=== PATIENT | female | born 1945 | race Caucasian/White ===

== ENCOUNTER 2023-08-05 08:43 | Outpatient (OUT) | payer MEDICARE, BC, SELFPAY ==
--- NOTE | 2023-08-05 | VEIN_ITS ---
Patient: BROWN LAI Exam Date: 08/05/2023 : 1945 Gender:F Ordering : DR JORGE L SANCHES M.D. Admission #: [id number] Family : Order #: [id number] CLICK HERE TO VIEW EXAM RADIOLOGY REPORT PROCEDURE: VC EXT VENOUS REFLUX TARIK LMTD COMPARISON: None. INDICATIONS: Pain due to varicose veins of bilateral legs I83.813 TECHNIQUE: Duplex imaging of the lower extremity to assess the deep and superficial venous system for the presence of deep or superficial venous incompetence and to document the location and severity of disease. The study includes evaluation of the great saphenous vein (GSV), anterior accessory saphenous vein (AASV) and small saphenous vein (SSV). Patient scanned in reverse Trendelenburg and standing. FINDINGS: RIGHT LOWER EXTREMITY: Saphenofemoral Junction Reflux: Yes 9.0mm 0.7 sec GSV: Diam (mm) Reflux/ Time (sec) Proximal Thigh 8.3 Yes 0.5 Mid Thigh 4.5 Yes 1.4 Distal Thigh 2.8 No Prox Calf 3.6 Yes 0.4 Mid Calf 2.5 Yes 0.4 Saphenopopliteal Junction Reflux: 4.1mm Yes 3.0 SSV: Proximal Calf 3.1 Yes 2.1 Mid Calf 3.3 Yes 2.1 AASV: Proximal Thigh 3.3 Yes 0.6 Mid Thigh 2.4 No Distal Thigh Thrombi: No acute or chronic thrombus. Compressibility: Normal. Flow: Minimal deep venous reflux. Preforator: Prox medial lower leg 3.4 mm with 2.3s reflux. Tech Note: Marked arterial plaque distal WEIGHT LOSS PHYSICIAN. Incompetent varicose vein proximal medial lower leg measures 2.0 mm with 0.4s reflux. Lateral knee varicosity measures 2.3 mm with 0.8s reflux. LEFT LOWER EXTREMITY: Saphenofemoral Junction Reflux: Yes 9.0 mm 0.8 sec GSV: Diam (mm) Reflux/Time (sec) Proximal Thigh 7.9 Yes 0.8 Mid Thigh 4.5 Yes 2.0 Distal Thigh 3.7 Yes 2.2 Prox Calf 2.6 Yes 0.6 Mid Calf 2.1 Yes 0.5 Saphenopopliteal Junction Relux: 2.1 mm Yes 0.3 SSV: Proximal Calf 2.4 Yes 1.8 Mid Calf 3.0 Yes 0.2 AASV: Proximal Thigh 3.7 No Mid Thigh 2.5 Yes 2.0 Distal Thigh Thrombi: No acute or chronic thrombus. Compressibility: Normal. Flow: Mild deep venous reflux. Netting Weaver: Prox posterior calf off gastroc 4.7 mm with 1.4s reflux. Tech Note: Marked arterial plaque distal WEIGHT LOSS PHYSICIAN. Incompetent varicose vein proximal posterior calf off cone former measures 4.6 mm with 2.5s reflux. CONCLUSION: 1. Mild right and moderate left great saphenous vein venous insufficiency with dilatation and saphenofemoral junction reflux 2. Mild to moderate bilateral small saphenous vein venous insufficiency with saphenous popliteal junction reflux on the right but no dilatation 3. Moderate venous insufficiency left anterior accessory saphenous vein with no dilatation 4. Bilateral incompetent perforating veins 5. Left leg incompetent varicose veins Dictated by: Jorge L Sanches MD on 08/05/2023 at 10:11 Approved by: Jorge L Sanches MD on 08/05/2023 at 10:13
--- NOTE | 2023-08-05 | VEIN_ITS ---
Patient: BROWN LAI Exam Date: 08/05/2023 : 1945 Gender:F Ordering : DR JORGE L SANCHES M.D. Admission #: [id number] Family : Order #: [id number] CLICK HERE TO VIEW EXAM RADIOLOGY REPORT PROCEDURE: FACILITY [facility] - OFFICE VISIT INITIAL COMPARISON: None. PROGRESS NOTES: 78-year-old female who presents with a 20 year history of lower extremity pain, swelling and varicose veins . The patient rates pain as a 9 on a scale of 1-10. The patient describes the pain as aching burning occasionally dull. The patient's symptoms are significantly exacerbated by prolonged sitting and standing and affect her activities of daily living including her dancing which she likes to do several times per week. The patient does exercise by walking multiple days per week in addition to her dancing. The patient's symptoms are marginally improved by rest, leg elevation, exercise, support stockings which she has worn for approximately 20 years and over the counter ibuprofen and Tylenol. The patient worked in [employer] on her feet for over 40 years. The patient denies any signs and symptoms to suggest arterial ischemia. The patient describes a family history significant for cancer in her mother, aneurysm in her father. Congestive heart failure in a sister. . The patient has never smoked. The patient does not use alcohol, or illicit drugs. No history of deep venous thrombus or pulmonary embolus. See separate history and physical for medication list. No prior treatment for varicose or spider veins. Long-term use of compression stockings. Nursing notes were reviewed. After history and physical exam I discussed at length the pathophysiology of venous hypertension and possible treatments, therapies and strategies available. We discussed at length the importance of elevating the lower extremities above the level of the heart, increased physical activity and compression stocking use. We discussed surgical alternatives including ligation and stripping and phlebectomy. We discussed conservative treatment with compression stockings. We discussed intravenous laser ablation, micro foam chemical ablation and injection sclerotherapy. Risks benefits and alternatives were discussed with the patient and questions were answered Ultrasound venous reflux study performed the same day was discussed at length with the patient. The report demonstrates mild right and moderate left great saphenous vein venous insufficiency with saphenofemoral junction reflux. Mild right moderate bilateral small saphenous vein venous insufficiency without dilatation. Moderate left anterior accessory saphenous vein venous insufficiency without dilatation. Bilateral incompetent perforating veins the left leg incompetent varicose veins. PHYSICAL EXAM: The right leg demonstrates mild scattered varicose and reticular veins. No active ulceration. Mild subcutaneous edema of the ankle. No active ulceration. No hemosiderin staining. The left leg demonstrates mild scattered varicose and reticular veins. No active ulceration. Mild subcutaneous edema of the ankle. No active ulceration. No hemosiderin staining. Both thighs, legs and feet were symmetrically warm to the touch. Good posterior tibial and dorsalis pedis pulses were present bilaterally. VEIN/[facility] IMPRESSION: 1. Bilateral great saphenous vein venous insufficiency with dilatation, left greater than right. Bilateral small saphenous vein and left anterior accessory saphenous vein venous insufficiency without dilatation 2. Moderate left lower extremity varicose veins 3. Mild bilateral lower extremity subcutaneous edema 4. Mild flow significant arterial disease 5. CEAP: C3, Ep, As, Pr PLAN: 1. Endovenous laser ablation left great saphenous vein 2. Micro foam chemical ablation left leg incompetent varicose veins 3. Bilateral injection sclerotherapy for reticular and spider veins 4. Long-term use bilateral 20-30 mm compression stockings 5. Elevated legs and continued increased physical activity for symptomatic relief Nurse notes, history and physical were reviewed and confirmed, see attached forms. The nurse was present throughout the physical exam and consultation Dictated by: Jorge L Sanches MD on 08/05/2023 at 12:08 Approved by: Jorge L Sanches MD on 08/05/2023 at 12:13
== END 2023-08-05 08:44 | disposition home or self-care (01) ==
LOC: VC 08:44
PROVIDERS: PCP Radiology Diagnostic Radiology; Visit Provider Radiology Diagnostic Radiology
DX: I83.813 Varicose veins of bilateral lower extremities with pain (principal)
CPT/HCPCS: 93970; G0463

== ENCOUNTER 2023-09-04 09:51 | Outpatient (OUT) | payer MEDICARE, BC, SELFPAY ==
--- NOTE | 2023-09-04 09:53 | VEIN_ITS ---
The [address] [address] Patient Name: BROWN LAI MRN: [id number] date: 1945 Sex: F Assigned Patient Location: Current Patient Location: Accession/Order Number: [id number] Exam Date: 09/04/2023 10:25 Report Date: 09/04/2023 11:19 At the request of: FIDELIA ALAN Procedure: VC Endovenous Ablation 1VeinLT EXAMINATION: VC Endovenous Ablation 1VeinLT HISTORY: I83.813 Painful varicose veins of bilat lower extremities The risks and benefits of the procedure had been previously discussed, and were rediscussed at length. Informed written consent was obtained. Flavia Em RN and Ute Hughes RDMS, RVT assisted. Time out procedure was performed. The left lower extremity was prepared and draped in the usual sterile fashion to allow knee flexion in the sterile field. Duplex ultrasound probe was draped in a sterile cover, sterile transmission gel was used. Venous mapping was performed with the areas of dilation and large tributaries marked. The total length was 32 cm from the entry proximal calf to 3 cm below the Saphenofemoral junction. The diameter of the left great saphenous vein ranged from 7.9 mm. A 30 gauge needle and 1% buffered lidocaine was used to anesthetize the entry site. A 4 mm incision was made with a scalpel and the saphenous vein was entered percutaneously under direct ultrasound guidance with a micropuncture set, a single stick was successful in gaining access. A micro-guide wire was inserted and the needle removed. A micro-set including a dilator was inserted over the microwire and the needle and dilator were removed. A guide wire was inserted through the micro-set and guided through the saphenous vein to the saphenofemoral junction. The dilator was removed and an introducer sheath was inserted over the wire until the end of the sheath entered the saphenofemoral junction. The dilator and wire were removed and the 600 micron fiber was introduced and placed and positioned so that it extended beyond the sheath and was 3 cm distal to the saphenofemoral or saphenopopliteal junction. Final position of the fiber was determined by ultrasound guidance and duplex imaging. Tumescent anesthetic was delivered by ultrasound guidance. 250 cc of fluid was delivered along the entire course of the saphenous vein. The solution consisted of 1000 cc of normal saline with 40 mL of 1% lidocaine and 20 mL of sodium bicarbonate. A final positioning check was made. The energy source was turned on by means of the foot pedal and the fiber and sheath were withdrawn. The total number of Joules delivered was 1528. The laser was active for 191 seconds under continuous pulse, average laser use of 8 J. Laser start time 10:40 AM, 09/04/2023. Laser stop time 10:45 AM, 09/04/2023. A duplex ultrasound revealed compressibility and flow at the saphenofemoral junction immediately after the procedure. Hemostasis at the access site was achieved. The skin incision of the saphenous vein was closed with a 4 x 4. A compression stocking was applied. Postop instructions were given. A follow up appointment was recommended and scheduled. The patient tolerated the procedure well. Electronically authenticated by: ROBIN CHARLES Date: 09/04/2023 11:19
[2023-09-04] MEDS: LIDOCAINE HCL 1% 100 MG/10 ML MDV INJ (10:23)
[2023-09-04] MEDS: 0.9 % SODIUM CHLORIDE 500 ML, LIDOCAINE HCL 20 ML, SODIUM BICARBONATE 10 MEQ INJ (10:24)
== END 2023-09-04 09:52 | disposition home or self-care (01) ==
PROVIDERS: PCP Radiology Diagnostic Radiology; Visit Provider Radiology Diagnostic Radiology
DX: I83.813 Varicose veins of bilateral lower extremities with pain (principal)
CPT/HCPCS: 36478

== ENCOUNTER 2023-09-11 09:16 | Outpatient (OUT) | payer MEDICARE, BC, SELFPAY ==
--- NOTE | 2023-09-11 | VEIN_ITS ---
Patient: BROWN LAI Exam Date: 09/11/2023 : 1945 Gender:F Ordering : DR JORGE L SANCHES M.D. Admission #: [id number] Family : Order #: [id number] CLICK HERE TO VIEW EXAM RADIOLOGY REPORT PROCEDURE: [facility] LMTD VEIN C[facility] - OFFICE VISIT FOLLOW UP COMPARISON: None. PROGRESS NOTES: The patient reports no significant problems following intravenous laser ablation left great saphenous vein. The patient did not require oral analgesics. The patient has worn her compression stocking. The patient has tried exercise to the best of her ability. Physical exam demonstrates no areas of bruising. No erythema or warmth to suggest cellulitis with oral by this. No ulceration Review of the ultrasound performed the same day demonstrates occlusive thrombus extending throughout the treated left great saphenous vein with heat induced thrombus 1.6 cm from the saphenofemoral junction. No deep vein thrombus.. The patient expressed a desire to proceed with treatment of incompetent left leg varicose veins with micro foam chemical ablation. VEIN/[facility] Facility EST LMTD IMPRESSION: 1. Successful ablation of the left great saphenous vein. 2. Persistent incompetent left leg varicose veins. PLAN: Micro foam chemical ablation left leg incompetent varicose veins Nurse notes, history and physical were reviewed and confirmed, see attached forms. The nurse was present throughout the physical exam and consultation Dictated by: Jorge L Sanches MD on 09/11/2023 at 11:26 Approved by: Jorge L Sanches MD on 09/11/2023 at 13:15
--- NOTE | 2023-09-11 | VEIN_ITS ---
Patient: BROWN LAI Exam Date: 09/11/2023 : 1945 Gender:F Ordering : DR JORGE L SANCHES M.D. Admission #: [id number] Family : Order #: [id number] CLICK HERE TO VIEW EXAM RADIOLOGY REPORT PROCEDURE: VC EXT VENOUS LT LIMITED COMPARISON: None. INDICATIONS: Phlebitis of superficial veins of rt lower extremity I80.01 TECHNIQUE: Lower extremity king scale and Duplex Doppler evaluation of the deep venous system from the inguinal ligament through the calf veins. FINDINGS: REGION: Left lower extremity. THROMBI: Negative for DVT. Echogenic thrombus visualized 1.6 cm from the saphenofemoral junction and extends throughout the great saphenous vein to proximal medial lower leg at point of catheter insertion. COMPRESSIBILITY: Non-compressible segments corresponding to thrombus FLOW: Areas of no flow corresponding to thrombus CONCLUSION: Post ablation occlusion of left great saphenous vein with heat induced thrombus 1.6 cm from the saphenofemoral junction. Dictated by: Jorge L Sanches MD on 09/11/2023 at 09:57 Approved by: Jorge L Sanches MD on 09/11/2023 at 10:05
== END 2023-09-11 09:17 | disposition home or self-care (01) ==
PROVIDERS: PCP Radiology Diagnostic Radiology; Visit Provider Radiology Diagnostic Radiology
DX: I80.02 Phlebitis and thrombophlebitis of superficial vessels of left lower extremity (principal)
CPT/HCPCS: 93971; G0463

== ENCOUNTER 2023-09-25 09:02 | Outpatient (OUT) | payer MEDICARE, BC, SELFPAY ==
--- NOTE | 2023-09-25 09:05 | VEIN_ITS ---
The [address] [address] Patient Name: BROWN LAI MRN: [id number] date: 1945 Sex: F Assigned Patient Location: Current Patient Location: Accession/Order Number: [id number] Exam Date: 09/25/2023 09:05 Report Date: 09/25/2023 12:34 At the request of: FIDELIA ALAN Procedure: VC INJ Foam Sclerosant WUS FORM TAMPER OPERATOR PROCEDURE: VC INJ Foam Sclerosant WUS FORM TAMPER OPERATOR COMPARISON: None. HISTORY: I83.813 Painful varicose veins of bilateral lower extremitie Pre-operative Diagnosis: CEAP class C3 venous insufficiency with pain, tenderness, edema and incompetent left saphenous and varicose vein(s), chronic venous insufficiency left leg secondary to venous incompetence Post-operative Diagnosis: CEAP class C3 venous insufficiency with pain, tenderness, edema and incompetent left saphenous and varicose vein(s), chronic venous insufficiency left leg secondary to venous incompetence Procedure Performed: 1. Ultrasound-guided microfoam chemical ablation with Varithenaregistered 2. Intraoperative ultrasound guidance Anesthesia: None Indications for Procedure: 78-year-old female who presents with long history of lower extremity pain swelling and edema. The patient failed conservative medical therapy including medical compression stockings, exercise and analgesics. Prior procedures include intravenous laser ablation. Multiple incompetent varicosities of the left leg. Duplex scan showed reflux and enlarged diameters up to 3.5 mm. The patient underwent informed consent including management options where the complications of infection, bleeding, pain, and skin injury were discussed. Particular attention was spent discussing thrombus extension and deep vein thrombosis as well as the possibility of pulmonary embolus and treatment with oral or injectable blood thinners. Procedure: The patient walked to the procedure room. All applicable staff donned appropriate apparel. A procedure timeout was performed to confirm correct patient, correct extremity, correct procedure, and correct room set-up including presence of all applicable supplies, devices, and drugs. A duplex ultrasound, performed by myself confirmed the location and incompetence of branch saphenous varicosities and their course was marked on the skin together with the dilated tributaries. The extent of treatment of the vein and the associated varicosities was determined through ultrasound mapping. The skin was prepped and then punctured with a butterfly needle and advanced under ultrasound guidance. The Varithenaregistered canister was activated and the canister was primed and purged as required in the instructions for use. Varithenaregistered was drawn into a sterile syringe. The following injections were made: 7 cc injected into 3.5 mm day left distal posterior thigh 3 cc injected into a 3 mm vein left posterior popliteal fossa 3 cc injected into a 3 mm vein right popliteal fossa Varithenaregistered was slowly administered at 0.5-1.0 cc/second with close observation by ultrasound of its course in the vessels. Total volume utilized was: 13 cc. Following administration of Varithenaregistered the leg was elevated and the patient was asked to repeatedly dorsiflex the ankle to limit flow of Varithenaregistered into perforating veins. Once appropriate spasm had been confirmed in the treated veins, the vascular catheter was removed from the leg and light pressure was applied over the puncture site for hemostasis. The common femoral and deep superficial veins were then evaluated for flow and compressibility prior to dressing placement. The lower extremity was kept elevated at 45 degrees above the horizontal and cording material was applied over the saphenous segments and tributaries to allow for eccentric compression over the target vessels including the targeted saphenous vein(s). A multilayer dressing was applied consisting of foam pads, coban and thigh-high 20-30 mm Hg compression elastic support hose were placed on the patient. The leg was lowered only after compression had been applied and the patient was immediately ambulatory. The patient ambulated 10 minutes under supervision and was without apparent concerns at time of release. Post-care instructions include advising patient to keep post-treatment bandages in place and dry for 48 hours, avoid extended periods of inactivity, avoid heavy exercise for one week, wear compression stockings on the treated leg continuously for two weeks, to walk daily for 10 minutes over the next month. The patient was instructed to take an anti-inflammatory medicine as needed and to follow up for color duplex scan of the Saphenous veins, the treated branch saphenous varicosities, the adjacent deep veins, and additional treatment within 7 days. PERSONNEL: Kobe Donahue RN Electronically authenticated by: FIDELIA ALAN Date: 09/25/2023 12:34
--- OUTSIDE RECORDS SUMMARY | 2023-10-27 20:04 | XMS_ITS | CCD ---
Author Name Unknown Address [address] [facility] [address] [place] [address] Organization [facility] Care Team Providers Care Test Automation Architect Name Role Phone Unknown, Referring Provider Unavailable Unav ailable Homero Enrique Primary Care Provider [phone] Kaleigh Segovia CNP Unavailable [phone] MapKaleigh espitia Unavailable Heydi Ye Unavailable Unavailable Unavailable Homero Enrique Unavailable Sergei Murray Unavailable Garrick Schultz Unavailable Homero Enrique Unavailable DO Homero Enrique Primary Care Provider [phone] IRLANDA Segovia Attending Provider DO Ferny Porfirio Emergency Provider [facility] - General Unavailable Unavail able UNKNOWN, PCP Primary Care Unavailable Dr. Garrick Schultz Attending Unavailable Dr. Garrick Schultz Referring Unavailable Dr. Garrick Schultz Attending Unavailable Dr. Garrick Schultz Referring Unavailable Homero Enrique Primary Care Unavailabl Homero Cantrell Primary Care Unavailabl armaan MURRAY, Dr. SERGEI Matos Referring Unavailable Dr. SERGEI MURRAY Attending Unavailable Homero Enrique Referring Unavailasya MURRAY, Dr. SERGEI Matos Attending Unavailable Homero Enrique Primary Care Unavailabl e UNKNOWN, PCP Primary Care Unavailable Self, Referral Referring Unavailable Dr. SERGEI MURRAY Attending Unavailable Homero Enrique Primary Care Unavailabl e Maura, Dr. Quiñonez Admitting Unavailable Maura, Dr. Quiñonez Referring Unavailable TREVOR, Dr. SERGEI Matos Attending Unavailable Klaus, Homero Heard Primary Care Unavailabl e TREVOR, Dr. SERGEI Matos Referring Unavailable TREVOR, Dr. SERGEI Matos Admitting Unavailable TREVOR, Dr. SERGEI Matos Attending Unavailable Klaus, Homero Primary Care Provider [phone] Mapus, GAS DISPENSER Tona K Attending Provider [phone] Nathaly, DO Gagnon Attending Provider Klaus, DO Homero Primary Care Provider Mapus, GAS DISPENSER Tondra K Attending Provider [phone] Klaus, DO Homero Attending Provider Klaus, Homero Attending Unavailable Klaus, Homero Admitting Unavailable Klaus, Homero Primary Care Unavailable Klaus, Homero Primary Care Unavailable Nathaly, Kalin Admitting Unavailable Nathaly, Kalin Attending Unavailable Klaus, Hoemro Primary Care Unavailable Mapus, Tondra K Admitting Unavailable Mapus, Tondra K Attending Unavailable Klaus, Homero Primary Care Unavailable Mapus, Tondra K Admitting Unavailable Mapus, Tondra K Attending Unavailable Klaus, Homero Primary Care Unavailable Klaus, Homero Attending Unavailable Klaus, Homero Admitting Unavailable Klaus, Homero P Primary Care Unavailable Klaus, Homero P Attending Unavailable Klaus, Homero P Attending Unavailable Klaus, Homero P Primary Care Unavailable [place], Homero P Primary Care Unavailable [place], Homero P Attending Unavailable Klaus, Homero P Primary Care Unavailable [place], Homero P Attending Unavailable [place], Homero P Primary Care Unavailable [place], Homero P Attending Unavailable [place], Homero P Admitting Unavailable [place], Homero P Primary Care Unavailable [place], Homero P Attending Unavailable [place], Homero P Primary Care Unavailable [place], Homero P Attending Unavailable Allergies Allergy Classification Reported Allergen(s) Allergy Type Date of Onset Reaction(s) Facility (20 sources) ezetimibe; Translations: [Zetia] Drug Allergy 2 Unknown [facility] (20 sources) Simvastatin; Translations: [Zocor] Drug Allergy 2 Other: See Comments [facility] (7 sources) raNITIdine Drug Allergy 0 Other: See Comments [facility] (19 sources) metFORMIN Drug Allergy g/i side effects [employer] Other (2 sources) ezetimibe Drug Allergy Other [facility] Comment on above: muscle cramps (2 sources) Simvastatin Drug Allergy Other [facility] Comment on above: Muscle cramps (6 sources) Simvastatin; Translations: [simvastatin] Drug Allergy 07-19-2022 Cramping of the Muscles [facility] (1 source) raNITIdine Drug Allergy 07-19-2022 [facility] Repository Medications Current Medications Medication Drug Class(es) Dates Sig (Normalized) Sig (Original) acetaminophen 325 mg oral tablet (2 sources) take 2 tablets by mouth every four hours as needed acetaminophen 325 mg oral tablet ; 2 tab(s) orally every 4 hours, As Needed Quantity: 0 Refills: 0 Ordered: 27-Jun-2022 Gissell Araujo Status: Other Generic Substitution Allowed amLODIPine 5 mg oral tablet (20 sources) Dihydropyridine Calcium Channel Fransisca Start: 02-14-2016 take 5 mg by mouth once daily at bedtime Amlodipine Active 5 MG PO Daily at bedtime June 12, 2021 12:00am Comment on above: Take 5 mg by mouth o nce daily. ascorbic acid 250 mg oral tablet (20 sources) Vitamin C Start: 06-12-2021 take 1 tablet by mouth once daily at bedtime Ascorbic Acid (Vitamin C) (Vitamin C) 250 mg Tablet Active 250 MG PO Daily at bedtime June 12, 2021 12:00am take 1 tablet by mouth once nanda y Vitamin C 100 MG Oral Tablet Take 1 tablet daily Quantity: 0 Refills: 0 Ordered: 05-Aug-2022 DO Active aspirin 81 mg chewable tablet (8 sources) Platelet Aggregation Inhibitor, Nonsteroidal Anti-inflammatory Drug Start: 06-12-2021 take 81 mg by mouth once daily at bedtime Aspirin Active 81 MG PO Daily at bedtime June 12, 2021 12:00am take 1 tablet by mouth once nanda y Aspirin EC 81 MG Oral Tablet Delayed Release TAKE 1 TABLET DAILY. Quantity: 90 Refills: 3 Ordered: 05-Aug-2022 Garrick Schultz DO Active take 1 tablet by mouth once nanda y aspirin 81 mg oral tablet ; 1 tab(s) orally once a day Quantity: 0 Refills: 0 Ordered: 27-Jun-2022 Gissell Araujo Generic Substitution Allowed biotin 1 mg chewable tablet (20 sources) Start: 06-12-2021 take 3000 ug by mout h once daily at bedtime Biotin Active 3000 MCG PO Daily at bedtime June 12, 2021 12:00am take 1 tablet by stacey th every twenty-four hours Biotin 300 MCG 1 tablet Orally Once a day Active take 1 tablet by mouth once nanda y take 1 tablet by mouth once nanda y Biotin 300 MCG 1 tablet Orally Once a day Active cholecalciferol 0.025 mg oral tablet (11 sources) Vitamin D Start: 06-12-2021 take 1 tablet by mouth once daily at bedtime Cholecalciferol (Vitamin D3) (Vitamin D3) 25 mcg (1,000 unit) Tablet Active 25 MCG PO Daily at bedtime June 12, 2021 12:00am take 1 tablet by stacey th every twenty-four hours Vitamin D3 25 MCG (1000 UT) 1 tablet Orally Once a day Active Dexcom G7 Ec Teacher - (2 sources) Start: 07-28-2023 Dexcom G7 Ec Teacher - as directed n/a daily for 365 Jul, Active Dexcom G7 Sensor - (2 sources) Start: 07-28-2023 Dexcom G7 Sensor - as directed SQ change every 10 days for 90 days Jul, Active 0.5 ml dulaglutide 3 mg/ml auto-injector (20 sources) GLP-1 Receptor Agonist Start: 06-26-2022 inject 0.75 mg by subcutaneous injection every week Trulicity 1.5 MG/0.5ML as directed Subcutaneous once weekly for 84 days stop trulicity 0.75mg Jun, Active Start: 06-12-2021 Dulaglutide (T rulicity) 0.75 mg/0.5 mL pen injector Active 0.75 MG SUBCUT every week June 12, 2021 12:00am Start: 04-16-2020 Trulicity 0.75 MG/0.5ML Subcutaneous Solution Pen-injector USE DIRECTED Quantity: 0 Refills: 0 Ordered: 24-Mar-2022 Sergei Murray MD Start : 24-Mar-2022 Active inject 0.5 mL by sub cutaneous injection every week Trulicity 1.5 MG/0.5ML INJECT 0.5 ML (1.5 MG) SUBCUTANEOUSLY ONCE A WEEK DIRECTED for 84 Active inject 0.75 mg by crawford bcutaneous injection every week Trulicity (dulaglutide injection pen) 0.75 mg / 0.5m 0.75mg 0.75mg Dose SQ Once Weekly for 90 day(s) Active Comment on above: INJECT 0.75 mg once SUBCUTANEOUSLY once weekly empagliflozin 10 mg oral tablet (20 sources) Sodium-Glucose Cotransporter 2 Inhibitor Start: 03-01-2020 take 1 tablet by mouth once daily in the morning Empagliflozin (Jardiance) 10 mg tablet Active 10 MG PO Every morning June 12, 2021 12:00am Comment on above: Take 10 mg by mouth every morning. estrogens, conjugated (residential) 0.625 mg/ml vaginal cream (2 sources) Estrogen conjugated estro gens 0.625 mg/g vaginal cream with applicator ; 1 application vaginal 2 times a week, As Needed Quantity: 0 Refills: 0 Ordered: 27-Jun-2022 Gissell Araujo Status: Other Generic Substitution Allowed Front wheeled Walker (2 sources) Start: 06-30-2022 Front wheeled Walker ; 1 unit(s) once to use as needed for ambulatory assistance Quantity: 1 Refills: 0 Ordered: 30-Jun-2022 Alexandra Lafleur Start: 30-Jun-2022 Generic Substitution Allowed LEVEMIR FLEXTOUCH 100 UNIT/ ML (18 sources) LEVEMIR FLEXTOUC H 100 UNIT/ ML 30 UNITS Subcutaneous HS for 90 days (titrate up to max 40 units/day) Active LEVEMIR FLEXTOUC H 100 UNIT/ ML 28 UNITS Subcutaneous HS Active LEVEMIR FLEXTOUC H 100 UNIT/ ML Inject 30 units Subcutaneous Daily for 90 days Active LEVEMIR FLEXTOUC H 100 UNIT/ ML 30 UNITS Subcutaneous HS for 90 day(s) Active LEVEMIR FLEXTOUC H 100 UNIT/ ML 30 UNITS Subcutaneous HS Active LEVEMIR FLEXTOUCH 100 UNIT/ML (2 sources) LEVEMIR FLEXTOUC H 100 UNIT/ML 30 UNITS Subcutaneous HS for 30 day(s) Active naproxen sodium 220 mg oral tablet (1 source) Nonsteroidal Anti-inflammatory Drug take 1 tablet by mouth every twelve hours as needed naproxen sodium 220 mg oral tablet ; 1 tab(s) orally every 12 hours, As Needed for pain Quantity: 0 Refills: 0 Ordered: 22-Jul-2022 Guru Huang Generic Substitution Allowed omeprazole 20 mg delayed release oral tablet (20 sources) Proton Pump Inhibitor Start: 2 End: 2 take 1 tablet by mouth once daily omeprazole 20 mg oral delayed release tablet ; 1 tab(s) orally once a day Quantity: 21 Refills: 0 Ordered: 01-Jul-2022 Alexandra Lafleur Start: 01-Jul-2022 End: 21-Jul-2022 Generic Substitution Allowed Comments: Obtain medical advice before taking any non-prescription drugs as some may affect the action of this medication.Swallow whole. Do not crush. Start: 06-12-2021 take 40 mg by mouth once daily at bedtime Omeprazole Active 40 MG PO Daily at bedtime June 12, 2021 12:00am take 1 capsule by mo ut once daily PriLOSEC 20 MG 1 capsule 30 minutes before morning meal Orally Once a day Active take 1 capsule by mo uth once daily Omeprazole 40 MG Oral Capsule Delayed Release TAKE 1 CAPSULE Daily Quantity: 30 Refills: 0 Ordered: 05-Aug-2022 DO Active Comment on above: Obtain medical advic e before taking any non-prescription drugs as some may affect the action of this medication.Swallow whole. Do not crush. True Metrix Blood Glucose Te st 100 (19 sources) True Metrix Bloo d Glucose Test 100 use with True Metrix meter SQ tid for 90 days Dx: E11.39 Active True Metrix Bloo d Glucose Test 100 use with True Metrix meter SQ tid for 90 days Active True Metrix Meter w/Device (19 sources) True Metrix Mete r w/Device meter SQ qid for 365 days Active vitamin b12 1 mg oral tablet (20 sources) Vitamin B12 Start: 06-12-2021 take 1 tablet by mouth once daily at bedtime Cyanocobalamin (Vitamin B-12) (Vitamin B-12) 1,000 mcg Tablet Active 1000 MCG PO Daily at bedtime June 12, 2021 12:00am take 1 tablet by mouth once nanda y Vitamin B12 100 MCG Oral Tablet Take 1 tablet daily Quantity: 0 Refills: 0 Ordered: 05-Aug-2022 DO Active take 1 tablet by mouth once nanda y take 1 tablet by mouth once nanda y Cyanocobalamin 1000 MCG 1 tablet Orally Once a day Active Vitamin C 250 MG (4 sources) take 1 tablet by stacey th once daily Vitamin C 250 MG 1 tablet Orally Once a day Active Vitamin D3 25 MCG (1000 UT) (13 sources) take 1 tablet by stacey th once daily Vitamin D3 25 MCG (1000 UT) 1 tablet Orally Once a day Active Completed/Discontinued Medications Medication Drug Class(es) Dates Sig (Normalized) Sig (Original) amoxicillin 875 mg / clavulanate 125 mg oral tablet (5 sources) Penicillin-class Antibacterial Start: 10-09-2018 End: 06-12-2021 take 1 tablet by mouth twice daily Amoxicillin-Pot Clavulanate (Augmentin) 875-125 mg tablet Discontinued 1 TAB PO Twice daily 28 08October 09, 2018 1:00am June 12, 2021 8:00am atorvastatin 20 mg oral tablet (20 sources) HMG-CoA Reductase Inhibitor Start: 03-24-2022 Atorvastatin Calcium 20 MG Oral Tablet Quantity: 0 Refills: 0 Ordered: 24-Mar-2022 DO Start : 24-Mar-2022 Active Start: 10-12-2019 take 10 mg by mouth once daily at bedtime Atorvastatin Active 10 MG PO Daily at bedtime June 12, 2021 12:00am Start: 01-11-2018 take 1 tablet by stacey th every twenty-four hours Atorvastatin Calcium 20 MG 1 tablet Orally Once a day for 90 days Aug, Active Comment on above: Take 20 mg by mouth once daily. azelastine hydrochloride 0.137 mg/actuat metered dose nasal spray (8 sources) Histamine-1 Receptor Antagonist Start: 03-24-2022 Azelastine HCl - 0.1 % Nasal Solution INSTILL SQUIRT PRN Quantity: 0 Refills: 0 Ordered: 24-Mar-2022 DO Start : 24-Mar-2022 Active Start: 08-17-2014 take 1 spray(s) nasa l route twice daily azelastine (ASTELIN,ASTEPRO) 0.1% nasal spray Indications: Anemia , Fatigue , Need for prophylactic vaccination and inoculation against influenza Use 1 Hewitt in each nostril twice daily. 1 Bottle 3 08/17/2014 Active azelastine 137 m cg/inh (0.1%) nasal spray ; 1 spray(s) nasal 2 times a day Quantity: 0 Refills: 0 Ordered: 27-Jun-2022 Gissell Araujo Generic Substitution Allowed Comment on above: Use 1 Hewitt in each nostril twice daily. citalopram 20 mg oral tablet (20 sources) Serotonin Reuptake Inhibitor Start: 03-24-2022 Citalopram Hydrobrom martell 20 MG Oral Tablet Quantity: 0 Refills: 0 Ordered: 24-Mar-2022 DO Start : 24-Mar-2022 Active Start: 03-15-2018 End: 07-19-2022 take 20 mg by mouth once daily at bedtime Citalopram Discontinued 20 MG PO Daily at bedtime June 12, 2021 12:00am July 19, 2022 7:58pm Comment on above: Take 20 mg by mouth once daily. ergocalciferol 1.25 mg oral capsule (8 sources) Provitamin D2 Compound Start: 02-18-2018 take 1 capsule by mouth every week Ergocalciferol 1.25 MG (24784 UT) Oral Capsule TAKE 1 CAPSULE Weekly Quantity: 0 Refills: 0 Ordered: 24-Mar-2022 DO Start : 24-Mar-2022 Active take 1 tablet by mouth every k ergocalciferol 1.25 mg (50,000 intl units) oral tablet ; 1 tab(s) orally once a week (Thursday) Quantity: 0 Refills: 0 Ordered: 27-Jun-2022 Gissell Araujo Generic Substitution Allowed Comment on above: Take 50,000 Units by mouth once each week. escitalopram 10 mg oral tablet (7 sources) Serotonin Reuptake Inhibitor Start: 03-24-2022 Escitalopram Oxalate 10 MG Oral Tablet Quantity: 0 Refills: 0 Ordered: 24-Mar-2022 DO Start : 24-Mar-2022 Active Start: 01-30-2014 take 1 tablet by stacey th once daily escitalopram (LEXAPRO) 10 mg tablet Indications: Anemia , Iron deficiency anemia , Depression , Breast cancer screening Take 1 tablet by mouth once daily. 30 tablet 1 01/30/2014 Active Comment on above: Take 1 tablet by stacey th once daily. hydroCHLOROthiazide 25 mg / lisinopril 20 mg oral tablet (20 sources) Thiazide Diuretic, Angiotensin Converting Enzyme Inhibitor Start: 03-24-2022 Lisinopril-hydroCHLOROthiazi de 20-25 MG Oral Tablet Quantity: 0 Refills: 0 Ordered: 24-Mar-2022 DO Start : 24-Mar-2022 Active Start: 09-20-2012 take 1 tablet by stacey th once daily at bedtime Lisinopril-Hydrochlorothiazide Active 1 TAB PO Daily at bedtime June 12, 2021 12:00am Comment on above: Take 1 tablet by stacey th once daily. hydrOXYzine hydrochloride 25 mg oral tablet (7 sources) Antihistamine Start: 03-24-2022 hydrOXYzine HC l - 25 MG Oral Tablet Quantity: 0 Refills: 0 Ordered: 24-Mar-2022 DO Start : 24-Mar-2022 Active Start: 03-13-2016 take 1 tablet by stacey once daily at bedtime hydrOXYzine HCl (ATARAX) 25 mg tablet Take 1 tablet by mouth daily at bedtime. 120 tablet 2 03/13/2016 Active Comment on above: Take 1 tablet by stacey daily at bedtime. 3 ml insulin detemir 100 unt/ml pen injector (14 sources) Insulin Analog Start: 03-24-2022 Levemir 100 UN IT/ML Subcutaneous Solution Quantity: 0 Refills: 0 Ordered: 24-Mar-2022 DO Start : 24-Mar-2022 Active Start: 06-12-2021 Insulin Detemi r U-100 (Levemir Flextouch U100 Insulin) 100 unit/mL (3 mL) insulin pen Active 30 UNIT SUBCUT Daily at bedtime June 12, 2021 12:00am Start: 08-15-2015 LEVEMIR FLEXTO UCH 100 unit/mL (3 mL) inpn injection 3 ml insulin lispro 100 unt/ml pen injector (2 sources) Insulin Analog Start: 02-21-2017 HUMALOG KWIKPE N 100 unit/mL inpn meloxicam 7.5 mg oral tablet (20 sources) Nonsteroidal Anti-inflammatory Drug Start: 03-24-2022 Meloxicam 7.5 MG Oral Tablet Quantity: 0 Refills: 0 Ordered: 24-Mar-2022 DO Start : 24-Mar-2022 Active Start: 06-12-2021 take 15 mg by mouth once daily in the morning Meloxicam Active 15 MG PO Every morning June 12, 2021 12:00am Start: 09-20-2012 take 1 tablet by mouth once da roel Meloxicam 7.5 MG Oral Tablet Take 1 tablet daily Quantity: 30 Refills: 0 Ordered: 24-Mar-2022 DO Start : 24-Mar-2022 Active Comment on above: Take 1 tablet by stacey th once daily. metFORMIN hydrochloride 500 mg oral tablet (2 sources) Biguanide Start: 09-20-2012 take 2 tablets by mouth twice daily metFORMIN 500 mg tablet Take 1,000 mg by mouth twice daily. 0 09/20/2012 Active Comment on above: Take 1,000 mg by stacey th twice daily. metoprolol tartrate 25 mg oral tablet (20 sources) beta-Adrenergic Fransisca Start: 05-20-2022 take 0.5 tablet by mouth twice daily Metoprolol Tartrate 25 MG Oral Tablet TAKE 1/2 TABLET TWICE DAILY Quantity: 90 Refills: 3 Ordered: 20-May-2022 Garrick Schultz DO Start : 20-May-2022 Active Start: 06-12-2021 take 12.5 mg by mout h twice daily Metoprolol Tartrate Active 12.5 MG PO Twice daily June 12, 2021 12:00am take 1 tablet by stacey th every twelve hours Metoprolol Succi mare Active ondansetron 4 mg disintegrating oral tablet (6 sources) Serotonin-3 Receptor Antagonist Start: 07-25-2022 take 1 tablet by mouth three times daily as needed for nausea Ondansetron 4 MG Oral Tablet Disintegrating Take 1 tablet, 3 times daily as needed for nausea. Quantity: 15 Refills: 0 Ordered: 25-Jul-2022 Sergei Murray MD Start : 25-Jul-2022 Active Start: 07-19-2022 take 4 mg by mouth e very eight hours Ondansetron Active 4 MG PO Q8H July 19, 2022 12:00am 24 hr oxybutynin chloride 5 mg extended release oral tablet (20 sources) Cholinergic Muscarinic Antagonist Start: 03-24-2022 take 1 tablet by mouth every twenty-four hours Oxybutynin Chloride ER 5 MG Oral Tablet Extended Release 24 Hour Quantity: 0 Refills: 0 Ordered: 24-Mar-2022 DO Start : 24-Mar-2022 Active Start: 06-02-2013 take 5 mg by mouth o nce daily at bedtime Oxybutynin Chloride Active 5 MG PO Daily at bedtime June 12, 2021 12:00am Comment on above: Take 5 mg by mouth o nce daily. oxyCODONE hydrochloride 5 mg oral tablet (2 sources) Opioid Agonist Start: 07-01-2022 End: 07-03-2022 take 1 tablet by mouth every six hours as needed oxyCODONE 5 mg oral tablet ; 1 tab(s) orally every 6 hours, As Needed -Pain - Mod (4-6) Quantity: 12 Refills: 0 Ordered: 01-Jul-2022 Alexandra Lafleur Start: 01-Jul-2022 End: 03-Jul-2022 Generic Substitution Allowed raNITIdine 150 mg oral tablet (2 sources) Histamine-2 Receptor Antagonist take 1 capsule by mouth once daily Zantac 150 MG 1 capsule Orally Once a day Not-Taking 24 hr tolterodine tartrate 4 mg extended release oral capsule (7 sources) Cholinergic Muscarinic Antagonist Start: 03-24-2022 take 1 capsule by mouth every twenty-four hours Detrol LA 4 MG Oral Capsule Extended Release 24 Hour Quantity: 0 Refills: 0 Ordered: 24-Mar-2022 DO Start : 24-Mar-2022 Active take 1 capsule by mouth once tigre ly tolterodine 4 mg oral capsule, extended release ; 1 cap(s) orally once a day Quantity: 0 Refills: 0 Ordered: 27-Jun-2022 Gissell Araujo Status: Other Generic Substitution Allowed Comment on above: Take 4 mg by mouth o nce daily. Problems Active Problems Problem Classification Problem Date Documented Da te Episodic/Chronic Abdominal hernia (13 sources) Paraesophageal hernia; Translations: [Diaphragmatic hernia without mention of obstruction or gangrene] Onset: 09-16-2021 Resolved: 10-14-2021 Episodic Abdominal pain (6 sources) Abdominal pain; Translations: [Abdominal pain, unspecified site] Onset: 07-22-2022 07-22-2022 Episodic Acute and unspecified renal failure (1 source) Acute kidney failure, unspecified; Translations: [Acute kidney failure, unspecified] Onset: 07-24-2022 Episodic Administrative/social admission (20 sources) Life event finding; Translations: [Other stressful life events affecting family and household] Onset: 08-01-2021 Resolved: 06-26-2022 Episodic Allergic reactions (1 source) Allergy status to other drugs, medicaments and biological substances status; Translations: [Allergy status to other drug/meds/biol subst] Onset: 07-01-2022 Episodic Anxiety disorders (12 sources) Acute stress disorder; Translations: [Acute stress reaction] Onset: 07-01-2022 Chronic Asthma (11 sources) Reactive airway disease; Translations: [Mild persistent asthma, uncomplicated] Onset: 09-16-2021 Resolved: 09-16-2021 Chronic Cardiac dysrhythmias (3 sources) Palpitations; Translations: [Palpitations] Episodic Chronic kidney disease (5 sources) Chronic kidney disease; Translations: [Chronic kidney disease, unspecified] Chronic Complications of surgical procedures or medical care (1 source) Esophageal anastomotic leak; Translations: [Other digestive system complications] 07-22-2022 Episodic Contraceptive and procreative management (1 source) Tubal ligation status; Translations: [Tubal ligation status] Onset: 07-24-2022 Episodic Coronary atherosclerosis and other heart disease (6 sources) Angina pectoris; Translations: [Other and unspecified angina pectoris] Chronic Deficiency and other anemia (6 sources) Anemia; Translations: [Anemia, unspecified] Onset: 09-23-2012 Episodic Diabetes mellitus with complications (20 sources) 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; Translations: [Type 2 diabetes mellitus with other diabetic ophthalmic complication] Onset: 01-27-2022 Resolved: 01-27-2022 Chronic Diabetes mellitus without complication (20 sources) Type 2 diabetes mellitus; Translations: [Type 2 diabetes mellitus without complications] Onset: 08-01-2021 Resolved: 06-26-2022 Chronic Disorders of lipid metabolism (20 sources) Mixed hyperlipidemia; Translations: [Mixed hyperlipidemia] Onset: 08-01-2021 Resolved: 06-26-2022 Chronic Esophageal disorders (1 source) Gastro-esophageal reflux disease without esophagitis; Translations: [Gastro-esophageal reflux disease without esophagitis] Onset: 07-24-2022 Chronic Essential hypertension (20 sources) Benign essential hypertension; Translations: [Essential (primary) hypertension] Onset: 08-01-2021 Resolved: 06-26-2022 Chronic Fluid and electrolyte disorders (1 source) Dehydration; Translations: [Dehydration] Onset: 07-24-2022 Episodic Malaise and fatigue (3 sources) Fatigue; Translations: [Other malaise and fatigue] Episodic Nausea and vomiting (6 sources) Nausea; Translations: [Nausea] 07-19-2022 Episodic Nutritional deficiencies (11 sources) Vitamin D deficiency; Translations: [Vitamin D deficiency, unspecified] Chronic Osteoarthritis (11 sources) Osteoarthritis of right knee joint; Translations: [Unilateral primary osteoarthritis, right knee] Chronic Other aftercare (11 sources) Patient encounter status; Translations: [Aftercare following joint replacement surgery] Chronic Other aftercare (19 sources) Long-term current use of insulin; Translations: [termite control servicer (current) use of insulin] Episodic Other aftercare (8 sources) senior care (current) use of insulin; Translations: [senior care current use of insulin Z79.4] Onset: 08-01-2021 Resolved: 06-26-2022 Episodic Other aftercare (1 source) termite control servicer (current) use of oral hypoglycemic drugs; Translations: [termite control servicer (current) use of oral hypoglycemic drugs] Onset: 07-24-2022 Episodic Other aftercare (1 source) termite control servicer (current) use of aspirin; Translations: [termite control servicer (current) use of aspirin] Onset: 07-24-2022 Episodic Other aftercare (1 source) termite control servicer (current) use of non-steroidal anti-inflammatories (NSAID); Translations: [senior care (current) use of non-steroidal non-inflam (NSAID)] Onset: 07-24-2022 Episodic Other and ill-defined heart disease (1 source) Aneurysm of coronary vessels; 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 Other connective tissue disease (1 source) Presence of right artificial knee joint; Translations: [Presence of right artificial knee joint] Onset: 07-24-2022 Chronic Other diseases of kidney and ureters (1 source) Other specified disorders of kidney and ureter; Translations: [Other specified disorders of kidney and ureter] Onset: 05-25-2023 Episodic Other gastrointestinal disorders (5 sources) Diarrhea; Translations: [Diarrhea, unspecified] 07-19-2022 Episodic Other lower respiratory disease (3 sources) Dyspnea on exertion; Translations: [Other respiratory abnormalities] Episodic Other lower respiratory disease (3 sources) Dyspnea; Translations: [Shortness of breath] Episodic Other lower respiratory disease (2 sources) Cough 07-21-2022 Episodic Comment on above: COUGH Other nutritional; endocrine; and metabolic disorders (19 sources) Body mass index 30+ - obesity; Translations: [Body mass index (BMI) 30.0-30.9, adult] Chronic Other nutritional; endocrine; and metabolic disorders (11 sources) Obese class I; Translations: [Body mass index (BMI) 31.0-31.9, adult] Chronic Other nutritional; endocrine; and metabolic disorders (11 sources) Obesity; Translations: [Obesity, unspecified] Chronic Other nutritional; endocrine; and metabolic disorders (3 sources) Body mass index (BMI) 30.0-30.9, adult Onset: 11-20-2021 Resolved: 06-26-2022 Chronic Other nutritional; endocrine; and metabolic disorders (1 source) Obesity, unspecified; Translations: [Obesity, unspecified] Onset: 07-01-2022 Chronic Other nutritional; endocrine; and metabolic disorders (1 source) Body mass index (BMI) 35.0-35.9, adult; Translations: [Body mass index [BMI] 35.0-35.9, adult] Onset: 07-01-2022 Chronic Other nutritional; endocrine; and metabolic disorders (2 sources) Body mass index (BMI) 29.0-29.9, adult; Translations: [BMI 29.0-29.9,adult Z68.29] Onset: 08-01-2021 Resolved: 08-01-2021 Episodic Other nutritional; endocrine; and metabolic disorders (3 sources) Overweight in adulthood with body mass index of 25 or more but less than 30; Translations: [Body Mass Index 29.0-29.9, adult] Episodic Other nutritional; endocrine; and metabolic disorders (2 sources) Overweight; Translations: [Overweight] Episodic Other nutritional; endocrine; and metabolic disorders (1 source) Body mass index (BMI) 27.0-27.9, adult Episodic Other nutritional; endocrine; and metabolic disorders (1 source) Body mass index (BMI) 28.0-28.9, adult Episodic Other screening for suspected conditions (not mental disorders or infectious disease) (3 sources) Cardiovascular stress test abnormal; Translations: [Other nonspecific abnormal results of function study of cardiovascular system] Episodic Residual codes; unclassified (1 source) Acquired absence of both cervix and uterus; Translations: [Acquired absence of both cervix and uterus] Onset: 07-24-2022 Episodic Rheumatoid arthritis and related disease (1 source) Rheumatoid arthritis, unspecified; Translations: [Rheumatoid arthritis, unspecified] Onset: 07-24-2022 Chronic Skin and subcutaneous tissue infections (11 sources) Cellulitis of abdominal wall ; Translations: [Cellulitis of abdominal wall] Episodic Unclassified (2 sources) LAP PARAESOPHAGEAL HERNIA W/ JIGAR 06-12-2022 Comment on above: LAP PARAESOPHAGEAL H ERNIA W/ JIGAR Unclassified (2 sources) Body mass index [BMI] 36.0-36.9, adult 2 Unclassified (2 sources) Body mass index (BMI) of 35.0 to 35.9 in adult 0 06-29-2022 Unclassified (1 source) RESCHEDULED 06-09-2022 Comment on above: RESCHEDULED Unclassified (1 source) ONE MTH RTN PER MD 07-17-2022 Comment on above: ONE MTH RTN PER MD Unclassified (1 source) Esophageal anastomotic leak 07-22-2022 Past or Other Problems Problem Classification Problem Date Documented Da te Episodic/Chronic Deficiency and other anemia (2 sources) Iron deficiency anemia; Translations: [Iron deficiency anemia, unspecified] Onset: 10-31-2013 10-31-2013 Episodic Nutritional deficiencies (1 source) Deficiency of other specified B group vitamins; Translations: [Vitamin B 12 deficiency E53.8] Onset: 08-01-2021 Resolved: 08-01-2021 Episodic Other gastrointestinal disorders (1 source) Change in bowel habit; Translations: [Change in bowel habit] Onset: 02-05-2023 Episodic Other lower respiratory disease (2 sources) Dyspnea, unspecified Onset: 09-16-2021 Resolved: 10-14-2021 Episodic Other lower respiratory disease (1 source) Other abnormalities of breathing Onset: 10-14-2021 Resolved: 10-14-2021 Episodic Unclassified (1 source) Never smoked tobacco; Translations: [Never a smoker] Results Test Name Value Interpretation Reference Range Facil ity A1C HEMOGLOBINon 07-28-2023 HbA1c (Bld) [Mass fraction] 7.7 % [employer] Other Glucose - FINGER STICKon Glucose [Mass/Vol] 134 mg/dL [employer] Other HbA1c (Bld) [Mass fraction]o n 07-28-2023 A1C HEMOGLOBIN [facility] Other Outside Recordson 07-28-2023 Outside Records [id number] [facility] Rad - Other Radiology Report on 05-26-2023 Rad - Other Radiology Report [id number] [facility] US renal BIon 05-25-2023 US renal BI [facility] [place] [address] Ultrasound Report Signed Patient: Brown Hale MR#: [id number] 10 : 1945 Acct:[id number] Age/Sex: 77 / F ADM Date: 05/25/23 Loc: Room: Type: [facility] Attending Dr: Homero Enrique DO Ordering Provider: Homero Enrique DO Date of Service: 05/25/23 US/US renal BI: N28.89 Copies to: Homero Enrique DO BILATERAL RENAL AND BLADDER ULTRASOUND CLINICAL HISTORY: Follow-up right renal nodule COMPARISON: CT 05/14/2023 and 06/03/2013 Estimation of renal size is approximately 10.5 cm on the right and 10.4 cm on the left. No shadowing calculi are identified. There might be slight fullness of the collecting systems however this may relate to multiple parapelvic renal cyst seen on the comparison CT exams. A 17 mm partially exophytic cyst is seen at the mid to upper pole of the right kidney. There is no perinephric fluid. The urinary bladder is partially distended with a volume of 121 mL. No contour or intraluminal abnormalities are seen. Bilateral ureteral jets are visualized. US/US renal BI IMPRESSION: BILATERAL PARAPELVIC CYSTS AND QUESTION OF MINIMAL FULLNESS OF THE COLLECTING SYSTEMS. RIGHT CORTICAL CYST AT THE SITE OF CONCERN ON RECENT CT STUDY. IT MAY BE HEMORRHAGIC. Impression dictated by: Lynsey Matthew M.D.05/25/2023 12:13 PM Dictation Location: [place] [address] Tech: Dangsavannah Chingce Transcribed By: ASHANTI 05/25/23 1213 Dictated By: Lynsey Matthew MD 05/25/23 1207 Signed By: 05/25/[address] [facility] Rad - Other Radiology Report on 05-20-2023 Rad - Other Radiology Report [id number] Normal [facility] CT abdomen pelvis w evelyn CT abdomen pelvis w con [facility] [address] [place] [address] [place] [address] CT Scan Report Signed Patient: Brown Hale MR#: [id number] 10 : 1945 Acct:[id number] Age/Sex: 77 / F ADM Date: 05/14/23 Loc: CT Room: Type: [facility] CL Attending Dr: Homero Enrique DO Copies to: Homero Enrique DO Ordering Provider: Homero Enrique DO Date of Service: 05/14/23 CT/CT abdomen pelvis w con: R10.9 CT abdomen and pelvis with contrast COMPARISON: 07/19/2022 CLINICAL DATA: Intermittent black stools and lower abdominal pain. Spiral images were obtained through the abdomen and pelvis following oral and 90 mL of Isovue-300. This CT exam was performed using one or more following dose reduction techniques: Automated exposure control, adjustment of the mA and/or kV according to patient size, or use of iterative reconstruction technique. Limited cuts through the lung bases show minimal atelectasis or scarring in the left. No calcified gallstones are noted. There is a phrygian cap. Small hepatic hypodensities are again seen, possibly cysts. The, duct appears slightly prominent though there our no suspect common duct stones. The spleen, pancreas and adrenal glands show no acute findings. There are bilateral symmetric renal nephrograms, without hydronephrosis. There are multiple bilateral parapelvic renal cysts. There are small cortical cysts bilaterally. There is also a nodule at the posterior lateral right kidney measuring 2 cm in greatest dimension on the coronal reconstructions. This lesion remains hyperattenuating and not a simple cyst. It may be minimally larger. There is atherosclerotic plaque at the aorta and iliac arteries. There are no enlarged lymph nodes or ascites. Some of the contrast filled small bowel loops are borderline caliber. There is stool within the colon, greater on the right. There are left-sided colonic diverticula. There are degenerative changes at the spine, greatest at the lower facets. Images through the pelvis show normal caliber small bowel loops. There is no appendiceal inflammation. There is a small amount of distal colonic stool. There are additional descending and sigmoid diverticula. There is no definite associated active inflammation. The uterus is surgically absent. The urinary bladder shows no abnormalities for the degree of distention. There is no ascites. There is slight skin thickening and underlying subcutaneous stranding at the right lower quadrant anteriorly. This was also present on the prior. CT/CT abdomen pelvis w con IMPRESSION:: SMALL HEPATIC CYSTS. BILATERAL RENAL CYSTS AND HYPERATTENUATING RIGHT RENAL NODULE WHICH IS SLIGHTLY LARGER. ULTRASOUND CORRELATION COULD BE CONSIDERED TO DETERMINE IF THIS IS A HEMORRHAGIC CYST OR SOLID LESION. NO BOWEL OR URINARY TRACT OBSTRUCTION. DIVERTICULOSIS. Impression dictated by: Lynsey Matthew M.D.05/14/2023 3:57 PM Dictation Location: [place] [address] Transcribed By: [facility] 05/14/23 1557 Dictated By: Lynsey Matthew MD 05/14/23 1544 Signed By: 05/14/23 1557 [facility] Outside Recordson 04-22-2023 Outside Records [id number] [facility] Alanine aminotransferase [En zymatic activity/volume] in Serum or PlasmaOrdered By: Kaleigh Segovia on 04-09-2023 ALT [Catalytic activity/Vol] 13 U/L 7-52 [facility] Albumin [Mass/volume] in Ser um or Plasma by Bromocresol green (BCG) dye binding methoOrdered By: Kaleigh Segovia on 04-09-2023 Albumin BCG dye [Mass/Vol] 3.9 g/dL 3.5-5.7 [facility] Alkaline phosphatase [Enzyma tic activity/volume] in Serum or PlasmaOrdered By: Kaleigh Segovia on 04-09-2023 ALP [Catalytic activity/Vol] 86 U/L 34-104 [facility] Aspartate aminotransferase [ Enzymatic activity/volume] in Serum or PlasmaOrdered By: Kaleigh Segovia on 04-09-2023 AST [Catalytic activity/Vol] 15 U/L 13-39 [facility] Bilirubin.total [Mass/volume ] in Serum or PlasmaOrdered By: Kaleigh Segovia on 04-09-2023 Bilirubin [Mass/Vol] 0.5 mg/dL 0.3-1.[address] [facility] Calcium [Mass/volume] in Ser um or PlasmaOrdered By: Kaleigh Segovia on 04-09-2023 Calcium [Mass/Vol] 8.5 mg/dL 8.6-10.3 [facility] Carbon dioxide, total [Moles /volume] in Serum or PlasmaOrdered By: Kaleigh Segovia on 04-09-2023 CO2 [Moles/Vol] 25.1 mmol/L 21.0-31.0 [facility] Chloride [Moles/volume] in S georgette or PlasmaOrdered By: Kaleigh Segovia on 04-09-2023 Chloride [Moles/Vol] 108 mmol/L 98-[address] [facility] Cholesterol [Mass/volume] in Serum or PlasmaOrdered By: Kaleigh Segovia on 04-09-2023 Cholesterol [Mass/Vol] 168 mg/dL 140-200 [facility] Comment on above: Chol less than 200 m g/dl low riskChol 201-239 mg/dl borderline riskChol 240 mg/dl and greater high risk Cholesterol in LDL Calc [Mas s/Vol]Ordered By: Kaleigh Segovia on 04-09-2023 Cholesterol in LDL [Mass/Vol] 65 mg/dL 0-100 [facility] Comment on above: LDL ATP III CLASSIFI CATIONLDL less than 100 mg/dL OptimalLDL 100-129 mg/dL Near or above optimalLDL 130-159 mg/dL Borderline highLDL 160-189 mg/dL HighLDL greater than 189 mg/dL Very high Cholesterol in VLDL Calc [Ma ss/Vol]Ordered By: Kaleigh Segovia on 04-09-2023 Cholesterol in VLDL [Mass/Vol] 68 mg/dL [facility] Comprehensive Metabolic Pane mary 04-09-2023 Albumin [Mass/Vol] 3.9 g/dL Normal 3.5-5.7 [facility] Comment on above: Order Comment: Reaso n for Exam Type 2 diabetes mellitus Reason for Exam Type 2 diabetes mellitus;Hyperlipidemia Performed By: #### L IPID, CMP, URMACRERAT #### [facility] [address] [place] [address] [place] Albumin/Globulin [Mass ratio] 1.4 {ratio} Normal [facility] Comment on above: Order Comment: Reaso n for Exam Type 2 diabetes mellitus Reason for Exam Type 2 diabetes mellitus;Hyperlipidemia Performed By: #### L IPID, CMP, URMACRERAT #### [facility] [address] [place] [address] [place] ALP [Catalytic activity/Vol] 86 U/L Normal 34-104 [facility] Comment on above: Order Comment: Reaso n for Exam Type 2 diabetes mellitus Reason for Exam Type 2 diabetes mellitus;Hyperlipidemia Performed By: #### L IPID, CMP, URMACRERAT #### [facility] [address] ALT [Catalytic activity/Vol] 13 U/L Normal 7-52 [facility] Comment on above: Order Comment: Reaso n for Exam Type 2 diabetes mellitus Reason for Exam Type 2 diabetes mellitus;Hyperlipidemia Performed By: #### L IPID, CMP, URMACRERAT #### [facility] [address] [place] [address] [place] Anion gap [Moles/Vol] 13.9 mmol/L Normal 6.0-15.0 [facility] Comment on above: Order Comment: Reaso n for Exam Type 2 diabetes mellitus Reason for Exam Type 2 diabetes mellitus;Hyperlipidemia Performed By: #### L IPID, CMP, URMACRERAT #### [facility] [address] [place] [address] [place] AST [Catalytic activity/Vol] 15 U/L Normal 13-39 [facility] Comment on above: Order Comment: Reaso n for Exam Type 2 diabetes mellitus Reason for Exam Type 2 diabetes mellitus;Hyperlipidemia Performed By: #### L IPID, CMP, URMACRERAT #### [facility] [address] [place] [address] [place] Bilirubin [Mass/Vol] 0.5 mg/dL Normal 0.3-1.[address] [facility] Comment on above: Order Comment: Reaso n for Exam Type 2 diabetes mellitus Reason for Exam Type 2 diabetes mellitus;Hyperlipidemia Performed By: #### L IPID, CMP, URMACRERAT #### [facility] [address] [place] [address] [place] Calcium [Mass/Vol] 8.5 mg/dL Low 8.6-10.3 [facility] Comment on above: Order Comment: Reaso n for Exam Type 2 diabetes mellitus Reason for Exam Type 2 diabetes mellitus;Hyperlipidemia Performed By: #### L IPID, CMP, URMACRERAT #### [facility] [address] [place] [address] [place] Chloride [Moles/Vol] 108 mmol/L High 98-[address] [facility] Comment on above: Order Comment: Reaso n for Exam Type 2 diabetes mellitus Reason for Exam Type 2 diabetes mellitus;Hyperlipidemia Performed By: #### L IPID, CMP, URMACRERAT #### [facility] [address] CO2 [Moles/Vol] 25.1 mmol/L Normal 21.0-31.0 [facility] Comment on above: Order Comment: Reaso n for Exam Type 2 diabetes mellitus Reason for Exam Type 2 diabetes mellitus;Hyperlipidemia Performed By: #### L IPID, CMP, URMACRERAT #### [facility] [address] Creatinine [Mass/Vol] 0.96 mg/dL Normal 0.60-1.20 [facility] Comment on above: Order Comment: Reaso n for Exam Type 2 diabetes mellitus Reason for Exam Type 2 diabetes mellitus;Hyperlipidemia Performed By: #### L IPID, CMP, URMACRERAT #### [facility] [address] [place] [address] [place] GFR/1.73 sq M.predicted MDRD (S/P/Bld) [Vol rate/Area] mL/min/{1.73_m2} Normal [facility] Comment on above: Order Comment: Reaso n for Exam Type 2 diabetes mellitus Reason for Exam Type 2 diabetes mellitus;Hyperlipidemia Performed By: #### L IPID, CMP, URMACRERAT #### [facility] [address] Globulin (S) [Mass/Vol] 2.8 g/dL Normal [facility] Comment on above: Order Comment: Reaso n for Exam Type 2 diabetes mellitus Reason for Exam Type 2 diabetes mellitus;Hyperlipidemia Performed By: #### L IPID, CMP, URMACRERAT #### [facility] [address] Glucose [Mass/Vol] 223 mg/dL High 70-100 [facility] Comment on above: Order Comment: Reaso n for Exam Type 2 diabetes mellitus Reason for Exam Type 2 diabetes mellitus;Hyperlipidemia Result Comment: [facility] Glucose Reference Range is dependent on time and content of last meal. Glucose of more than 200 mg/dL in a nonstressed, ambulatory subject supports the diagnosis of Diabetes Mellitus. ADA recommended reference range Performed By: #### L IPID, CMP, URMACRERAT #### [address] Potassium [Moles/Vol] 5.0 mmol/L Normal 3.5-5.1 [facility] Comment on above: Order Comment: Reaso n for Exam Type 2 diabetes mellitus Reason for Exam Type 2 diabetes mellitus;Hyperlipidemia Performed By: #### L IPID, CMP, URMACRERAT #### [address] Protein [Mass/Vol] 6.7 g/dL Normal 6.4-8.9 [facility] Comment on above: Order Comment: Reaso n for Exam Type 2 diabetes mellitus Reason for Exam Type 2 diabetes mellitus;Hyperlipidemia Performed By: #### L IPID, CMP, URMACRERAT #### [place] [address] [place] Sodium [Moles/Vol] 142 mmol/L Normal 136-145 [facility] Comment on above: Order Comment: Reaso n for Exam Type 2 diabetes mellitus Reason for Exam Type 2 diabetes mellitus;Hyperlipidemia Performed By: #### L IPID, CMP, URMACRERAT #### [place] [address] [place] Urea nitrogen [Mass/Vol] 23 mg/dL Normal 7-25 [facility] Comment on above: Order Comment: Reaso n for Exam Type 2 diabetes mellitus Reason for Exam Type 2 diabetes mellitus;Hyperlipidemia Performed By: #### L PENNIE DIXON, URMACRET #### [facility] [address] [place] [id number] [place] Creatinine [Mass/volume] in Serum or PlasmaOrdered By: Kaleigh Segovia on 04-09-2023 Creatinine [Mass/Vol] 0.96 mg/dL 0.60-1.20 [facility] Creatinine [Mass/volume] in UrineOrdered By: Kaleigh Segovia on 04-09-2023 Creatinine (U) [Mass/Vol] 47.0 mg/dL 11.0-20.0 [facility] Globulin Calc (S) [Mass/Vol] Ordered By: Kaleigh Segovia on 04-09-2023 Globulin (S) [Mass/Vol] 2.8 g/dL [facility] Glucose [Mass/volume] in Ser um or PlasmaOrdered By: Kaleigh Segovia on 04-09-2023 Glucose [Mass/Vol] 223 mg/dL 70-100 [facility] Comment on above: ADA recommended refe rence rangeRandom Glucose Reference Range is dependent on time and content of last meal. Glucose of more than 200 mg/dL in a nonstressed, ambulatory subject supports the diagnosis of Diabetes Mellitus. Lipid Panelon 04-09-2023 Cholesterol [Mass/Vol] 168 mg/dL Normal 140-200 [facility] Comment on above: Order Comment: Reaso n for Exam Type 2 diabetes mellitus Reason for Exam Type 2 diabetes mellitus;Hyperlipidemia Result Comment: Chol less than 200 mg/dl low risk Chol 201-239 mg/dl borderline risk Chol 240 mg/dl and greater high risk Performed By: #### L PENNIE DIXON, URMACRERAT #### [facility] [address] [place] [address] [place] Cholesterol in HDL [Mass/Vol] 35 mg/dL Normal 35-85 [facility] Comment on above: Order Comment: Reaso n for Exam Type 2 diabetes mellitus Reason for Exam Type 2 diabetes mellitus;Hyperlipidemia Result Comment: HDL CHOL ATP-III CLASSIFICATION Cardiovascular Risk HDL > or equal to 60 mg/dL LOW HDL < 40 mg/dL HIGH Performed By: #### L PENNIE DIXON, URMACRERAT #### [facility] [address] Cholesterol.total/Cholestero l in HDL [Mass ratio] 4.8 {ratio} Normal <5.0 [facility] Comment on above: Order Comment: Reaso n for Exam Type 2 diabetes mellitus Reason for Exam Type 2 diabetes mellitus;Hyperlipidemia Result Comment: PERF ORMED BY: [facility] [address] [place] [address] PATHOLOGIST COLD TYPE ARTIST MANE HARRIS M.D. Performed By: #### L PENNIE DIXON, URMACRERAT #### [facility] [address] LDL Cholesterol,Calculated 65 mg/dL Normal 0-100 [facility] Comment on above: Order Comment: Reaso n for Exam Type 2 diabetes mellitus Reason for Exam Type 2 diabetes mellitus;Hyperlipidemia Result Comment: LDL ATP III CLASSIFICATION LDL less than 100 mg/dL Optimal LDL 100-129 mg/dL Near or above optimal LDL 130-159 mg/dL Borderline high LDL 160-189 mg/dL High LDL greater than 189 mg/dL Very high Performed By: #### L PENNIE DIXON, URMACRERAT #### [facility] [address] Triglyceride w/Reflex 342 mg/dL High 0-149 [facility] Comment on above: Order Comment: Reaso n for Exam Type 2 diabetes mellitus Reason for Exam Type 2 diabetes mellitus;Hyperlipidemia Result Comment: TRIG ATP III CLASSIFICATION TRIG less than 150 mg/dL Normal TRIG 150-199 mg/dL Borderline high TRIG 200-500 mg/dL High TRIG greater than 500 mg/dL Very high Standard traceable to the Center for Disease Conrtrol and Prevention (CDC) test method. Performed By: #### L IPIDPENNIE, URMACRERAT #### [facility] [address] VLDL CHOLESTEROL 68 mg/dL Normal [facility] Comment on above: Order Comment: Reaso n for Exam Type 2 diabetes mellitus Reason for Exam Type 2 diabetes mellitus;Hyperlipidemia Performed By: #### L IPID, CMP, URMACRERAT #### [facility] [address] [place] [id number] [place] MicroAlb Creat Ratio,Uon Albumin DL <= 20 mg/L (U) [Mass/Vol] 1.4 mg/dL Normal 0.0-1.8 [facility] Comment on above: Order Comment: Reaso n for Exam Type 2 diabetes mellitus Performed By: #### L IPID, CMP, URMACRERAT #### [facility] [address] [place] [address] [place] Creatinine, Urine (Random) 47.0 mg/dL High 11.0-20.0 [facility] Comment on above: Order Comment: Reaso n for Exam Type 2 diabetes mellitus Performed By: #### L IPID, CMP, URMACRERAT #### [facility] [address] [place] [address] [place] Microalbumin/Creatinine Ratio 29.0 mg/g Normal 0.0-30 .0 [facility] Comment on above: Order Comment: Reaso n for Exam Type 2 diabetes mellitus Result Comment: 30-3 00 mg/g indicates an increased risk for diabetic nephropathy. Greater than 300 mg/g is consistent with clinical nephropathy. (Am. J. Kidney Disease 1995, 25:107) PERFORMED BY: [place] [address] PATHOLOGIST COLD TYPE ARTIST MANE HARRIS M.D. Performed By: #### L IPID, CMP, URMACRERAT #### [facility] [address] [place] [id number] [place] Microalbumin [Mass/volume] i n UrineOrdered By: Kaleigh Segovia on 04-09-2023 Albumin DL <= 20 mg/L (U) [Mass/Vol] 1.4 mg/dL 0.0-1.8 [facility] No Panel InformationOrdered By: Kaleigh Segovia on 04-09-2023 Estimated GFR (CKD-EPI) > 60.0 mL/Min [facility] Creatinine Clearanc e (Chem N/A [facility] Potassium [Moles/volume] in Serum or PlasmaOrdered By: Kaleigh Segovia on 04-09-2023 Potassium [Moles/Vol] 5.0 mmol/L 3.5-5.1 [facility] Protein [Mass/volume] in Ser um or PlasmaOrdered By: Kaleigh Segovia on 04-09-2023 Protein [Mass/Vol] 6.7 g/dL 6.4-8.9 [facility] Serum or plasma albumin/glob ulin mass ratioOrdered By: Kaleigh Segovia on 04-09-2023 Albumin/Globulin [Mass ratio] 1.4 {ratio} [facility] Serum or plasma anion gap de terminationOrdered By: Kaleigh Segovia on 04-09-2023 Anion gap [Moles/Vol] 13.9 mmol/L 6.0-15.0 [facility] Serum or plasma high density lipoprotein (HDL) cholesterol measurementOrdered By: Kaleigh Segovia on 04-09-2023 Cholesterol in HDL [Mass/Vol] 35 mg/dL 35-85 [facility] Comment on above: HDL CHOL ATP-III CLA SSIFICATION Cardiovascular RiskHDL > or equal to 60 mg/dL LOWHDL < 40 mg/dL HIGH Serum or plasma total choles terol/high density lipoprotein (HDL) cholesterol mass ratOrdered By: Kaleigh Segovia on 04-09-2023 Cholesterol.total/Cholestero l in HDL [Mass ratio] 4.8 {ratio} <5.0 [facility] Sodium [Moles/volume] in Ser um or PlasmaOrdered By: Kaleigh Segovia on 04-09-2023 Sodium [Moles/Vol] 142 mmol/L 136-145 [facility] Triglyceride [Mass/volume] i n Serum or PlasmaOrdered By: Kaleigh Segovia on 04-09-2023 Triglyceride [Mass/Vol] 342 mg/dL 0-149 [facility] Comment on above: TRIG ATP III CLASSIF ICATIONTRIG less than 150 mg/dL NormalTRIG 150-199 mg/dL Borderline highTRIG 200-500 mg/dL High TRIG greater than 500 mg/dL Very highStandard traceable to the Center for Disease Conrtrol and Prevention (CDC) test method. Urea nitrogen [Mass/volume] in Serum or PlasmaOrdered By: Kaleigh Segovia on 04-09-2023 Urea nitrogen [Mass/Vol] 23 mg/dL 06-02 [facility] Urine microalbumin/creatinin e mass ratioOrdered By: Kaleigh Segovia on 04-09-2023 Albumin/Creatinine DL <= 20 mg/L (U) [Mass ratio] 29.0 mg/g 0.0-30.0 [facility] Comment on above: 30-300 mg/g indicate s an increased risk for diabetic nephropathy. Greater than 300 mg/g is consistent with clinical nephropathy. (Am. J. Kidney Disease 1995, 25:107) Outside Recordson 02-13-2023 Outside Records [id number]#1.00OTGTIFF [facility] [place] barium enema w air contra ston 02-05-2023 FL barium enema w air contrast [facility] [place] [address] Fluoroscopy Report Signed Patient: Brown Hale MR#: [id number] 10 : 1945 Acct:[id number] Age/Sex: 77 / F ADM Date: 02/05/23 Loc: XD Room: Type: [facility] Attending Dr: Kalin Andersen DO Copies to: Kalin Andersen DO Ordering Provider: Kalin Andersen DO Date of Service: 02/05/23 FL/FL barium enema w air contrast: CHANGE IN BOWEL HAPBITS, INCOMPLETE COLOSCOPE FL barium enema w air contrast 02/05/2023 10:46 AM SIGNS AND SYMPTOMS: CHANGE IN BOWEL HAPBITS, INCOMPLETE COLOSCOPE PROTOCOL: Paradi Operator radiograph of the abdomen and pelvis with fluoroscopic and radiographic images of the abdomen and pelvis after transrectal barium paste contrast administration and air insufflation. COMPARISON: CT of the abdomen and pelvis dated 07/19/2022 FINDINGS: There is extensive colonic diverticulosis predominantly along the sigmoid and descending colon. There are normal haustral markings throughout. There is no evidence of mass, polyp, or significant luminal narrowing. Contrast reflux into a normal appendix. Cumulative Air Kerma in mGy: 157.696 mGy FL/FL barium enema w air contrast IMPRESSION: There is no evidence of mass, polyp, or significant luminal narrowing. There are several colonic diverticula most concentrated along the sigmoid and descending colon. Impression dictated by: Darian Parekh M.D.02/05/2023 2:27 PM Dictation Location: [place] [address] Transcribed By: ASHANTI 02/05/23 1427 Dictated By: Darian Parekh II, MD 02/05/23 1417 Signed By: 02/05/23 1427 [facility] Outside Recordson 01-19-2023 Outside Records [id number][facility] 01-16-2023 Outside Records [id number]#[facility] A1C HEMOGLOBINon 01-13-2023 HbA1c (Bld) [Mass fraction] 6.8 % [employer] Other Glucose - FINGER STICKon Glucose [Mass/Vol] 92 mg/dL [employer] Other HbA1c (Bld) [Mass fraction]o n 01-13-2023 A1C HEMOGLOBIN [employer] Other A1C HEMOGLOBINon 10-07-2022 HbA1c (Bld) [Mass fraction] 6.1 % [employer] Other Glucose - FINGER STICKon Glucose [Mass/Vol] 109 mg/dL [employer] Other HbA1c (Bld) [Mass fraction]o n 10-07-2022 A1C HEMOGLOBIN [employer] Other Outside Recordson 10-07-2022 Outside Records [id number]#1.[facility] ([facility])on 09-15-2022 Post Op (General Surgery) Diagnoses/Problems Paraesophageal hernia (553.3) (K44.9) Orders Paraesophageal hernia Follow-up PRN Outpatient Follow-up Status: Active Requested for: 15Sep2022 Ordered Stat;For: Paraesophageal hernia; Ordered By: Sergei Murray Performed: Due: [id number] Patient Discussion/Summary This is a 77-year-old woman with history of paraesophageal hernia repair in June who represented with concern for fluid collection around the esophagus measuring 5 cm in greatest diameter by 4 x 4 cm, with an esophagram demonstrating no leak. She is doing well, tolerating full diet, not having dyspnea or chest or abdominal discomfort. Recommendations: No acute intervention or imaging required, follow-up as needed Continue general diet Continue monitor for symptoms Follow-up with gastroenterology given recent occasional black stools If her industrial engineer would like to do a colonoscopy given these findings, we recommend a upper endoscopy at the same time, however at present moment she does not have an indication for upper endoscopy in isolation Patient seen and discussed with Dr. Trevor Chandler M.D. Department of Surgery COVID-19 Risk Consent for: Provider has reviewed the risk of christelle COVID-19 and the impact during the post-operative or post-procedure recovery process. Provider Impressions This is a 77-year-old woman with history of paraesophageal hernia repair in June who represented with concern for fluid collection around the esophagus measuring 5 cm in greatest diameter by 4 x 4 cm, with an esophagram demonstrating no leak. She is doing well, tolerating full diet, not having dyspnea or chest or abdominal discomfort. Recommendations: No acute intervention or imaging required, follow-up as needed Continue general diet Continue monitor for symptoms Follow-up with gastroenterology given recent occasional black stools If her industrial engineer would like to do a colonoscopy given these findings, we recommend a upper endoscopy at the same time, however at present moment she does not have an indication for upper endoscopy in isolation Patient seen and discussed with Dr. Trevor Chandler M.D. Department of Surgery History of Present Illness This is a 77-year-old woman with history of paraesophageal hernia repair in June who represented with concern for fluid collection around the esophagus measuring 5 cm in greatest diameter by 4 x 4 cm. She had an esophagram done at this time which demonstrated no leak. She was tolerating a full liquid diet and then has slowly been advancing her diet which she has done successfully and is doing well now tolerating full diet. She will occasionally have some general abdominal discomfort and fluctuating bowel habits. She will sometimes be constipated, and then sometimes have some black diarrhea. She does not recall her last colonoscopy, but she will follow-up with her industrial engineer. Active Problems Abnormal stress test (794.39) (R94.39) Anemia (285.9) (D64.9) Angina pectoris (413.9) (I20.9) Coronary artery aneurysm (414.11) (I25.41) Coronary vasospasm (413.1) (I20.1) Diabetes mellitus (250.00) (E11.9) Dyspnea on exertion (786.09) (R06.09) Fatigue (780.79) (R53.83) Hernia, hiatal (553.3) (K44.9) Hyperlipidemia (272.4) (E78.5) Hypertension (401.9) (I10) Nausea in adult (787.02) (R11.0) Never a smoker Overweight with body mass index (BMI) of 29 to 29.9 in adult (278.02,V85.25) (E66.3,Z68.29) Palpitations (785.1) (R00.2) Paraesophageal hernia (553.3) (K44.9) SOB (shortness of breath) (786.05) (R06.02) Surgical History History of Complete colonoscopy History of Hernia repair History of Hysterectomy History of Knee replacement History of Tonsillectomy History of Tubal ligation Family History Family history of malignant neoplasm of breast (V16.3) (Z80.3) Family history of aortic aneurysm (V17.49) (Z82.49) Family history of Heart problem Family history of Heart problem Social History Caffeine use (V49.89) (Z78.9) 1 Coke 1 bottle of tea daily Never a smoker No alcohol use No illicit drug use Allergies Zetia Updated By: Estrella Martínez; 09/15/2022 11:50:53 AM Zocor Updated By: Estrella Martínez; 09/15/2022 11:50:26 AM Current Meds Medication NameInstruction amLODIPine Besylate 5 MG Oral TabletTake 1 tablet daily Aspirin EC 81 MG Oral Tablet Delayed ReleaseTAKE 1 TABLET DAILY. Atorvastatin Calcium 20 MG Oral TabletTAKE 1 TABLET Bedtime Azelastine HCl - 0.1 % Nasal SolutionINSTILL SQUIRT PRN Citalopram Hydrobromide 20 MG Oral TabletTAKE 1 TABLET DAILY. Ergocalciferol 1.25 MG (20534 UT) Oral CapsuleTAKE 1 CAPSULE Weekly Jardiance 10 MG Oral TabletTake 1 tablet daily Levemir 100 UNIT/ML Subcutaneous Solution Levemir FlexTouch 100 UNIT/ML Subcutaneous Solution Pen-injector Lisinopril-hydroCHLOROthiazide 20-25 MG Oral TabletTAKE 1 TABLET DAILY. Meloxicam 7.5 MG Oral TabletTake 1 tablet daily Metoprolol Tartrate 25 MG (more content not included)... Normal [employer] Tobacco Screening.on Fall risk assessment b) One or more fall s in the last year [employer] Work Phone: Tobacco use status [facility] b) No M [employer] Work Phone: Office Visit (Cardiology)on 08-06-2022 Follow-up visit Diagnoses/Problems Assessed Hernia, hiatal (553.3) (K44.9) Coronary vasospasm (413.1) (I20.1) Coronary artery aneurysm (414.11) (I25.41) Hyperlipidemia (272.4) (E78.5) Hypertension (401.9) (I10) Overweight with body mass index (BMI) of 29 to 29.9 in adult (278.02,V85.25) (E66.3,Z68.29) Never a smoker Angina pectoris (413.9) (I20.9) Orders Overweight with body mass index (BMI) of 29 to 29.9 in adult Healthy Weight Tips; Status:Complete - Retrospective Authorization; Done: 06Aug2022 Some eating tips that can help you lose weight.; Status:Complete - Retrospective Authorization; Done: 06Aug2022 SocHx: Never a smoker Tobacco Use Screening; Status:Complete; Done: 06Aug2022 Tobacco Use Screening; Status:Complete; Done: 06Aug2022 Patient Instructions Please bring all medicines, vitamins, and herbal supplements with you when you come to the office. Prescriptions will not be filled unless you are compliant with your follow up appointments or have a follow up appointment scheduled as per instruction of your physician. Refills should be requested at the time of your visit. Fall Prevention Education Given Follow up as needed only Chief Complaint 77-year-old female who returns for annual visit she is doing well. She has no history of coronary disease with diagnostic catheterization performed by myself in June of last year documenting normal coronaries. She does have hiatal hernia with recent hiatal hernia repair details of which are reviewed Recommendations she can follow-up as needed with cardiology and continue routine primary care management Surgical History Problems History of Complete colonoscopy History of Hernia repair History of Hysterectomy History of Knee replacement History of Tonsillectomy History of Tubal ligation Current Meds Medication NameInstruction amLODIPine Besylate 5 MG Oral TabletTake 1 tablet daily Aspirin EC 81 MG Oral Tablet Delayed ReleaseTAKE 1 TABLET DAILY. Atorvastatin Calcium 20 MG Oral TabletTAKE 1 TABLET Bedtime Azelastine HCl - 0.1 % Nasal SolutionINSTILL SQUIRT PRN Citalopram Hydrobromide 20 MG Oral TabletTAKE 1 TABLET DAILY. Ergocalciferol 1.25 MG (12773 UT) Oral CapsuleTAKE 1 CAPSULE Weekly Jardiance 10 MG Oral TabletTake 1 tablet daily Levemir 100 UNIT/ML Subcutaneous Solution Lisinopril-hydroCHLOROthiazide 20-25 MG Oral TabletTAKE 1 TABLET DAILY. Meloxicam 7.5 MG Oral TabletTake 1 tablet daily Metoprolol Tartrate 25 MG Oral TabletTAKE 1/2 TABLET TWICE DAILY Omeprazole 40 MG Oral Capsule Delayed ReleaseTAKE 1 CAPSULE Daily Ondansetron 4 MG Oral Tablet DisintegratingTake 1 tablet, 3 times daily as needed for nausea. Oxybutynin Chloride ER 5 MG Oral Tablet Extended Release 24 HourTake 1 tablet daily Trulicity 0.75 MG/0.5ML Subcutaneous Solution Pen-injectorUSE DIRECTED Vitamin B12 100 MCG Oral TabletTake 1 tablet daily Vitamin C 100 MG Oral TabletTake 1 tablet daily Patient did not bring medication list or bottles. Updated verbally with patient Allergies Medication Zetia Recorded By: Estrella Martínez; 03/24/2022 12:30:39 PM Zocor Recorded By: Estrella Martínez; 03/24/2022 12:30:39 PM Social History Problems Caffeine use (V49.89) (Z78.9) 1 Coke 1 bottle of tea daily Never a smoker No alcohol use No illicit drug use Review of Systems Constitutional: not feeling tired. Cardiovascular: no intermittent leg claudication and as noted in HPI. Respiratory: no cough and no shortness of breath. Gastrointestinal: no change in bowel habits and no blood in stools. Integumentary: no skin rashes. Neurological: no seizures and no frequent falls. All other systems have been reviewed and are negative for complaint. Vitals Vital Signs Recorded: [id number] 08:51AM Heart Rate68, L Radial Mozdbxrk824, LUE, Sitting Doawuksib44, LUE, Sitting Height4 ft 10 in Wjcuzj480 lb BMI Ukrqvwnskr86.47 kg/m2 BSA Calculated1.57 Tobacco Useb) No PHQ-2 #1. Over the last 2 weeks have you felt down, depressed or hopeless? (If yes, answer PHQ-9 below)No PHQ-2 #2. Over the last 2 weeks have you felt little interest or pleasure in doing things? (If yes, answer PHQ-9 below)No Falls Screening (Age 18+)b) One or more falls in the last year Physical Exam Constitutional: alert and in no acute distress. Neck: neck is supple, symmetric, trachea midline, no masses and no thyromegaly . Pulmonary: no increased work of breathing or signs of respiratory distress and lungs clear to auscultation. Cardiovascular: carotid pulses 2+ bilaterally with no bruit , JVP was normal, no thrills , regular rhythm, normal S1 and S2, no murmurs , pedal pulses 2+ bilaterally and no edema . Abdomen: abdomen non-tender, no masses and no hepatomegaly . Skin: skin warm and dry, normal skin turgor . Psychiatric judgment and insight is normal and oriented to person, place and time . Signatures Electronically signed by : Garrick Schultz DO; Aug 06 2022 1:29PM EST (more content not included)... Normal Touchworks CBCon 07-24-2022 Erythrocyte distribution wid th (RBC) [Ratio] 12.4 % Normal 11.5 - 14.5 [facility] Comment on above: Performed By: #### L IPAS #### [facility] [address] [place] [address] Hematocrit (Bld) [Volume fraction] 42.7 % Normal 36.0 - 46.0 [facility] Comment on above: Performed By: #### L IPAS #### [facility] [address] [place] [address] Hemoglobin (Bld) [Mass/Vol] 14.5 g/dL Normal 12.0 - 1 6.0 [facility] Comment on above: Performed By: #### L IPAS #### [facility] [address] [place] [address] MCHC (RBC) [Mass/Vol] 34.0 g/dL Normal 32.0 - 36.0 [facility] Comment on above: Performed By: #### L IPAS #### [facility] [address] [place] [address] MCV (RBC) [Entitic vol] 91 fL Normal 80 - 100 [facility] Comment on above: Performed By: #### L IPAS #### [facility] [address] [place] [address] NUCLEATED RBC 0.0 /100 WBC Normal 0.0-0.0 [facility] Comment on above: Performed By: #### L IPAS #### [facility] [address] [place] [address] Platelets (Bld) [#/Vol] 148 10*3/uL Low 150 - 450 [facility] Comment on above: Performed By: #### L IPAS #### [facility] [address] [place] [address] RBC 4.68 x10E12/L Normal 4.00 - 5.20 [facility] Comment on above: Performed By: #### L IPAS #### [facility] [address] [place] [address] WBC (Bld) [#/Vol] 13.3 10*3/uL High 4.4 - 11.3 [facility] Comment on above: Performed By: #### L IPAS #### [facility] [address] [place] [address] COMPREHENSIVE PANELon 2021 Albumin [Mass/Vol] 3.9 g/dL Normal 3.4 - 5.0 [facility] Comment on above: Performed By: #### G SHAINA #### [facility] [address] [place] [address] ALP [Catalytic activity/Vol] 79 U/L Normal 33 - 13 6 [facility] Comment on above: Performed By: #### G SHAINA #### [facility] [address] [place] [address] ALT [Catalytic activity/Vol] 6 U/L Low 7 - 45 [facility] Comment on above: Result Comment: Toña ents treated with Sulfasalazine may generate falsely decreased results for ALT. Performed By: #### G SHAINA #### [facility] [address] [place] [address] Anion gap [Moles/Vol] 18 mmol/L Normal 10 - 20 [facility] Comment on above: Performed By: #### G SHAINA #### [facility] [address] [place] [address] AST [Catalytic activity/Vol] 16 U/L Normal 9 - 39 [facility] Comment on above: Performed By: #### G SHAINA #### [facility] [address] [place] [address] Bilirubin [Mass/Vol] 1.0 mg/dL Normal 0.0 - 1.2 [facility] Comment on above: Performed By: #### G SHAINA #### [facility] [address] [place] [address] Calcium [Mass/Vol] 9.5 mg/dL Normal 8.6 - 10.6 [facility] Comment on above: Performed By: #### G SHAINA #### [facility] [address] [place] [address] Chloride [Moles/Vol] 97 mmol/L Low 98 - 107 [facility] Comment on above: Performed By: #### G SHAINA #### [facility] [address] [place] [address] Creatinine [Mass/Vol] 0.90 mg/dL Normal 0.50 - 1.05 [facility] Comment on above: Performed By: #### G SHAINA #### [facility] [address] [place] [address] GFR/1.73 sq M.predicted among non-blacks MDRD (S/P/Bld) [Vol rate/Area] 65 mL/min/{1.73_m2} Normal >90 [facility] Comment on above: Result Comment: CALCULATIONS OF ESTIMATE D GFR ARE PERFORMED USING THE 2020 CKD-EPI STUDY REFIT EQUATION WITHOUT THE RACE VARIABLE FOR THE IDMS-TRACEABLE CREATININE METHODS. https://jasn.asnjournals.org/content/early//ASN.4451034952 Performed By: #### G SHAINA #### [facility] [address] [place] [address] Glucose [Mass/Vol] 144 mg/dL High 74 - 99 [facility] Comment on above: Performed By: #### G SHAINA #### [facility] [address] [place] [address] HCO3 (Bld) [Moles/Vol] 26 mmol/L Normal 21 - 32 [facility] Comment on above: Performed By: #### G SHAINA #### [facility] [address] [place] [address] Potassium [Moles/Vol] 3.0 mmol/L Low 3.5 - 5.3 [facility] Comment on above: Performed By: #### G SHAINA #### [place] [address] [place] [address] Protein [Mass/Vol] 7.1 g/dL Normal 6.4 - 8.2 [facility] Comment on above: Performed By: #### G SHAINA #### [facility] [address] [place] [address] Sodium [Moles/Vol] 138 mmol/L Normal 136 - 145 [facility] Comment on above: Performed By: #### G SHAINA #### [facility] [address] [place] [address] Urea nitrogen [Mass/Vol] 14 mg/dL Normal 6 - 23 [facility] Comment on above: Performed By: #### G SHAINA #### [facility] [address] [place] [address] GLUCOSE-POCTon 07-24-2022 Glucose [Mass/Vol] 116 mg/dL High 74 - 99 [facility] Comment on above: Performed By: #### G SHAINA #### [facility] [address] [place] [address] Glucose [Mass/Vol] 162 mg/dL High 74 - 99 [facility] Comment on above: Performed By: #### L IPAS #### [facility] [address] [place] [address] Daily Progress Note-Surgeryo n 07-23-2022 Daily Progress Note-Surgery Service: Surgery Subjective Data: BROWN HALE is a 76 year old Female who is Hospital Day # 3. NAEON. Esophagram negative for leak. Tolerating some liquids with decreased nausea. Denies any CP, SOB, dizziness, headaches, fevers, chills. Afebrile and hypertension improved. Objective Data: Objective Information: T PRBPMAPSpO2 [id number]/[id number]% Date/Time07/23 9: 9: 9: 9: 9: 9:21 Range(36.3C - 37C ) (66 - 103 ) (18 - 18 ) (140 - 197 )/ (71 - 100 ) (129 - 129 ) (91% - 94% ) Highest temp of 37 C was recorded at 07/22 8:41 Pain reported at 07/23 7:30: 0 = None Weights 07/22 9:18: Weight in kg (Weight (kg)) 65.3 07/22 9:18: Weight in lbs ((lbs)) 143.9 07/22:18: BMI (kg/m2) (BMI (kg/m2)) 29.099 ---- Intake and Output ----- Mn/Dy/Year TimeIntakeOutputNet Jul 23, 2022 6:00 am000 Jul 22, 2022 10:00 [id number] Jul 22, 2022 2:00 [id number] The Intake and Output Totals for the last 24 hours are: IntakeOutputNet [id number] Physical Exam by System: Constitutional: NAD, AAO, lying comfortably in bed Eyes: EOMI ENMT: MMM Head/Neck: NC/AT Respiratory/Thorax: No conversational dyspnea, on RA Cardiovascular: RRR Gastrointestinal: soft, nondistended, nontender, incisions c/d/i Genitourinary: voiding freely Musculoskeletal: MACIEL Extremities: warm and well perfused, no edema Psychological: Appropriate mood and behavior Skin: warm, no cyanosis or jaundice Medication: Medications: Continuous Medications 1. Lactated Ringers Infusion: 1000 mL IntraVenous Scheduled Medications 1. amLODIPine (NORVASC): 5 mg Oral Daily 2. Heparin SubCutaneous: 5000 unit(s) SubCutaneous Every 8 Hours 3. hydroCHLOROthiazide: 25 mg Oral Daily 4. Insulin Lispro Mild Corrective Scale: unit(s) SubCutaneous 3 Times a Day Before Meals 5. Lisinopril: 20 mg Oral Daily 6. Metoprolol Tartrate: 12.5 mg Oral 2 Times a Day 7. Pantoprazole Injectable: 40 mg IntraVenous Push Every 24 Hours 8. Pneumococcal 23-Valent (PNEUMOVAX) Vaccine: 0.5 mL IntraMuscular Once PRN Medications 1. Dextrose 50% in Water Injectable: 25 gram(s) IntraVenous Push Every 15 Minutes 2. Glucagon Injectable: 1 mg IntraMuscular Every 15 Minutes 3. Labetalol Injectable: 10 mg IntraVenous Push Every 6 Hours 4. Ondansetron Injectable: 4 mg IntraVenous Push Every 6 Hours 5. Promethazine IV Piggy Back: 25 mg IntraVenous Piggyback Every 6 Hours Assessment and Plan: Code Status: Code StatusFull Code Advance Care Planning: Advance Care Planning: I evaluated the patient and determined the patient's capacity to understand the risks, benefits and alternatives to treatment. I elicited the patient's goals for treatment and reviewed advance directives and medical orders for life sustaining treatment. The patient was given an opportunity to review a blank advance directive as appropriate. Assessment: BROWN HALE is a 76 year old Female w/ history of HTN, DM, HLD, RA, GERD and large PEH s/p laparoscopic repair 06/27. Esophagram yesterday without leak. Plan: Neuro - no pain meds needed at this time CV - cont home metop, JULIENNE/HCTZ, amlodipine Resp - IS 10x/hr and PRN FEN/GI - c/w LR 100cc/hr, replete lytes PRN, cont FLD for now, cont supplements, zofran and phenergan for nausea, cont PPI /Renal - voiding freely, strict I/Os Heme - no indication for transfusions ID - no indication for abx Endo - cont ISS, holding home DM meds Prophy - SCDs, Heparin, Incentive Spirometer Dispo - cont management on RNF today until taking adequate caloric requirements Discussed with attending, Dr. Maura Jones MD PGY5 [facility] [phone] Attestation: Note Completion: I am a: Resident/Fellow Attending AttestationI saw and evaluated the patient. I personally obtained the kirk and critical portions of the history and physical exam or was physically present for kirk and critical portions performed by the resident/fellow. I reviewed the resident/fellows documentation and discussed the patient with the resident/fellow. I agree with the resident/fellows medical decision making as documented in the note. I personally evaluated the patient [id number] Electronic Signatures: Olamide Lorenzo) (Signed 23-Jul-2022 20:21) Authored: Note Completion Co-Signer: Service, Subjective Data, Objective Data, Assessment and Plan, Note Completion Charan Jones (Resident)) (Signed 23-Jul-2022 10:55) Authored: Service, Subjective Data, Objective Data, Assessment and Plan, Note Completion Last Updated: 23-Jul-2022 20:21 by Olamide Lorenzo) [facility] Discharge Asinhmm0yr 022 Discharge Profile2 Discharge Orders: Anticipated Discharge Date: Anticipated Discharge [id number] DNAR: Code Status at Discharge: Full Code Activity: activity as tolerated. May shower. May return to school/work Instructions: May drive. if not taking narcotic pain medicine. Diet: DietFull liquid diet for now Call Provider If (Homegoing Patients): Breathing faster than normal. Breathing harder than normal or having retractions. Fever of 100.4 F (38 C) or higher. Chills. Drinking less than normal. Urinating less than normal, over 1 day. Acting very sleepy and difficult to awaken. Vomiting (throwing up) and not able to eat or drink for 12 hours. 3 or more loose, watery bowel movements in 24 hours (diarrhea). Any new concerning symptoms. Hospital Course (Home Care/Gold Form): Hospital Course: Hospital Course: include significant abnormal lab values Ms. Hale is a 76 year-old female with a history of a paraesophageal hernia repair who presented with abdominal pain and nausea after advancing her diet to a soft diet. CT imaging showed some fluid around her repair site; however, esophagram was negative for a leak. The patient was subsequently advanced slowly to a full liquid diet, nausea was controlled with around the clock zofran, and patient's symptoms improved. The patient ambulated without assistance, abdominal pain was controlled. Once the patient was tolerating her nutritional requirements she was discharged home with resumption of home care on a full liquid diet with instructions for follow-up in the outpatient surgery clinic. Home Care Orders: Face to Face Certification: Home Care Services Needed: yes Home Care Agency: Other (with phone number) Jose Alberto Krishnamurthy Provider to Follow After Discharge: Primary Surgeon Skilled Disciplines Ordered: PT, OT Face to Face Encounter Completed: yes Date of Encounter: 24-Jul-2022 Medical Necessity for Homecare (based on clinical findings): PT/OT is needed to further improve strength, endurance, and balance to increase safe mobility and independence. Homebound Status: homebound Homebound Due to:: Patient is temporarily homebound due to S/P paraesophageal hernia repair and is currently walker dependent with weakness during ambulation. Face to Face Completed and Home Care Orders Reviewed: I certify that this patient is under my care. I have reviewed the information included in the face to face and certify that the home care services ordered are medically necessary for this patient. Home Care Services: Home Care Skilled ServiceRehab (PT/OT/SP eval and treat) Rehab: [facility] Visitday after discharge Provider FINAL REVIEW of Orders: Final Review: Final Review of Medication Reconciliation and Orders Completedby PA Reviewing ProviderMILOTN Irving at 24-Jul-2022 15:21:24 Appointments: Follow-Up Appointment 01: Physician/Dept/ServiceDr. Murray / General Surgery Reason for ReferralFollow-up appointment post-discharge Call to Schedule in1 week [facility] 2100 CommentsPlease call to schedule a follow-up appointment to be seen in clinic in 1-2 weeks after discharge Electronic Signatures: Alexandra Lafleur ( (Resident)) (Signed 24-Jul-2022 15:17) Authored: Discharge Orders, Hospital Course (Home Care/Gold Form), Home Care Orders, Provider FINAL REVIEW of Orders Jennifer Sharpe (PAC) (Signed 24-Jul-2022 15:21) Authored: Discharge Orders, Home Care Orders, Provider FINAL REVIEW of Orders Charan Jones (Resident)) (Signed 23-Jul-2022 12:43) Authored: Discharge Orders, Hospital Course (Home Care/Gold Form), Provider FINAL REVIEW of Orders, Appointments, Gold Form - Court Attendant Summary Last Updated: 24-Jul-2022 15:21 by Jennifer Sharpe (PAC) [facility] GLUCOSE-POCTon 07-23-2022 Glucose [Mass/Vol] 141 mg/dL High 74 - 99 [facility] Comment on above: Performed By: #### G SHAINA #### [facility] [address] [place] [address] Glucose [Mass/Vol] 176 mg/dL High 74 - 99 [facility] Comment on above: Performed By: #### G SHAINA #### [facility] [address] [place] [address] Glucose [Mass/Vol] 119 mg/dL High 74 - 99 [facility] Comment on above: Performed By: #### G SHAINA #### [facility] [address] [place] [address] Glucose [Mass/Vol] 113 mg/dL High 74 - 99 [facility] Comment on above: Performed By: #### L IPAS #### [facility] [address] [place] [address] Order Reconciliationon 07-23 Order Reconciliation Page 1 Discharge Reconciliation Document Reconciliation Type: Discharge requested on behalf of Charan Jones (Resident) done by Charan Jones ( (Resident)) Discharge - Reconciliation: 23-Jul-2022 12:36 by: Charan Jones ( (Resident)) Home Medications EnteredHOME MEDICATIONS AT DISCHARGE DateReconciliation Comment/ Additional Information amLODIPine 5 mg oral tablet 1 tab(s) orally once a day 27-Jun-2022 10:50 amLODIPine 5 mg oral tablet 1 tab(s) orally once a day 27-Jun-2022 10:50 amLODIPine 5 mg oral tablet is continued as amLODIPine 5 mg oral tablet ascorbic acid 100 mg oral tablet 1 tab(s) orally once a day 27-Jun-2022 10:52 ascorbic acid 100 mg oral tablet 1 tab(s) orally once a day 27-Jun-2022 10:52 ascorbic acid 100 mg oral tablet is continued as ascorbic acid 100 mg oral tablet aspirin 81 mg oral tablet 1 tab(s) orally once a day 27-Jun-2022 10:54 aspirin 81 mg oral tablet 1 tab(s) orally once a day 27-Jun-2022 10:54 aspirin 81 mg oral tablet is continued as aspirin 81 mg oral tablet azelastine 137 mcg/inh (0.1%) nasal spray 1 spray(s) nasal 2 times a day 27-Jun-2022 10:35 azelastine 137 mcg/inh (0.1%) nasal spray 1 spray(s) nasal 2 times a day 27-Jun-2022 10:35 azelastine 137 mcg/inh (0.1%) nasal spray is continued as azelastine 137 mcg/inh (0.1%) nasal spray citalopram 20 mg oral tablet 1 tab(s) orally once a day 27-Jun-2022 10:36 citalopram 20 mg oral tablet 1 tab(s) orally once a day 27-Jun-2022 10:36 citalopram 20 mg oral tablet is continued as citalopram 20 mg oral tablet cyanocobalamin 100 mcg oral tablet 1 tab(s) orally once a day 27-Jun-2022 10:53 cyanocobalamin 100 mcg oral tablet 1 tab(s) orally once a day 27-Jun-2022 10:53 cyanocobalamin 100 mcg oral tablet is continued as cyanocobalamin 100 mcg oral tablet dulaglutide 0.75 mg/0.5 mL subcutaneous solution 0.75 milligram(s) subcutaneous once a day (at bedtime) (Thursday) 27-Jun-2022 10:48 dulaglutide 0.75 mg/0.5 mL subcutaneous solution 0.75 milligram(s) subcutaneous once a day (at bedtime) (Thursday) 27-Jun-2022 10:48 dulaglutide 0.75 mg/0.5 mL subcutaneous solution is continued as dulaglutide 0.75 mg/0.5 mL subcutaneous solution empagliflozin 10 mg oral tablet 1 tab(s) orally once a day (in the morning) 27-Jun-2022 10:44 empagliflozin 10 mg oral tablet 1 tab(s) orally once a day (in the morning) 27-Jun-2022 10:44 empagliflozin 10 mg oral tablet is continued as empagliflozin 10 mg oral tablet ergocalciferol 1.25 mg (50,000 intl units) oral tablet 1 tab(s) orally once a week (Thursday) 27-Jun-2022 10:39 ergocalciferol 1.25 mg (50,000 intl units) oral tablet 1 tab(s) orally once a week (Thursday) 27-Jun-2022 10:39 ergocalciferol 1.25 mg (50,000 intl units) oral tablet is continued as ergocalciferol 1.25 mg (50,000 intl units) oral tablet Front wheeled Walker 1 unit(s) once to use as needed for ambulatory assistance 30-Jun-2022 12:52 Front wheeled Walker 1 unit(s) once to use as needed for ambulatory assistance 30-Jun-2022 12:52 Front wheeled Walker is continued as Front wheeled Walker insulin detemir 100 units/mL subcutaneous solution 30 unit(s) subcutaneous once a day (at bedtime) 27-Jun-2022 10:46 insulin detemir 100 units/mL subcutaneous solution 30 unit(s) subcutaneous once a day (at bedtime) 27-Jun-2022 10:46 insulin detemir 100 units/mL subcutaneous solution is continued as insulin detemir 100 units/mL subcutaneous solution lisinopril-hydrochlorothiazide 20 mg-25 mg oral tablet 1 tab(s) orally once a day 27-Jun-2022 10:46 lisinopril-hydrochlorothiazide 20 mg-25 mg oral tablet 1 tab(s) orally once a day 27-Jun-2022 10:46 lisinopril-hydrochlorothiazide 20 mg-25 mg oral tablet is continued as lisinopril-hydrochlorothiazide 20 mg-25 mg oral tablet meloxicam 15 mg oral tablet 1 tab(s) orally once a day 27-Jun-2022 10:47 meloxicam 15 mg oral tablet 1 tab(s) orally once a day 27-Jun-2022 10:47 meloxicam 15 mg oral tablet is continued as meloxicam 15 mg oral tablet metoprolol tartrate 25 mg oral tablet 0.5 tab(s) orally 2 times a day 27-Jun-2022 10:49 metoprolol tartrate 25 mg oral tablet 0.5 tab(s) orally 2 times a day 27-Jun-2022 10:49 metoprolol tartrate 25 mg oral tablet is continued as metoprolol tartrate 25 mg oral tablet naproxen sodium 220 mg oral tablet 1 tab(s) orally every 12 hours, As Needed for pain 22-Jul-2022 13:44 naproxen sodium 220 mg oral tablet 1 tab(s) orally every 12 hours, As Needed for pain 22-Jul-2022 13:44 naproxen sodium 220 mg oral tablet is continued as naproxen sodium 220 mg oral tablet omeprazole 40 mg oral delayed release capsule 1 cap(s) orally once a day 22-Jul-2022 13:27 omeprazole 40 mg oral delayed release capsule 1 cap(s) orally once a day 22-Jul-2022 13:27 omeprazole 40 mg oral delayed release capsule is continued as omeprazole 40 mg oral delayed release capsule oxybutynin 5 mg/24 hours oral tablet, extended release 1 tab(s) orally once a day (more content not included)... [facility] UA MICROSCOPICon 07-23-2022 BACTERIA 1+ /HPF Abnormal [facility] Comment on above: Performed By: #### U AMIC #### [facility] [address] [place] [address] Mucus Ql (Urine sed) 1+ /LPF Normal [facility] Comment on above: Performed By: #### U AMIC #### [facility] [address] [place] [address] RBC 1 /HPF Normal 0-5 [facility] Comment on above: Performed By: #### U AMIC #### [facility] [address] [place] [address] SQUAMOUS EPITH. CELLS 6 /HPF Normal [facility] Comment on above: Performed By: #### U AMIC #### [facility] [address] [place] [address] WBC 2 /HPF Normal 0-5 [facility] Comment on above: Performed By: #### U AMIC #### [facility] [address] [place] [address] URINALYSISon 07-23-2022 Appearance (U) CLEAR Normal CLEAR [facility] Comment on above: Performed By: #### U A #### [facility] [address] [place] [address] Bilirubin Ql (U) Negative Normal NEGATIVE [facility] [place] Comment on above: Performed By: #### U A #### [facility] [address] [place] [address] Color (U) STRAW Normal STRAW,YELLOW [facility] Comment on above: Performed By: #### U A #### [facility] [address] [place] [address] Glucose Ql (U) 150 (2+) Abnormal NEGATIVE [facility] Comment on above: Performed By: #### U A #### [facility] [address] [place] [address] Hemoglobin Ql (U) TRACE Abnormal NEGATIVE [facility] Comment on above: Performed By: #### U A #### [facility] [address] [place] [address] Ketones Ql (U) Negative Normal NEGATIVE [facility] Comment on above: Performed By: #### U A #### [facility] [address] [place] [address] Leukocyte esterase Test stri p Ql (U) TRACE Abnormal NEGATIVE [facility] Comment on above: Performed By: #### U A #### [facility] [address] [place] [address] Nitrite Ql (U) Negative Normal NEGATIVE [facility] Comment on above: Performed By: #### U A #### [facility] [address] [place] [address] pH (U) 6.0 [pH] Normal 5.0 - 8.0 [facility] Comment on above: Performed By: #### U A #### [facility] [address] [place] [address] Protein Ql (U) Negative Normal NEGATIVE [facility] Comment on above: Performed By: #### U A #### [facility] [address] [place] [address] Specific gravity (U) [Rel density] 1.015 Normal 1.005 - 1.035 [facility] Comment on above: Performed By: #### U A #### [facility] [address] [place] [address] Urobilinogen (U) [Mass/Vol] mg/dL Normal 0.0 - 1. 9 [facility] Comment on above: Performed By: #### U A #### [facility] [address] [place] [address] URINALYSIS WITH CULTURE IF I NDICATEDon 07-23-2022 Appearance (U) Canceled Normal [facility] Comment on above: Order Comment: TEST URINALYSIS WITH CULTURE IF INDICATED WAS CANCELLED, 07/23/2022 12:05 NOSPECIMEN RECEIVED IN LAB. Performed By: #### G SHAINA #### [facility] [address] [place] [address] ASCORBIC ACID Canceled Normal [facility] Comment on above: Order Comment: TEST URINALYSIS WITH CULTURE IF INDICATED WAS CANCELLED, 07/23/2022 12:05 NOSPECIMEN RECEIVED IN LAB. Result Comment: Conc entrations > = 20 mg/dL of ascorbic acid can be expected to cause strong interference in the reactions testing for glucose, nitrite and blood. It is recommended to discontinue Vitamin C administration and retest in 10 hours. Performed By: #### G SHAINA #### [facility] [address] [place] [address] Bilirubin Ql (U) Canceled Normal [facility] [place] Comment on above: Order Comment: TEST URINALYSIS WITH CULTURE IF INDICATED WAS CANCELLED, 07/23/2022 12:05 NOSPECIMEN RECEIVED IN LAB. Performed By: #### G SHAINA #### [facility] [address] [place] [address] Color (U) Canceled Normal [facility] Comment on above: Order Comment: TEST URINALYSIS WITH CULTURE IF INDICATED WAS CANCELLED, 07/23/2022 12:05 NOSPECIMEN RECEIVED IN LAB. Performed By: #### G SHAINA #### [facility] [address] [place] [address] Glucose Ql (U) Canceled Normal [facility] Comment on above: Order Comment: TEST URINALYSIS WITH CULTURE IF INDICATED WAS CANCELLED, 07/23/2022 12:05 NOSPECIMEN RECEIVED IN LAB. Performed By: #### G SHAINA #### [facility] [address] [place] [address] Hemoglobin Ql (U) Canceled Normal [facility] Comment on above: Order Comment: TEST URINALYSIS WITH CULTURE IF INDICATED WAS CANCELLED, 07/23/2022 12:05 NOSPECIMEN RECEIVED IN LAB. Performed By: #### G SHAINA #### [facility] [address] [place] [address] Ketones Ql (U) Canceled Normal [facility] Comment on above: Order Comment: TEST URINALYSIS WITH CULTURE IF INDICATED WAS CANCELLED, 07/23/2022 12:05 NOSPECIMEN RECEIVED IN LAB. Performed By: #### G SHAINA #### [facility] [address] [place] [address] Leukocyte esterase Test strip Ql (U) Canceled Normal [facility] Comment on above: Order Comment: TEST URINALYSIS WITH CULTURE IF INDICATED WAS CANCELLED, 07/23/2022 12:05 NOSPECIMEN RECEIVED IN LAB. Performed By: #### G SHAINA #### [facility] [address] [place] [address] Nitrite Ql (U) Canceled Normal [facility] Comment on above: Order Comment: TEST URINALYSIS WITH CULTURE IF INDICATED WAS CANCELLED, 07/23/2022 12:05 NOSPECIMEN RECEIVED IN LAB. Performed By: #### G SHAINA #### [facility] [address] [place] [address] [facility] Comment on above: Order Comment: TEST URINALYSIS WITH CULTURE IF INDICATED WAS CANCELLED, 07/23/2022 12:05 NOSPECIMEN RECEIVED IN LAB. Performed By: #### G SHAINA #### [facility] [address] [place] [address] Protein Ql (U) Canceled Normal [facility] Comment on above: Order Comment: TEST URINALYSIS WITH CULTURE IF INDICATED WAS CANCELLED, 07/23/2022 12:05 NOSPECIMEN RECEIVED IN LAB. Performed By: #### G SHAINA #### [facility] [address] [place] [address] Specific gravity (U) [Rel density] Canceled Normal [facility] Comment on above: Order Comment: TEST URINALYSIS WITH CULTURE IF INDICATED WAS CANCELLED, 07/23/2022 12:05 NOSPECIMEN RECEIVED IN LAB. Performed By: #### G SHAINA #### [facility] [address] [place] [address] UROBILINOGEN Canceled Normal [facility] Comment on above: Order Comment: TEST URINALYSIS WITH CULTURE IF INDICATED WAS CANCELLED, 07/23/2022 12:05 NOSPECIMEN RECEIVED IN LAB. Performed By: #### G SHAINA #### [facility] [address] [place] [address] Admission Risk Screen - Adul ton 07-22-2022 Admission Risk Screen - Adult Allergies: Allergies: Zetia: Other Zocor: Other Patient Verification: New W ID Band Applied in my Departmentno Type of ID Patient is WearingW wristband, but not applied here Patient Transferred from Other Facility ([facility], [facility],etc)no Patient Identity Verified Bypatient; family Family Memberdaughter ID Band FULL Name, include Middle, spelling matches patient's ID used for verificationyes ID Band Matches Patient ID used for Verficationyes ID Band MRN Matches EMR MRNyes Visitor Restriction: Coronavirus Visitor Restriction: Reasonable restrictions to in-person visitors will be observed due to current coronavirus pandemic. Travel History: COVID-19 Screening Completedno exposure or symptoms Travel or Exposure Past 30 DaysNO travel to International locations in the past 30 days Ebola AlertFor Ebola-like Symptoms: Isolate Patient and Notify Provider/Electrical Superintendent For Contact: Notify Provider/Electrical Superintendent Advance Directive: Advance Directive/DNRno (1) Advance Directive Information Giveninformation requested from Social Work [place] Fall Screen: History of falling (immediate or previous)no (0) Secondary Diagnosisyes (15) Intravenous Therapy/ Heparin/Saline Lockyes (20) Gait/Transferringweak (10) Ambulatory Aidsnone/bedrest/nurse assist (0) Mental Statusoriented to own ability (0) Score: Low risk (<25). Moderate risk (25-44). High risk (>44).45 [place] InterventionsHIGH INTERVENTIONS *Low and Moderate Interventions Plus: * supervised toileting at all times Family Violence Screen: Are you or have you been threatened or abused physically, emotionally, or sexually by anyoneno Do you feel UNSAFE going back to the place where you are livingno Clinical assessment: Are there any apparent signs of injuries/behaviors that could be related to abuse/neglectno Social Service Consult for abuse/neglect needed this visitno Functional Screen: Functional Screen: In the recent/past 2-4 weeks, patient or family have noticedno issues that require a speech/language consult at this time AM-PAC- Basic Mobility/Daily Activity: Patient baseline bedboundno Learning Assessment (Patient): Patient is Able to be Assessed for Learningyes Factors Influencing Readiness to Learnfatigue; nausea Factors that Impact Ability to Learnnone Devices/Methods Used to Communicatenone Learning Preferencesverbal instruction Cultural Considerationsnone Developmental Considerationsnone Episcopal Considerationsnone Learning Assessment (Other Learner): Other learner availableno Depression Screen: During the past month, have you often been bothered by feeling down, depressed or hopelessno During the past month, have you often had little interest or pleasure in doing thingsno Have you had any thoughts of harming anyone elseno (2) [place] Suicide: Risk Screen Not Applicable/Able to Answerable to be screened In the Past Month: Have you wished you were or could go to sleep and not wake upno(2) In the Past Month: Have you had any actual thoughts of killing yourself no(2) Lifetime: Have you ever done, started to do, or prepared to do anything to end your lifeno [place] Suicide Risknegative Adult Nutrition Screen: Have you recently lost weight without tryingno Have you been eating poorly because of a decreased appetiteno Malnutrition Screening Tool Score0 Malnutrition Screening Tool RiskMST = 0 or 1 Not at risk. Eating well with little or no weight loss Nutrition Consult needed this visitno Can Patient Participate in Room Serviceyes Patient requires Paper Dishes/Plastic Utensilsno Pain Screen: Pain Scalenumerical 0-10 Pain Scale Educationteaching provided Current Pain Level3 = Mild Acceptable Pain Level0 = None Expression of Pain (nonverbal)none Chronic Painno Spiritual Screen: Are there any cultural, spiritual, church practices/values/needs that are important for us to knowno CAGE: Is this an injured patient at a Trauma Center ([facility]/[place]): no (1) Vaccinations: Vaccination - Influenza Vaccination Screen: Is it flu season (between and February 06)Yes Screening for identified contraindications to influenza vaccinationno contraindications identified Influenza vaccine indicatedyes Vaccination - Pneumonia Vaccination Screen: Patient has received a previous pneumonia vaccine:no/unknown... Pneumonia vaccine NOT indicated due to:No contraindications to vaccine Pneumonia vaccine indicatedyes Niall: Skin - Niall Scale: Niall: Sensory Perception (response to environment)(4) no impairment Niall: Moisture (degree skin exposed to moisture)(4) rarely moist Niall: Activity (ability to walk)(3) walks occasionally Niall: Mobility (amount/control of body movement)(3) slightly limited Nilal: Nutrition (quality of food intake)(2) probably inadequate (more content not included)... Normal [facility] BD CT ABDOMEN AND PELVIS W I V CONTRASTon 07-22-2022 CT ABDOMEN AND PELVIS W IV CONTRAST Patient Name: BROWN HALE STUDY: CT ABDOMEN AND PELVIS W IV CONTRAST; 07/22/2022 3:31 am INDICATION: recent 06/27 hiatal hernia repair, now with constipation worsening abd pain and dry heaves, Lie Flat: Yes . COMPARISON: Chest CT dated 09/17/2021 ACCESSION NUMBER(S): [id number] ORDERING CLINICIAN: BINU PATTEN TECHNIQUE: CT of the abdomen and pelvis was performed. Standard contiguous axial images were obtained at 3 mm slice thickness through the abdomen and pelvis. Coronal and sagittal reconstructions at 3 mm slice thickness were performed. 90 ml of contrast Omnipaque 350 were administered intravenously without immediate complication. FINDINGS: LOWER CHEST: There is mild bibasilar atelectasis. No focal consolidation, pleural effusion, or pneumothorax. Heart is not enlarged. No pericardial effusion. There is a rim enhancing and partially loculated fluid collection surrounding the distal esophagus measuring 4.8 x 4.3 x 4.3 cm (in AP x TRV x CC dimensions, series 201, image 14 and series 202, image 80). There is a nondependent fat-fluid level within this collection. There appears to be a focal stenosis of the distal esophagus just proximal to the gastroesophageal junction best seen on sagittal series 203, image 91. When compared to the prior examination dated 09/17/2021 there has been interval repair of the large hiatal hernia. ABDOMEN: LIVER: Liver is normal in size. There is a 1.0 cm hypodense lesion of hepatic segment 7 (series 201, image 18) likely representing a cyst. There are several other subcentimeter hypodense lesions which are too small to be characterize and favored to represent cysts. Area of focal fatty infiltration along gallbladder fossa noted. BILE DUCTS: No significant abnormality. GALLBLADDER: Focal area of low-density wall thickening of the gallbladder fundus is most consistent with adenomyomatosis. There is no inflammatory wall thickening or gallbladder dilatation. PANCREAS: No significant abnormality. SPLEEN: Mildly atrophic, otherwise no significant abnormality. An accessory splenule is noted. ADRENAL GLANDS: No significant abnormality. KIDNEYS AND URETERS: The kidneys are mildly atrophic. Peripelvic renal cysts appears stable when compared to the prior examination dated 09/17/2021. There is a hyperdense lesion of the right midpole measuring 1.7 cm (series 201, image 44) unchanged from 09/17/2021. No hydroureteronephrosis or nephroureterolithiasis. PELVIS: BLADDER: No significant abnormality. REPRODUCTIVE ORGANS: Uterus is surgically absent. BOWEL: The stomach is unremarkable. The small bowel is not abnormally dilated. The large bowel demonstrates multiple diverticula without inflammation. The appendix appears normal. VESSELS: There is no aneurysmal dilatation of the abdominal aorta. The IVC appears normal. Mild to moderate atherosclerotic calcification of the abdominal aorta and its branching vessels. PERITONEUM/RETROPERITONEUM/LYMPH NODES: There is mild inflammatory fat stranding in the gastrohepatic ligament. No ascites or free air, no fluid collection. No abdominopelvic lymphadenopathy is present. BONES AND ABDOMINAL WALL: Diffuse osteopenia is noted. No suspicious osseous lesions are identified. Degenerative discogenic disease is noted in the lower thoracic and lumbar spine. Skin thickening of the right lower quadrant likely representing injection site granulomas. IMPRESSION: 1. Postsurgical changes of a hiatal hernia repair with a large loculated rim enhancing fluid collections surrounding the distal esophagus lungs posterior and lateral aspects measuring up to 4.8 cm x 4.3 cm x 4.3 cm and demonstrates a nondependent fat-fluid level. Differential diagnosis includes esophageal leak, thoracic duct injury, infected postoperative collection. After exclusion of esophageal leak with esophagram, recommend further clinical investigation for the other possibilities. 2. Unchanged size of incompletely characterize hypodense lesion in the right kidney measuring 1.7 cm representing a proteinaceous hemorrhage cyst or solid mass. Nonemergent follow-up with renal mass protocol MRI is recommended. 3. Colonic diverticulosis. I personally reviewed the images/study and I agree with the findings as stated. Electronically signed by: PROSPER FOLEY MD Normal [facility] CBCon 07-22-2022 Erythrocyte distribution wid th (RBC) [Ratio] 12.8 % Normal 11.5 - 14.5 [facility] Comment on above: Performed By: #### G SHAINA #### [facility] [address] [place] [address] Hematocrit (Bld) [Volume fraction] 45.5 % Normal 36.0 - 46.0 [facility] Comment on above: Performed By: #### G SHAINA #### [facility] [address] [place] [address] Hemoglobin (Bld) [Mass/Vol] 15.4 g/dL Normal 12.0 - 1 6.0 [facility] Comment on above: Performed By: #### G SHAINA #### [facility] [address] [place] [address] MCHC (RBC) [Mass/Vol] 33.8 g/dL Normal 32.0 - 36.0 [facility] Comment on above: Performed By: #### G SHAINA #### [facility] [address] [place] [address] MCV (RBC) [Entitic vol] 93 fL Normal 80 - 100 [facility] Comment on above: Performed By: #### G SHAINA #### [facility] [address] [place] [address] NUCLEATED RBC 0.0 /100 WBC Normal 0.0-0.0 [facility] Comment on above: Performed By: #### G SHAINA #### [facility] [address] [place] [address] Platelets (Bld) [#/Vol] 230 10*3/uL Normal 150 - 450 [facility] Comment on above: Performed By: #### G SHAINA #### [facility] [address] [place] [address] RBC 4.87 x10E12/L Normal 4.00 - 5.20 [facility] Comment on above: Performed By: #### G SHAINA #### [facility] [address] [place] [address] WBC (Bld) [#/Vol] 10.8 10*3/uL Normal 4.4 - 11.3 [facility] Comment on above: Performed By: #### G SHAIAN #### [facility] [address] [place] [address] [facility] Comment on above: Order Comment: TEST CBC WAS CANCELLED, 07/22/2022 08:16 Performed By: #### G SHAINA #### [facility] [address] [place] [address] [facility] Comment on above: Order Comment: TEST CBC WAS CANCELLED, 07/22/2022 08:16 Performed By: #### G SHAINA #### [facility] [address] [place] [address] [facility] Comment on above: Order Comment: TEST CBC WAS CANCELLED, 07/22/2022 08:16 Performed By: #### G SHAINA #### [facility] [address] [place] [address] [facility] Comment on above: Order Comment: TEST CBC WAS CANCELLED, 07/22/2022 08:16 Performed By: #### G SHAINA #### [facility] [address] [place] [address] NUCLEATED RBC Canceled Normal [facility] Comment on above: Order Comment: TEST CBC WAS CANCELLED, 07/22/2022 08:16 Performed By: #### G SHAINA #### [facility] [address] [place] [address] [facility] Comment on above: Order Comment: TEST CBC WAS CANCELLED, 07/22/2022 08:16 Performed By: #### G SHAINA #### [facility] [address] [place] [address] [facility] Comment on above: Order Comment: TEST CBC WAS CANCELLED, 07/22/2022 08:16 Performed By: #### G SHAINA #### [facility] [address] [place] [address] RDW-CV Canceled Normal [facility] Comment on above: Order Comment: TEST CBC WAS CANCELLED, 07/22/2022 08:16 Performed By: #### G SHAINA #### [facility] [address] [place] [address] [facility] Comment on above: Order Comment: TEST CBC WAS CANCELLED, 07/22/2022 08:16 Performed By: #### G SHAINA #### [facility] [address] [place] [address] CBC AND DIFFERENTIALon 07-22 % AUTOMATED IMMATURE GRAN 0.3 % Normal 0.0 - 0.9 [facility] Comment on above: Result Comment: Heidy ture Granulocyte Count (IG) includes promyelocytes, myelocytes and metamyelocytes but does not include bands. Percent differential counts (%) should be interpreted in the context of the absolute cell counts (cells/L). Performed By: #### L IPAS #### [facility] [address] [place] [address] Basophils (Bld) [#/Vol] 0.07 10*3/uL Normal 0.00 - 0.1 0 [facility] Comment on above: Performed By: #### L IPAS #### [facility] [address] [place] [address] Basophils/100 WBC (Bld) 0.7 % Normal 0.0 - 2.0 [facility] Comment on above: Performed By: #### L IPAS #### [facility] [address] [place] [address] Eosinophils (Bld) [#/Vol] 0.04 10*3/uL Normal 0.00 - 0 .40 [facility] Comment on above: Performed By: #### L IPAS #### [facility] [address] [place] [address] Eosinophils/100 WBC (Bld) 0.4 % Normal 0.0 - 6.0 [facility] Comment on above: Performed By: #### L IPAS #### [facility] [address] [place] [address] Lymphocytes (Bld) [#/Vol] 2.06 10*3/uL Normal 0.80 - 3 .00 [facility] Comment on above: Performed By: #### L IPAS #### [facility] [address] [place] [address] Lymphocytes/100 WBC (Bld) 19.8 % Normal 13.0 - 44. 0 [facility] Comment on above: Performed By: #### L IPAS #### [facility] [address] [place] [address] Monocytes (Bld) [#/Vol] 0.80 10*3/uL Normal 0.05 - 0.8 0 [facility] Comment on above: Performed By: #### L IPAS #### [facility] [address] [place] [address] Monocytes/100 WBC (Bld) 7.7 % Normal 2.0 - 10.0 [facility] Comment on above: Performed By: #### L IPAS #### [facility] [address] [place] [address] Neutrophils (Bld) [#/Vol] 7.42 10*3/uL High 1.60 - 5 .50 [facility] Comment on above: Performed By: #### L IPAS #### [facility] [address] [place] [address] Neutrophils/100 WBC (Bld) 71.1 % Normal 40.0 - 80. 0 [facility] Comment on above: Performed By: #### L IPAS #### [facility] [address] [place] [address] Platelets (Bld) [#/Vol] 293 10*3/uL Normal 150 - 450 [facility] Comment on above: Performed By: #### L IPAS #### [facility] [address] [place] [address] EMR ADDONon 07-22-2022 ADDON CONFIRMATION REQUEST REC'D Normal [facility] Comment on above: Performed By: #### G SHAINA #### [facility] [address] [place] [address] Electrocardiogram 12 Leadon 07-22-2022 Electrocardiogram 12 Lead Ventricular Ra te 79 Atrial Rate 79 P-R Interval 166 QRS Duration 74 Q-T Interval 404 QTC Calculation(Bazett) 463 P Sherwood 61 R Sherwood -1 T Sherwood 22 QRS Count 13 Q Onset 224 P Onset 141 P Offset 203 T Offset 426 QTC Fredericia 443 Diagnosis Class Abnormal Diagnosis Normal sinus rhythm Anteroseptal infarct , age undetermined Cannot rule out Inferior infarct Low voltage in limb leads Abnormal ECG No previous ECGs available Confirmed by Yovani Isbell ([id number]) on 08/08/2022 8:31:19 AM Normal [facility] GI ESOPHAGRAMon 07-22-2022 GI ESOPHAGRAM Patient Name: BROWN HALE STUDY: GI ESOPHAGRAM; 07/22/2022 11:57 am INDICATION: Esophageal Leak . COMPARISON: None. ACCESSION NUMBER(S): [id number] ORDERING CLINICIAN: DAKOTA FELICIANO TECHNIQUE: Initial food technologist radiograph of the esophagus was obtained. Multiple fluoroscopic spot images were obtained after the administration of 60 mL of gastrografin contrast. The patient tolerated the procedure well. Fluoroscopic time was 0.4 minutes. FINDINGS: Initial food technologist image demonstrates nonobstructive bowel gas. Cardiomediastinal silhouette within limits. No focal consolidation or sizable pneumothorax. No acute osseous abnormality.. Fluoroscopic images demonstrate normal peristalsis with free flow of gastrografin through the pharynx and esophagus without evidence of obstruction or stricture. There is no evidence of extraluminal contrast suggestive of leak. No intraluminal mass lesions or hiatal hernia is appreciated. There is no evidence of extrinsic compression of the esophagus or pharynx. The gastroesophageal junction is unremarkable without evidence of gastroesophageal reflux. IMPRESSION: 1. Unremarkable fluoroscopic examination of the esophagus without evidence of leak or obstruction. I personally reviewed the images/study and I agree with the findings as stated. This study was interpreted at [facility], [place], [place]. Electronically signed by: NOAH WERNER MD Normal [facility] GLUCOSE-POCTon 07-22-2022 Glucose [Mass/Vol] 141 mg/dL High 74 - 99 [facility] Comment on above: Performed By: #### G SHAINA #### [facility] [address] [place] [address] LIPASEon 07-22-2022 Lipase [Catalytic activity/Vol] 25 U/L Normal 9 - 82 [facility] Comment on above: Result Comment: Pari puncture immediately after or during the administration of Metamizole may lead to falsely low results. Testing should be performed immediately prior to Metamizole dosing. K-zhwpfn-a-benzoquinone imine (metabolite of Acetaminophen) will generate erroneously low results in samples for patients that have taken toxic doses of acetaminophen. Performed By: #### L IPAS #### [facility] [address] [place] [address] MAGNESIUMon 07-22-2022 Magnesium [Mass/Vol] 1.60 mg/dL Normal 1.60 - 2.40 [facility] Comment on above: Performed By: #### G SHAINA #### [facility] [address] [place] [address] Order Reconciliationon 07-22 Order Reconciliation Page 1 Admission Reconciliation Document Reconciliation Type: ED to Observation requested on behalf of Charan Jones (Resident) done by Charan Jones ( (Resident)) ED to Observation - Reconciliation: 22-Jul-2022 07:47 by: Dakota Feliciano ( (Resident)) ED to Observation - AutoLinked: 22-Jul-2022 08:20 by: Silvestre Rivers (ADMIN) ED to Observation - Reset to Incomplete: 22-Jul-2022 13:42 by: Charan Jones ( (Resident)) ED to Observation - Reconciliation: 22-Jul-2022 13:43 by: Charan Jones ( (Resident)) Home MedicationsEnteredLast Dose TakenReconciled with current Order Reconciliation Comment/ Additional Information acetaminophen 325 mg oral tablet 2 tab(s) orally every 4 hours, As Needed 22-Jul-2022 NoLongerTaking Reviewed and Held amLODIPine 5 mg oral tablet 1 tab(s) orally once a [id number] amLODIPine (NORVASC) TabletDOSE = 5 mg Oral DailyamLODIPine 5 mg oral tablet continued as the inpatient order amLODIPine (NORVASC) ascorbic acid 100 mg oral tablet 1 tab(s) orally once a [id number] Reviewed and Held aspirin 81 mg oral tablet 1 tab(s) orally once a [id number] Reviewed and Held atorvastatin 10 mg oral tablet 1 tab(s) orally once a day 22-Jul-2022 NoLongerTaking Reviewed and Held azelastine 137 mcg/inh (0.1%) nasal spray 1 spray(s) nasal 2 times a day 22-Jul-2022 Reviewed and Held citalopram 20 mg oral tablet 1 tab(s) orally once a [id number] Reviewed and Held conjugated estrogens 0.625 mg/g vaginal cream with applicator 1 application vaginal 2 times a week, As Needed 22-Jul-2022 NoLongerTaking Reviewed and Held cyanocobalamin 100 mcg oral tablet 1 tab(s) orally once a [id number] Reviewed and Held dulaglutide 0.75 mg/0.5 mL subcutaneous solution 0.75 milligram(s) subcutaneous once a day (at bedtime) (Thursday)22-Jul-2022 Reviewed and Held empagliflozin 10 mg oral tablet 1 tab(s) orally once a day (in the morning) 22-Jul-2022 Reviewed and Held ergocalciferol 1.25 mg (50,000 intl units) oral tablet 1 tab(s) orally once a week (Thursday)22-Jul-2022 Reviewed and Held Front wheeled Walker 1 unit(s) once to use as needed for ambulatory assistance 22-Jul-2022 Reviewed and Held hydrOXYzine hydrochloride 25 mg oral tablet 1 tab(s) orally once a day (at bedtime) 22-Jul-2022 NoLongerTaking Reviewed and Held insulin detemir 100 units/mL subcutaneous solution 30 unit(s) subcutaneous once a day (at bedtime)22-Jul-2022 Reviewed and Held lisinopril-hydrochlorothiazide 20 mg-25 mg oral tablet 1 tab(s) orally once a [id number] Lisinopril Tablet (PRINIVIL, ZESTRIL)DOSE = 20 mg Oral Dailylisinopril-hydrochlorothiazide 20 mg-25 mg oral tablet continued as the inpatient order Lisinopril; lisinopril-hydrochlorothiazide 20 mg-25 mg oral tablet continued as the inpatient order hydroCHLOROthiazide lisinopril-hydrochlorothiazide 20 mg-25 mg oral tablet 1 tab(s) orally once a [id number] hydroCHLOROthiazide Tablet (ESIDRIX)DOSE = 25 mg Oral DailyNotes from Pharmacy: Substitution for Hydrochlorothiazide Component of ZESTORETIC 20 - 25 Tab Once Dailylisinopril-hydrochlorothiazide 20 mg-25 mg oral tablet continued as the inpatient order Lisinopril; lisinopril-hydrochlorothiazide 20 mg-25 mg oral tablet continued as the inpatient order hydroCHLOROthiazide meloxicam 15 mg oral tablet 1 tab(s) orally once a [id number] Reviewed and Held metoprolol tartrate 25 mg oral tablet 0.5 tab(s) orally 2 times a day 22-Jul-2022 Metoprolol Tartrate TabletDOSE = 12.5 mg Oral 2 Times a Day metoprolol tartrate 25 mg oral tablet continued as the inpatient order Metoprolol Tartrate omeprazole 20 mg oral delayed release tablet 1 tab(s) orally once a day 22-Jul-2022 Discontinued; Copy / Discontinue Reviewed and Held omeprazole 40 mg oral delayed release capsule 1 cap(s) orally once a day 22-Jul-2022 Reviewed and Held oxybutynin 5 mg/24 hours oral tablet, extended release 1 tab(s) orally once a [id number] Reviewed and Held oxyCODONE 5 mg oral tablet 1 tab(s) orally every 6 hours, As Needed -Pain - Mod (4-6) 22-Jul-2022 Reviewed and Held Additional Current Orders Fluconazole 100 mg IVPB /Premixed NaCL 0.9% 50 mL (DIFLUCAN)DOSE = 100 mg Every 24 HoursRecommended Infusion Time: 60 minute(s)Notes from Pharmacy: Reproductive Risk- Single Nitrile Glove Heparin SubCutaneous DOSE = 5,000 unit(s) SubCutaneous Every 8 HoursNotes from Pharmacy: Note Concentration Prior to Administration Heparin SubCutaneous DOSE = 5,000 unit(s) SubCutaneous Every 8 HoursNotes from Pharmacy: Note Concentration Prior to Administration Influenza Virus (Inactive) HIGH DOSE Adult Vaccine (FLUZONE HIGH DOSE)DOSE = 0.7 mL IntraMuscular OnceClinician Notes: :: Must be given prior to discharge. Order entered from Admission Screen. Labetalol Injectable (TRANDATE)DOSE = 10 mg IntraVenous Push Every 6 Hours, PRN for SBP>180. Hold for HR<60 Lactated (more content not included)... Normal [facility] Patient Profile - Adult v2on 07-22-2022 Patient Profile - Adult v2 Profile: Initial Info: How to be AddressedKay(1) Spoken Language PreferredEnglish (1) Stated Reason for Admissionanastamosis leak Wants Family/Rep Notified of Admissionyes, primary contact Notify PCPnotify PCP Informed of Patient Visiting Rightsyes Arrived Fromemergency department Patient Belongingsremains with patient Medications Brought to Hospitalno General Health: Blood Avoidance/Restrictionsnone(1) Previous Transfusion Reactionno(1) Weight in kg65.3 kilogram(s)(2) Weight in iwt539.9 pound(s) Weight Methodactual (measured) Scale Typestanding Height in cm149.8 centimeter(s)(2) Height in feet4 feet Height in slzytk74.98 inch(es) Height Methodstated BMI (kg/m2)29.099 square meter RSP Based Care: How would you like to participate in your carekeep me informed of all procedures What is the number one concern for you during this hospitalizationgetting this nausea under control What is the most important thing we can do to support you during this hospitalizationtake care of me Is there anything we need to know to best care for younot at this time Substance: Smoking Statusnever smoker (3) Health Mgmt: Symptoms/Conditions Managed at Homenone Barriers to Managing Healthnone Relationship/Environ: Resource/Environmental Concernsnone Primary Source of Support/Comfortchild(eulalia) Lives Withalone Living Arrangementshouse Services Anticipated at Transitionnone Anticipated Transition Tohome Significant IndicatorsComplete Information Review: Allergies, Home Meds and Significant Events have been Reviewed and Verified with Patient/Familyyes ALLERGY, INTOLERANCE, ADVERSE EVENT: Allergies: Zetia: Drug, Other, Active Zocor: Drug, Other, Active Electronic Signatures: Agnes Martinez (BHARAT) (Signed 22-Jul-2022 09:22) Authored: Initial Info, General Health, RSP Based Care, Substance, Health Mgmt, Relationship/Environ, Additional Information Last Updated: 22-Jul-2022 09:22 by Agnes Martinez (BHARAT) References: 1. Data Referenced From Patient Profile - Preop v3 27-Jun-2022 07:29 2. Data Referenced From 1. Vital Signs 21-Jul-2022 19:56 3. Data Referenced From History and Physical 22-Jul-2022 06:34 Normal [facility] Provider Note - ED v3on 09-1 Provider Note - ED v3 Provider Note: Chart Review: ED NOTES ED NOTES: HISTORY OF PRESENT ILLNESS: 76-year-old female presenting to the ED for abdominal pain and dry heaving. Patient had a paraesophageal hernia repair on 06/27. She has followed up with her surgeon in the postop setting and has an appointment scheduled for follow-up in the next month. However over the past 3 days she has developed abdominal pain in the left upper abdomen as well as dry heaves. No actual vomiting however she has been unable to tolerate p.o. due to severe nausea. She denies chest pain, shortness of breath, fevers. She was evaluated in an OSH ED 2 days ago and had a negative COVID and C. difficile test after endorsing diarrhea. Her symptoms have worsened and she was unable to contact her surgeon therefore came to the ED for evaluation. Past Medical History: Hypertension, hyperlipidemia, diabetes, GERD, rheumatoid arthritis, anxiety Past Surgical History: Knee replacement, tonsillectomy, tubal ligation, hysterectomy Family History: reviewed and non-contributory Social History: denies tobacco, alcohol or drug use Allergies: reviewed REVIEW OF SYSTEMS: negative except for those in bold Constitutional: fever, chills Eyes: vision changes ENT: sore throat, rhinorrhea Cardiovascular: chest pain, palpitations Pulmonary: shortness of breath, cough GI: abdominal pain, nausea, vomiting, diarrhea : dysuria MSK: new joint pain, new muscle pain Skin: rash Neurological: headache, lightheadedness PHYSICAL EXAM: Vitals: triage vital signs reviewed General: nontoxic adult in no acute distress but appears uncomfortable Head: normocephalic, atraumatic Eyes: EOMI, no scleral icterus ENT: dry mucus membranes Neck: supple, trachea midline Cardiovascular: regular rhythm, normal rate. No murmurs. Equal pulses bilaterally. Pulmonary: lungs clear to auscultation. No wheezes, rales or rhonchi. No accessory muscle use. GI: abdomen soft, tender LUQ and epigastrium without guarding or rebound, non-distended, normal bowel sounds MSK: no pedal edema Skin: warm and dry Neurological: alert, oriented x3, no focal deficits MEDICAL DECISION MAKIN-year-old female presenting to the ED for abdominal pain and dry heaves in the setting of paraesophageal hernia repair on 06/27. Patient was given IV fluids and treated with morphine and Zofran. Labs and imaging were obtained. H/H appears hemoconcentrated and she has a new ASMIA likely in the setting of dehydration from decreased p.o. intake. Lipase and LFTs are normal. CT abdomen pelvis shows postsurgical hernia repair changes with a large loculated rim-enhancing fluid collection surrounding the distal esophagus concerning for esophageal leak versus postoperative collection versus thoracic duct injury. Case discussed with [facility] who evaluated the patient in the ED. They will admit the patient to their service for further evaluation and esophagram. Binu Patten DO Emergency Medicine PGY3 HISTORY OF PRESENTING ILLNESS BROWN is a 77 year old Female and was seen by me at 22-Jul-2022 01:50. Triage Information: Most recent Vital Sign Value Date Temp (F): 98.4 07-21-2022 19:56 Temp (C): 36.9 07-21-2022 19:56 Heart Rate (beats/min): 89 07-21-2022 19:56 Respirations (breaths/min): 16 07-21-2022 19:56 SpO2 (%): 96 07-21-2022 19:56 BP Systolic (mm Hg): 180 07-21-2022 19:56 BP Diastolic (mm Hg): 102 07-21-2022 19:56 PAST MEDICAL HISTORY ALLERGIES/INTOLERANCES: Allergy Allergen: Zetia Type: Drug Reaction: Other Allergen: Zocor Type: Drug Reaction: Other HEALTH HISTORY: No documented data. OUTPATIENT MEDICATIONS: Home Medications Review Status for Reconciliation: Complete Med Status: Patient Currently Takes Medications Drug Name: azelastine 137 mcg/inh (0.1%) nasal spray Instructions: 1 spray(s) nasal 2 times a day Drug Name: citalopram 20 mg oral tablet Instructions: 1 tab(s) orally once a day Drug Name: ergocalciferol 1.25 mg (50,000 intl units) oral tablet Instructions: 1 tab(s) orally once a week (Thursday) Drug Name: empagliflozin 10 mg oral tablet Instructions: 1 tab(s) orally once a day (in the morning) Drug Name: insulin detemir 100 units/mL subcutaneous solution Instructions: 30 unit(s) subcutaneous once a day (at bedtime) Drug Name: lisinopril-hydrochlorothiazide 20 mg-25 mg oral tablet Instructions: 1 tab(s) orally once a day Drug Name: meloxicam 15 mg oral tablet Instructions: 1 tab(s) orally once a day Drug Name: oxybutynin 5 mg/24 hours oral tablet, extended release Instructions: 1 tab(s) orally once a day Drug Name: dulaglutide 0.75 mg/0.5 mL subcutaneous solution Instructions: 0.75 milligram(s) subcutaneous once a day (at bedtime) (Thursday) Drug Name: metoprolol tartrate 25 mg oral tablet Instructions: 0.5 tab(s) orally 2 times a day Drug Name: amLODIPine 5 mg oral tablet Instructions (more content not included)... Normal [facility] RENAL FUNCTION PANELon 07-22 Albumin [Mass/Vol] 4.0 g/dL Normal 3.4 - 5.0 [facility] Comment on above: Performed By: #### G SHAINA #### [facility] [address] [place] [address] Anion gap [Moles/Vol] 17 mmol/L Normal 10 - 20 [facility] Comment on above: Performed By: #### G SHAINA #### [facility] [facility] [address] [place] [address] Calcium [Mass/Vol] 9.6 mg/dL Normal 8.6 - 10.6 [facility] Comment on above: Performed By: #### G SHAINA #### [facility] [address] [place] [address] Chloride [Moles/Vol] 99 mmol/L Normal 98 - 107 [facility] Comment on above: Performed By: #### G SHAINA #### [facility] [address] [place] [address] Creatinine [Mass/Vol] 1.30 mg/dL High 0.50 - 1.05 [facility] Comment on above: Performed By: #### G SHAINA #### [facility] [address] [place] [address] GFR/1.73 sq M.predicted among non-blacks MDRD (S/P/Bld) [Vol rate/Area] 42 mL/min/{1.73_m2} Abnormal >90 [facility] Comment on above: Result Comment: CALCULATIONS OF ESTIMATE D GFR ARE PERFORMED USING THE 2020 CKD-EPI STUDY REFIT EQUATION WITHOUT THE RACE VARIABLE FOR THE IDMS-TRACEABLE CREATININE METHODS. https://jasn.asnjournals.org/content/early/ASN.3808873049 Performed By: #### G SHAINA #### [facility] [address] [place] [address] Glucose [Mass/Vol] 125 mg/dL High 74 - 99 [facility] Comment on above: Performed By: #### G SHAINA #### [facility] [address] [place] [address] HCO3 (Bld) [Moles/Vol] 26 mmol/L Normal 21 - 32 [facility] Comment on above: Performed By: #### G SHAINA #### [facility] [address] [place] [address] Phosphate [Mass/Vol] 3.4 mg/dL Normal 2.5 - 4.9 [facility] Comment on above: Result Comment: The performance characteristics of phosphorus testing in heparinized plasma have been validated by the individual laboratory site where testing is performed. Testing on heparinized plasma is not approved by the FDA; however, such approval is not necessary. Performed By: #### G SHAINA #### [facility] [address] [place] [address] Potassium [Moles/Vol] 3.5 mmol/L Normal 3.5 - 5.3 [facility] Comment on above: Performed By: #### G SHAINA #### [facility] [address] [place] [address] Sodium [Moles/Vol] 138 mmol/L Normal 136 - 145 [facility] Comment on above: Performed By: #### G SHAINA #### [facility] [address] [place] [address] Urea nitrogen [Mass/Vol] 36 mg/dL High 6 - 23 [facility] Comment on above: Performed By: #### G SHAINA #### [facility] [address] [place] [address] Risk Screen - Adult Emergenc yon 07-22-2022 Risk Screen - Adult Emergency Preferred Language: Preferred Language: Preferred Language for Discussing Health Care (patient/designee)Kazakh Advanced Directives: Advance Directive/DNRno Family Violence Adult: Abuse Screen: Are you or have you been threatened or abused physically, emotionally, or sexually by anyoneno Learning Assessment (Patient): Learning Assessment (Patient): Patient is Able to be Assessed for Learningyes Factors Influencing Readiness to Learnacuteness of illness Factors that Impact Ability to Learnacuteness of illness Devices/Methods Used to Communicatenone Learning Preferenceswritten material Cultural Considerationsnone Developmental Considerationsnone Episcopal Considerationsnone Learning Assessment (Other Learner): Learning Assessment (Other Learner): Other learner availableno Pressure Injury/TB/Substance: Pressure Injury: Do you have a coughno Smoking Statusnever smoker Admission Risk Screen: Significant IndicatorsComplete CAGE: CAGE: Is this an injured patient at a Trauma Center ([facility]/[place]): no Electronic Signatures: Dang Jasso (BHARAT) (Signed 22-Jul-2022 02:28) Authored: Preferred Language, Advanced Directives, Family Violence Adult, Learning Assessment (Patient), Learning Assessment (Other Learner), Pressure Injury/TB/Substance, Pressure Injury, CAGE Last Updated: 22-Jul-2022 02:28 by Dang Jasso (BHARAT) Normal [facility] CBC AND DIFFERENTIALon 07-21 Erythrocyte distribution wid th (RBC) [Ratio] 12.8 % Normal 11.5 - 14.5 [facility] Comment on above: Performed By: #### L IPAS #### [facility] [address] [place] [address] Hematocrit (Bld) [Volume fraction] 47.4 % High 36.0 - 46.0 [facility] Comment on above: Performed By: #### L IPAS #### [facility] [address] [place] [address] Hemoglobin (Bld) [Mass/Vol] 16.6 g/dL High 12.0 - 1 6.0 [facility] Comment on above: Performed By: #### L IPAS #### [facility] [address] [place] [address] MCHC (RBC) [Mass/Vol] 35.0 g/dL Normal 32.0 - 36.0 [facility] Comment on above: Performed By: #### L IPAS #### [facility] [address] [place] [address] MCV (RBC) [Entitic vol] 88 fL Normal 80 - 100 [facility] Comment on above: Performed By: #### L IPAS #### [facility] [address] [place] [address] NUCLEATED RBC 0.0 /100 WBC Normal 0.0-0.0 [facility] Comment on above: Performed By: #### L IPAS #### [facility] [address] [place] [address] RBC 5.37 x10E12/L High 4.00 - 5.20 [facility] Comment on above: Performed By: #### L IPAS #### [facility] [address] [place] [address] WBC (Bld) [#/Vol] 10.4 10*3/uL Normal 4.4 - 11.3 [facility] Comment on above: Performed By: #### L IPAS #### [facility] [address] [place] [address] COMPREHENSIVE PANELon 2021 Albumin [Mass/Vol] 4.5 g/dL Normal 3.4 - 5.0 [facility] Comment on above: Performed By: #### L IPAS #### [facility] [address] [place] [address] ALP [Catalytic activity/Vol] 94 U/L Normal 33 - 13 6 [facility] Comment on above: Performed By: #### L IPAS #### [facility] [address] [place] [address] ALT [Catalytic activity/Vol] 10 U/L Normal 7 - 45 [facility] Comment on above: Result Comment: Toña ents treated with Sulfasalazine may generate falsely decreased results for ALT. Performed By: #### L IPAS #### [facility] [address] [place] [address] Anion gap [Moles/Vol] 23 mmol/L High 10 - 20 [facility] Comment on above: Performed By: #### L IPAS #### [facility] [address] [place] [address] AST [Catalytic activity/Vol] 17 U/L Normal 9 - 39 [facility] Comment on above: Performed By: #### L IPAS #### [facility] [address] [place] [address] Bilirubin [Mass/Vol] 0.9 mg/dL Normal 0.0 - 1.2 [facility] Comment on above: Performed By: #### L IPAS #### [facility] [address] [place] [address] Calcium [Mass/Vol] 10.4 mg/dL Normal 8.6 - 10.6 [facility] Comment on above: Performed By: #### L IPAS #### [facility] [address] [place] [address] Chloride [Moles/Vol] 97 mmol/L Low 98 - 107 [facility] Comment on above: Performed By: #### L IPAS #### [facility] [address] [place] [address] Creatinine [Mass/Vol] 1.67 mg/dL High 0.50 - 1.05 [facility] Comment on above: Performed By: #### L IPAS #### [facility] [address] [place] [address] GFR/1.73 sq M.predicted among non-blacks MDRD (S/P/Bld) [Vol rate/Area] 31 mL/min/{1.73_m2} Abnormal >90 [facility] Comment on above: Result Comment: CALCULATIONS OF ESTIMATE D GFR ARE PERFORMED USING THE 2020 CKD-EPI STUDY REFIT EQUATION WITHOUT THE RACE VARIABLE FOR THE IDMS-TRACEABLE CREATININE METHODS. https://jasn.asnjournals.org/content//ASN.1905010802 Performed By: #### L IPAS #### [facility] [address] [place] [address] Glucose [Mass/Vol] 151 mg/dL High 74 - 99 [facility] Comment on above: Performed By: #### L IPAS #### [facility] [address] [place] [address] HCO3 (Bld) [Moles/Vol] 21 mmol/L Normal 21 - 32 [facility] Comment on above: Performed By: #### L IPAS #### [facility] [address] [place] [address] Potassium [Moles/Vol] 3.6 mmol/L Normal 3.5 - 5.3 [facility] Comment on above: Performed By: #### L IPAS #### [facility] [address] [place] [address] Protein [Mass/Vol] 7.9 g/dL Normal 6.4 - 8.2 [facility] Comment on above: Performed By: #### L IPAS #### [facility] [address] [place] [address] Sodium [Moles/Vol] 137 mmol/L Normal 136 - 145 [facility] Comment on above: Performed By: #### L IPAS #### [facility] [address] [place] [address] Urea nitrogen [Mass/Vol] 37 mg/dL High 6 - 23 [facility] Comment on above: Performed By: #### L IPAS #### [facility] [address] [place] [address] Triage - EDon 07-21-2022 Triage - ED Chart Review: ARRIVAL INFORMATION Mode of Arrival: private vehicle CHIEF COMPLAINT BROWN HALE is a Female patient with a chief complaint of vomiting. Onset of the Complaint: 17-Jul-2022 Other Complaints: pt states hiatal hernia repair on 06/27. pt c/o dry heaving/D x4 days. Triage Date/Time: 21-Jul-2022 19:56 MALACHI: 3 Vital Signs: Temperature: 98.4F ( 36.9C) taken skin probe Blood Pressure: 180/102 Mean: Heart Rate: 89 Respiratory Rate: 16 Pulse Oximetry: 96% on room air, no respiratory support. Height: 4 feet 11.00 inches. 149.8 CM Weight: 143.9 pounds. Calculated 65.3 kg. (stated) Calculated BMI (kg/m2): 29.099 Calculated BSA (m2) 1.65 Vishnu Coma Scale: Best Eye Response: (E4) spontaneous Best Motor Response: (M6) obeys commands Best Verbal Response: (V5) oriented Vishnu Score: 15 Cough lasting greater than 3 weeks: no Allergies: yes Mask applied: yes Patient has homicidal thoughts: no Last Known Well: known Time Last Known Well Date/Time: 21-Jul-2022 19:59 Risk Screens Suicide Risk Screen In the Past Month: Have you wished you were or wished you could go to sleep and not wake up no In the Past Month: Have you had any actual thoughts of killing yourself no In Your Lifetime: Have you ever done anything, started to do anything, or prepared to do anything to end your life no Mcghee Fall Scale Screening Has the patient fallen before (or is the patient in the ED as a result of a fall) has not had a fall Does the patient have an impaired gait does not have impaired gait Is the patient cognitively impaired not cognitively impaired Interventions: Mcghee Fall Interventions: LOW INTERVENTIONS: *patient oriented to surroundings and call system, * patient/family falls education completed and documented, *patients fall status communicated during bedside handoff, *whiteboard updated, *mode of toileting discussed with patient, *bed in low position with brakes locked, *call light in reach, * non-skid footwear TRAVEL HISTORY Travel History Coronavirus Screening: no exposure or symptoms Travel Exposure History: NO travel to International locations in the past 30 days PAIN Pain Scale Used: JIM Past Medical History: Past Medical History Reviewedyes AJIT, Right knee replacement,: Past Surgical History, Active DM: Past Medical History, Active HTN, RA, GERD: Past Medical History, Active Electronic Signatures: Ruma Werner (BHARAT) (Signed 21-Jul-2022 20:03) Authored: Quick Triage, Risk Screens, Pain, Travel History, Chart Review, Scores, Past Medical History Last Updated: 21-Jul-2022 20:03 by Ruma Werner) Normal [facility] Albumin [Mass/volume] in Ser um or PlasmaOrdered By: Porfirio Isaacs on 07-19-2022 Albumin [Mass/Vol] 4.0 g/dL 3.2-5.5 [facility] Automated erythrocytes count in urine sediment (number/area)Ordered By: Porfirio Isaacs on 07-19-2022 RBC Auto (Urine sed) [#/Area] None seen [HPF] 0 -4 [facility] Automated leukocytes count i n urine sediment (number/area)Ordered By: Porfirio Isaacs on 07-19-2022 WBC Auto (Urine sed) [#/Area] 5-9 [HPF] 0-4 [facility] Basophils Auto (Bld) [#/Vol] Ordered By: Porfirio Isaacs on 07-19-2022 Basophils (Bld) [#/Vol] 0.1 10*3/uL 0.0-0.2 [facility] Basophils/100 WBC Auto (Bld) Ordered By: Porfirio Isaacs on 07-19-2022 Basophils/100 WBC (Bld) 1.2 % . [facility] Bilirubin Test strip Ql (U)O rdered By: Porfirio Isaacs on 07-19-2022 Bilirubin Ql (U) Negative Negative [facility] Blood hemoglobin measurement (mass/volume)Ordered By: Porfirio Isaacs on 07-19-2022 Hemoglobin (Bld) [Mass/Vol] 15.4 g/dL 11.8-15. 4 [facility] Blood leukocytes automated c ount (number/volume)Ordered By: Porfirio Isaacs on 07-19-2022 WBC (Bld) [#/Vol] 9.4 10*3/uL 4.5-11.0 [facility] Color Auto (U)Ordered By: Taye Isaacs on 07-19-2022 Color (U) Yellow Yellow [facility] Creatinine and Glomerular fi ltration rate.predicted panel (S/P/Bld)Ordered By: Porfirio Isaacs on 07-19-2022 Creatinine [Mass/Vol] 1.06 mg/dL 0.44-1.03 [facility] Eosinophils Auto (Bld) [#/Vo l]Ordered By: Porfirio Isaacs on 07-19-2022 Eosinophils (Bld) [#/Vol] 0.1 10*3/uL 0.0-0.45 [facility] Eosinophils/100 WBC Auto (Bl d)Ordered By: Porfirio Isaacs on 07-19-2022 Eosinophils/100 WBC (Bld) 1.5 % . [facility] Erythrocyte distribution wid th Auto (RBC) [Ratio]Ordered By: Porfirio Isaacs on 07-19-2022 Erythrocyte distribution wid th (RBC) [Ratio] 13.8 % 11.9-15.3 [facility] Estimated glomerular filtrat ion rate (GFR) non- AmericanOrdered By: Porfirio Isaacs on 07-19-2022 GFR/1.73 sq M.predicted elbert g non-blacks MDRD (S/P/Bld) [Vol rate/Area] 50 mL/Min [facility] Globulin Calc (S) [Mass/Vol] Ordered By: Porfirio Isaacs on 07-19-2022 Globulin (S) [Mass/Vol] 3.6 g/dL [facility] Hematocrit Auto (Bld) [Volum e fraction]Ordered By: Porfirio Isaacs on 07-19-2022 Hematocrit (Bld) [Volume fraction] 46.0 % 3 4.0-46.4 [facility] Ketones Auto test strip (U) [Mass/Vol]Ordered By: Porfirio Isaacs on 07-19-2022 Ketones (U) [Mass/Vol] 1+ Negative [facility] and C hemistry - challengeOrdered By: Porfirio Isaacs on 07-19-2022 Lipase [Catalytic activity/Vol] 25.0 U/L 22-5 1 [facility] Laboratory - Hematology and Cell countsOrdered By: Porfirio Isaacs on 07-19-2022 Nucleated RBC/100 WBC (Bld) [Ratio] 0.0 % 0-0.5 [facility] Laboratory - UrinalysisOrder ed By: Porfirio Isaacs on 07-19-2022 Hyaline casts LM Ql (Urine sed) 0-8 [LPF] 0-8 [facility] Lymphocytes Auto (Bld) [#/Vo l]Ordered By: Porfirio Isaacs on 07-19-2022 Lymphocytes (Bld) [#/Vol] 2.2 10*3/uL 1.00-4.8 [facility] Lymphocytes/100 WBC Auto (Bl d)Ordered By: Porfirio Isaacs on 07-19-2022 Lymphocytes/100 WBC (Bld) 23.1 % . [facility] MCH Auto (RBC) [Entitic mass ]Ordered By: Porfirio Isaacs on 07-19-2022 MCH (RBC) [Entitic mass] 30.7 pg 24.7-34.3 [facility] MCHC Auto (RBC) [Mass/Vol]Or dered By: Porfirio Isaacs on 07-19-2022 MCHC (RBC) [Mass/Vol] 33.5 g/dL 32.0-35.0 [facility] MCV Auto (RBC) [Entitic vol] Ordered By: Porfirio Isaacs on 07-19-2022 MCV (RBC) [Entitic vol] 91.7 fL 80-100 [facility] Monocytes Auto (Bld) [#/Vol] Ordered By: Porfirio Isaacs on 07-19-2022 Monocytes (Bld) [#/Vol] 0.7 10*3/uL 0.0-0.8 [facility] Monocytes/100 WBC Auto (Bld) Ordered By: Porfirio Isaacs on 07-19-2022 Monocytes/100 WBC (Bld) 7.1 % . [facility] Neutrophils Auto (Bld) [#/Vo l]Ordered By: Porfirio Isaacs on 07-19-2022 Neutrophils (Bld) [#/Vol] 6.3 10*3/uL 1.8-7.7 [facility] Neutrophils/100 WBC Auto (Bl d)Ordered By: Porfirio Isaacs on 07-19-2022 Neutrophils/100 WBC (Bld) 67.1 % . [facility] Nitrite Test strip Ql (U)Ord ered By: Porfirio Isaacs on 07-19-2022 Nitrite Ql (U) Negative Negative [facility] No Panel InformationOrdered By: Porfirio Isaacs on 07-19-2022 Estimated GFR () > 60 mL/Min [facility] Comment on above: GFR estimated refere nce range: According to KDOQI guidelines, <60 ml/min/1.73m2 is sufficient to diagnose a patient with chronic kidney disease. Pharmacy Creatinine Clearance (Chem 36.80 [facility] Platelet mean volume Auto (B ld) [Entitic vol]Ordered By: Porfirio Isaacs on 07-19-2022 Platelet mean volume (Bld) [Entitic vol] 9.8 fL 6.3-10.7 [facility] Platelets Auto (Bld) [#/Vol] Ordered By: Porfirio Isaacs on 07-19-2022 Platelets (Bld) [#/Vol] 284 10*3/uL 150-450 [facility] Protein Auto test strip (U) [Mass/Vol]Ordered By: Porfirio Isaacs on 07-19-2022 Protein (U) [Mass/Vol] Negative Negative [facility] Protein [Mass/volume] in Ser um or PlasmaOrdered By: Porfirio Isaacs on 07-19-2022 Protein [Mass/Vol] 7.6 g/dL 6.1-7.9 [facility] RBC Auto (Bld) [#/Vol]Ordere d By: Porfirio Isaacs on 07-19-2022 RBC (Bld) [#/Vol] 5.02 10*6/uL 3.60-5.00 [facility] Serum or plasma alanine arias otransferase measurement without P-5'-P (enzymatic activiOrdered By: Porfirio Isaacs on 07-19-2022 ALT No additional P-5'-P [Ca talytic activity/Vol] 16 U/L 10-60 [facility] Serum or plasma albumin/glob ulin mass ratioOrdered By: Porfirio Isaacs on 07-19-2022 Albumin/Globulin [Mass ratio] 1.1 {ratio} [facility] Serum or plasma alkaline barb sphatase measurement (enzymatic activity/volume)Ordered By: Porfirio Isaacs on 07-19-2022 ALP [Catalytic activity/Vol] 87 U/L 32-92 [facility] Serum or plasma anion gap de terminationOrdered By: Porfirio Isaacs on 07-19-2022 Anion gap [Moles/Vol] 20.3 mmol/L 6.0-15.0 [facility] Serum or plasma aspartate am inotransferase measurement (enzymatic activity/volume)Ordered By: Porfirio Isaacs on 07-19-2022 AST [Catalytic activity/Vol] 27 U/L 10-42 [facility] Serum or plasma calcium august urement (mass/volume)Ordered By: Porfirio Isaacs on 07-19-2022 Calcium [Mass/Vol] 10.0 mg/dL 8.2-10.2 [facility] Serum or plasma chloride davidson surement (moles/volume)Ordered By: Porfirio Isaacs on 07-19-2022 Chloride [Moles/Vol] 101 mmol/L 95-[address] [facility] Serum or plasma glucose august urement (mass/volume)Ordered By: Porfirio Isaacs on 07-19-2022 Glucose [Mass/Vol] 159 mg/dL 70-100 [facility] Comment on above: ADA recommended refe rence range Random Glucose Reference Range is dependent on time and content of last meal. Glucose of more than 200 mg/dL in a nonstressed, ambulatory subject supports the diagnosis of Diabetes Mellitus. Serum or plasma potassium me asurement (moles/volume)Ordered By: Porfirio Isaacs on 07-19-2022 Potassium [Moles/Vol] 3.7 mmol/L 3.5-5.1 [facility] Serum or plasma sodium measu rement (moles/volume)Ordered By: Porfirio Isaacs on 07-19-2022 Sodium [Moles/Vol] 139 mmol/L 136-146 [facility] Serum or plasma total biliru bin measurement (mass/volume)Ordered By: Porfirio Isaacs on 07-19-2022 Bilirubin [Mass/Vol] 1.1 mg/dL 0.3-1.[address] [facility] Serum or plasma total carbon dioxide measurement (moles/volume)Ordered By: Porfirio Isaacs on 07-19-2022 CO2 [Moles/Vol] 21.4 mmol/L 22.0-30.0 [facility] Serum or plasma urea nitroge n measurement (mass/volume)Ordered By: Porfirio Isaacs on 07-19-2022 Urea nitrogen [Mass/Vol] 22 mg/dL 08-01 [facility] Specific gravity Auto test s trip (U) [Rel density]Ordered By: Porfirio Isaacs on 07-19-2022 Specific gravity (U) [Rel density] 1.022 1.001-1.030 [facility] Squamous epithelial cells de tection in urine sediment by light microscopyOrdered By: Porfirio Isaacs on 07-19-2022 Epithelial cells.squamous LM Ql (Urine sed) 3-4 [HPF] 0-2 [facility] Urine bacteria detection by automated methodOrdered By: Porfirio Isaacs on 07-19-2022 Bacteria Auto Ql (U) None seen None Seen [facility] Urine clarity by refractomet ry automatedOrdered By: Porfirio Isaacs on 07-19-2022 Clarity Refractometry automated (U) Clear Clear [facility] Urine glucose measurement by automated test strip (mass/volume)Ordered By: Porfirio Isaacs on 07-19-2022 Glucose Auto test strip (U) [Mass/Vol] >=1000 mg/dL Normal [facility] Urine hemoglobin detection b y automated test stripOrdered By: Porfirio Isaacs on 07-19-2022 Hemoglobin Auto test strip Ql (U) Negative Ne gative [facility] Urine leukocyte esterase det ection by automated test stripOrdered By: Porfirio Isaacs on 07-19-2022 Leukocyte esterase Auto test strip Ql (U) 2+ Negative [facility] Urobilinogen Auto test strip (U) [Mass/Vol]Ordered By: Porfirio Isaacs on 07-19-2022 Urobilinogen (U) [Mass/Vol] Normal mg/dL Normal [facility] pH Auto test strip (U)Ordere d By: Porfirio Isaacs on 07-19-2022 pH (U) 6.5 [pH] 5.0-9.0 [facility] Post Op (General Surgery)on 07-17-2022 Post Op (General Surgery) Diagnoses/Problems Paraesophageal hernia (553.3) (K44.9) Orders Paraesophageal hernia Follow-up visit in 1 month Outpatient Follow-up Status: Hold For - Scheduling Requested for: 17Jul2022 Ordered Stat;For: Paraesophageal hernia; Ordered By: Sergei Murray Performed: Due: [id number] Patient Discussion/Summary Brown Hale is a 76 year old female with history of HTN, DM, HLD, RA, GERD and anxiety who presents today for a post operative visit after a paraesophageal hernia repair on 06/27. Patient has since weaned off homegoing oxygen. Patient has had some abdominal discomfort since Friday 07/13 that is relieved with her antacid medication and tylenol. Patient endorses that she is able to tolerate a diet and was advised about advancing her diet as tolerated. Also discussed the benefits of supplementing with protein shakes such as ensure to ensure adeqaute calorie intake. Plan: Follow up visit in one month. Provider Impressions Brown Hale is a 76 year old female with history of HTN, DM, HLD, RA, GERD and anxiety who presents today for a post operative visit after a paraesophageal hernia repair on 06/27. Patient has since weaned off homegoing oxygen. Patient has had some abdominal discomfort since Friday 07/13 that is relieved with her antacid medication and tylenol. Patient endorses that she is able to tolerate a diet and was advised about advancing her diet as tolerated. Also discussed the benefits of supplementing with protein shakes such as ensure to ensure adeqaute calorie intake. Plan: Follow up visit in one month. Chief Complaint POV History of Present IllnessBrown Hale is a 76 year old female with history of HTN, DM, HLD, RA, GERD and anxiety who presents today for a post operative visit after a paraesophageal hernia repair on 06/27. Patient did well post operatively but required homegoing oxygen. Was discharged and has since weaned off of the oxygen. Patient today endorsing that since Thursday she has been having some persistent abdominal pain in the LLQ and LUQ. Endorses that she has not been able to eat quite as much as she once was capable of but that amounts are consistent with pre surgery intake. She is able to tolerate both liquids and soft diet as of now. She denies any nausea, vomiting, chest pain, shortness of breath, fevers, chills. She had some diarrhea initially after surgery which has since improved. Review of Systems 12 point review of systems was conducted and all other systems negative except for what is in HPI. Active Problems Abnormal stress test (794.39) (R94.39) Anemia (285.9) (D64.9) Angina pectoris (413.9) (I20.9) BMI 29.0-29.9,adult (V85.25) (Z68.29) Coronary vasospasm (413.1) (I20.1) Diabetes mellitus (250.00) (E11.9) Dyspnea on exertion (786.09) (R06.09) Fatigue (780.79) (R53.83) Hernia, hiatal (553.3) (K44.9) Hyperlipidemia (272.4) (E78.5) Hypertension (401.9) (I10) Overweight (278.02) (E66.3) Palpitations (785.1) (R00.2) Paraesophageal hernia (553.3) (K44.9) SOB (shortness of breath) (786.05) (R06.02) Surgical History History of Complete colonoscopy History of Hernia repair History of Hysterectomy History of Knee replacement History of Tonsillectomy History of Tubal ligation Family History Family history of malignant neoplasm of breast (V16.3) (Z80.3) Family history of aortic aneurysm (V17.49) (Z82.49) Family history of Heart problem Family history of Heart problem Social History Caffeine use (V49.89) (Z78.9) Never a smoker No alcohol use No illicit drug use Allergies Zetia Recorded By: Estrella Martínez; 03/24/2022 12:30:39 PM Zocor Recorded By: Estrella Martínez; 03/24/2022 12:30:39 PM Current Meds Medication NameInstruction Atorvastatin Calcium 20 MG Oral Tablet Azelastine HCl - 0.1 % Nasal Solution Citalopram Hydrobromide 20 MG Oral Tablet Detrol LA 4 MG Oral Capsule Extended Release 24 Hour Ergocalciferol 1.25 MG (69312 UT) Oral Capsule Escitalopram Oxalate 10 MG Oral Tablet hydrOXYzine HCl - 25 MG Oral Tablet Jardiance 10 MG Oral Tablet Levemir 100 UNIT/ML Subcutaneous Solution Lisinopril-hydroCHLOROthiazide 20-25 MG Oral Tablet Meloxicam 7.5 MG Oral Tablet Metoprolol Tartrate 25 MG Oral TabletTAKE 1/2 TABLET TWICE DAILY Oxybutynin Chloride ER 5 MG Oral Tablet Extended Release 24 Hour Trulicity 0.75 MG/0.5ML Subcutaneous Solution Pen-injectorUSE DIRECTED Vitals Vital Signs Recorded: 17Jul2022 12:29PM Bqlntqwmora46.7 F Heart Rate63 Lilckmkx174 Ddpetkyoh41 Height4 ft 10 in Uhwaqv694 lb BMI Uyjjwukgdd01.72 kg/m2 BSA Calculated1.6 Tobacco Useb) No Falls Screening (Age 18+)a) No falls within the last year Pain Scale6 Physical Exam Physical Exam: Constitutional: no acute distress, alert and oriented Skin: Warm and dry, no lesions, no rashes HEENT: EOMI, no scleral icterus, NCAT CV: regular rate and rhythm on peripheral palpation Pulm: nonlabored breathing on room air with symmetric chest ris (more content not included)... Normal [facility] (General Surgery) No report was sent Normal [facility] Tobacco Screening.on 022 Fall risk assessment a) No falls within the last year TZ-Bhgrrcp-Zigck 130 Work Phone: Tobacco use status CPHS b) No M C-Jfujrzg-Torle 130 Work Phone: Clinical Event Note-pulse ox imetry studyon 07-01-2022 Clinical Event Note-pulse oximetry study Clinical Event: Clinical Event Note: Topicpulse oximetry study Details room air laying 90% sitting 89% standing 89 % walking 86% 2 liters oxygen via nasal cannula sitting 94% on 2 L o2 standing 93% on 2 L o2 walking 93% on 2 L o2 Electronic Signatures: Mahin Brandon (BHARAT) (Signed 01-Jul-2022 14:07) Authored: Clinical Event Note Last Updated: 01-Jul-2022 14:07 by Mahin Brandon (RN) Normal [facility] GLUCOSE-POCTon 07-01-2022 Glucose [Mass/Vol] 90 mg/dL Normal 74 - 99 [facility] Comment on above: Performed By: #### G SHAINA #### [facility] [address] [place] [address] Glucose [Mass/Vol] 66 mg/dL Low 74 - 99 MG-Stephon rivka-Carmen 130 Work Phone: Comment on above: Performed By: #### G SHAINA #### [facility] [address] [place] [address] Glucose [Mass/Vol] 72 mg/dL Low 74 - 99 [facility] Comment on above: Performed By: #### G SHAINA #### [facility] [address] [place] [address] Glucose [Mass/Vol] 150 mg/dL High 74 - 99 [facility] Comment on above: Performed By: #### L IPAS #### [facility] [address] [place] [address] Glucose [Mass/Vol] 70 mg/dL Low 74 - 99 [facility] Comment on above: Performed By: #### L IPAS #### [facility] [address] [place] [address] Laboratory - Chemistry and C hemistry - challengeon 07-01-2022 Glucose [Mass/Vol] 90 mg/dL 74 - 99 MG-Stephon rivka-Carmen 130 Work Phone: Glucose [Mass/Vol] 72 mg/dL below low threshold 74 - 99 LJ-Udvnakg-Zyzka 130 Work Phone: Glucose [Mass/Vol] 150 mg/dL above high threshold 74 - 99 XS-Ehyjxsk-Ozcgm 130 Work Phone: Glucose [Mass/Vol] 70 mg/dL below low threshold 74 - 99 CR-Xecvlyi-Qrbcz 130 Work Phone: OT Evaluation v2-individual therapyon 07-01-2022 OT Evaluation v2-individual therapy Rehab: Info: Mode of Treatmentindividual therapy; occupational therapy Time IN12:50 Time OUT13:23 Total Treatment Naneugp04 Patient in ... at end of sessionbed, 2 railings up; sitting EOB Communicated with ... at end of sessionbedside nurse Patient Effortexcellent Symptoms Noted During/After Treatmentnone Patient Profile Reviewedyes Onset of Illness/Injury or Date of Rbpupms07-Bbp-5450 Reason for ReferralParaesophageal hernia s/p repair Patient/Family/Caregiver Comments/ObservationsThe pt was pleasant, cooperative and willing to participate in therapy. Patient spoke about wanting to go to a SNF post hospital stay. OT informed patient that she currently is doing too well from an OT's perspective to qualify for a SNF stay. General Observations of Patientpatient was up on bedside commode upon entering finishing BM. During session patient had thought she went again unexpectedly. OT informed patient if she con't to have issues post op with holding bowels she may benefit from seeing a pelvic floor therapist. Patient verbalized understanding. Pertinent History of Current Functional ProblemHTN, DM II, HLD, RA, GERD, anxiety Hearing Precautions/LimitationsWFL Precautions/Limitationsabdominal precautions; fall precautions Limitations/Impairmentsendurance Developmental Statusindependent, age appropriate Ambulation Skills - Previous Level of Functionindependent home ambulator community ambulator Transfer Skills - Previous Level of Functionindependent ADL Skills - Previous Level of Functionindependent Work/Leisure Activity - Previous Level of Functionindependent; +cook, clean Living Arrangementshouse; patient reports post hospital stay her daughter isn't fond of patient living alone so patient is planning on returning to her daughter's home which is a first floor set up 2 steps + landing and 2 more steps, she reports her daughter has a handrail. Lives Withalone Home Accessibilitystairs (1 railing present); stairs to enter home Number of Stairs to Enter Home3 Type of Equipment Currently In the Homenone O2 Deliverynasal cannula; 2L O2 Vision/Cognition: Affect/Mental Status (Cognitive)WFL Orientation Status (Cognition)oriented x 4 Cognition TestsbCAM negative Able to Follow Commands (Receptive)WNL ROM: Upper Extremity: Range of Motionleft upper extremity ROM WNL; right upper extremity ROM WNL Lower Extremity: Range of Motionleft lower extremity ROM WFL; right lower extremity ROM WFL MMT: Upper Extremity: Manual Muscle Testing (MMT)left upper extremity strength WFL; right upper extremity strength WFL; observed functionally, not formally tested due to abd. precautions Lower Extremity: Manual Muscle Testing (MMT)left lower extremity strength WFL; right lower extremity strength WFL; observed functionally Mobility/Tone: Comment, Bed Mobilitysitting on bedside commode pre session, EOB post session Transfer Assessment/Interventionssit to stand transfer; stand to sit transfer; toilet transfer Sit-Stand Wirt (Transfers)standby assist Sit-Stand Assistive Device (Transfers)walker, front-wheeled Stand-Sit Wirt (Transfers)standby assist Stand-Sit Assistive Device (Transfers)walker, front-wheeled Toilet Wirt (Transfers)standby assist Toilet Assistive Device (Transfer)walker, front-wheeled Comment, Gait/Stairs Trainingwalked in room distances with Wheeled Walker without LOB SBA. cues for body walker placement needed. Impairments Impacting Function (Mobility)balance; endurance/activity tolerance ADL: BADL Assessment/Interventiontoileting; lower body dressing; feeding; grooming Wirt Level (Lower Body Dressing)standby assist Comment (Lower Body Dressing)some difficulty to don and doff R sock. Wirt Level (Grooming)supervision Comment (Grooming)stand at sink with supervision to wash hands using Wheeled Walker. Wirt Level (Feeding)modified independence Comment (Feeding)liquid diet currently Wirt Level (Toileting)standby assist Comment (Toileting)patient was able to perform own rear joslyn care, having periods of needing to diallo to restroom and incontinence of rear joslyn area. Motor: Sitting, Static (Balance)normal balance Sitting, Dynamic (Balance)normal balance Pym-th-Byucc (Balance)good balance Standing, Static (Balance)good balance Standing, Dynamic (Balance)good balance Sensory: Comment, Pre/Post Treatment Painno complaints of pain Sensory General Assessmentno sensation deficits identified Health: Observed Emotional Statecooperative; pleasant Plan of Care Reviewed Withpatient Impression: Criteria for Skilled Therapeutic Interventions Met (OT Eval)yes; treatment indicated OT Diagnosisdifficulty with ADL's Occupational Therapy Prognosisgood Functional Level at Time of Evaluation (OT Eval)Min assist with ADL's Patient/Family Goals Statement (OT Eval)to go home. Assessment (more content not included)... Normal [facility] RENAL FUNCTION PANELon 07-01 Albumin [Mass/Vol] 3.0 g/dL Low 3.4 - 5.0 [facility] Comment on above: Performed By: #### G SHAINA #### [facility] [address] [place] [address] Anion gap [Moles/Vol] 12 mmol/L Normal 10 - 20 [facility] Comment on above: Performed By: #### G SHAINA #### [facility] [address] [place] [address] Calcium [Mass/Vol] 7.9 mg/dL Low 8.6 - 10.6 [facility] Comment on above: Performed By: #### G SHAINA #### [facility] [address] [place] [address] Chloride [Moles/Vol] 105 mmol/L Normal 98 - 107 [facility] Comment on above: Performed By: #### G SHAINA #### [facility] [address] [place] [address] Creatinine [Mass/Vol] 1.05 mg/dL Normal 0.50 - 1.05 [facility] Comment on above: Performed By: #### G SHAINA #### [facility] [address] [place] [address] GFR/1.73 sq M.predicted among non-blacks MDRD (S/P/Bld) [Vol rate/Area] 54 mL/min/{1.73_m2} Abnormal >90 [facility] Comment on above: Result Comment: CALCULATIONS OF ESTIMATE D GFR ARE PERFORMED USING THE 2020 CKD-EPI STUDY REFIT EQUATION WITHOUT THE RACE VARIABLE FOR THE IDMS-TRACEABLE CREATININE METHODS. https://jasn.asnjournals.org/content//ASN.6565400544 Performed By: #### G SHAINA #### [facility] [address] [place] [address] Glucose [Mass/Vol] 80 mg/dL Normal 74 - 99 [facility] Comment on above: Performed By: #### G SHAINA #### [facility] [address] [place] [address] HCO3 (Bld) [Moles/Vol] 28 mmol/L Normal 21 - 32 [facility] Comment on above: Performed By: #### G SHAINA #### [facility] [address] [place] [address] Phosphate [Mass/Vol] 4.1 mg/dL Normal 2.5 - 4.9 [facility] Comment on above: Result Comment: The performance characteristics of phosphorus testing in heparinized plasma have been validated by the individual laboratory site where testing is performed. Testing on heparinized plasma is not approved by the FDA; however, such approval is not necessary. Performed By: #### G SHAINA #### [facility] [address] [place] [address] Potassium [Moles/Vol] 3.8 mmol/L Normal 3.5 - 5.3 [facility] Comment on above: Performed By: #### G SHAINA #### [facility] [address] [place] [address] Sodium [Moles/Vol] 141 mmol/L Normal 136 - 145 [facility] Comment on above: Performed By: #### G SHAINA #### [facility] [address] [place] [address] Urea nitrogen [Mass/Vol] 18 mg/dL Normal 6 - 23 [facility] Comment on above: Performed By: #### G SHAINA #### [facility] [address] 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 at end of sessionchair; alarm off; care provider present Communicated with ... at end of sessionbedside nurse Patient Effortexcellent Treatment Considerations/Dtqmljrn6U , tx approved by RN Patient Response to TreatmentPt is progressing as expected was able to tolerate increased amb. Per Pt only needs to negotiate 2 curb step up to enter home then does not need to do any steps in home. Educated Pt on how to step up/down curb using wh W. Pt reported and was able to demo understanding. Cont per POC Mobility/Tone: Bed Mobility Assessment/Interventionssupine to sit Bmalsc-bt-Wru Wirt (Bed Mobility)supervision; verbal cues Assistive Device (Bed Mobility)bed rails Transfer Assessment/Interventionssit to stand transfer; stand to sit transfer Comment, Transferscues for hand placement Sit-Stand Wirt (Transfers)contact guard; standby assist; verbal cues Sit-Stand Assistive Device (Transfers)walker, front-wheeled Stand-Sit Wirt (Transfers)standby assist; contact guard; verbal cues Stand-Sit Assistive Device (Transfers)walker, front-wheeled Gait/Stairs Locomotiongait/ambulation independence; gait/ambulation assistive device; distance ambulated; gait deviations Gait Locomotion (Gait)standby assist; supervision; verbal cues Assistive Device (Gait Training)walker, front-wheeled Distance in Feet (Gait Training)150 feet x1 and 85 feet x1 Gait Deviations Identified (Gait)decreased willie; decreased stride length Safety Issues Impacting Function (Mobility)sequencing abilities Impairments Impacting Function (Mobility)coordination; endurance/activity tolerance; strength TherEx: Therapeutic ExerciseStanding sink ex; heel raises, marching, hip abd x10 reps each with cues for technique and tempo Outcomes Tools: Turning from your back to your side while in a flat bed without using bedrails none Moving from lying on your back to sitting on the side of a flat bed without using bedrailsnone Moving to and from bed to chair (including a wheelchair)a little Standing up from a chair using your arms (e.g. wheelchair or bedside chair)a little To walk in hospital rooma shaheen Climbing 3-5 steps with railinga shaheen AM-PAC (PT) Total Score20 Short Term Goals: Bed Mobility: Date Zfmxkqnwhyz82-Zkc-0655 Bed Mobility: Wirt Level Goalindependent Bed Mobility: Time Frame for Goal2 wks Transfer: Established Transfer: Transfer Type Xuyhamk-kl-lgjra/gbofm-cv-fcy; vhh-hv-hcynv/bjlmt-hb-mom Transfer: Wirt Level Goalmodified independent Transfer: Assistive Device Goalrolling walker Transfer: Time Frame for Goal2 wks Gait: Established Gait: Wirt Level Goalmodified independent Gait: Assistive Device Goalrolling walker Gait: Distance [id number] Gait: Time Frame for Goal2 wks Stair: Established Stair: Wirt Level Goalindependent Stair: Goal Detailsup and down 3-5 stairs using 1 rail Stair: Time Frame for Goal2 wks Balance: Established Balance: Goal DetailsThe pt will demonstrate independent static and dynamic standing balance using a wheeled walker. Balance: Time Frame for Goal2 wks Endurance: Established Endurance: Goal DetailsThe pt will amb 125ft using a wheeled walker with minimal fatigue or SOB. Endurance: Time Frame for Goal2 wks Education: Learnerpatient Barriers to Learningacuteness of illness barrier Methoddemonstration; verbal Outcome Evaluation1=partially meets; needs review Topichome program; precautions; fall prevention; proper use of adaptive equipment to increase safety and decrease fall risk Education - Topicenergy conservation Electronic Signatures: Aristeo Haas (PT) (Signed 01-Jul-2022 13:31) Co-Signer: Info, Mobility/Tone, TherEx, Outcomes Tools, Short Term Goals, Education PranayAna (AQUEDUCT AND RESERVOIR KEEPER) (Signed 01-Jul-2022 11:22) Authored: Info, Mobility/Tone, TherEx, Outcomes Tools, Short Term Goals, Education Last Updated: 01-Jul-2022 13:31 by Aristeo Haas (PT) Normal [facility] Renal Function Panelon 07-01 Albumin BCP dye [Mass/Vol] 3.0 g/dL below low threshold 3.4 - 5.0 YS-Qbjtcxr-Cbtwb 130 Work Phone: Anion gap [Moles/Vol] 12 mmol/L 10 - 20 RQ-Xxtqgbn-Tnxta 130 Work Phone: Calcium [Mass/Vol] 7.9 mg/dL below low threshold 8.6 - 10.6 AU-Muvlmtl-Jlitf 130 Work Phone: Chloride [Moles/Vol] 105 mmol/L 98 - 107 MG-S urgery-Carmen 130 Work Phone: CO2 [Moles/Vol] 28 mmol/L 21 - 32 MG-Surger y-Carmen 130 Work Phone: Creatinine [Mass/Vol] 1.05 mg/dL See Below DZ-Dmkftcp-Qneft 130 Work Phone: Comment on above: Reference Range: 0.5 0 - 1.05 Glucose [Mass/Vol] 80 mg/dL 74 - 99 MG-Stephon rivka-Carmen 130 Work Phone: Phosphate [Mass/Vol] 4.1 mg/dL 2.5 - 4.9 MG-S urgery-Carmen 130 Work Phone: Comment on above: The performance viviana acteristics of phosphorus testing in heparinized plasma have been validated by the individual laboratory site where testing is performed. Testing on heparinized plasma is not approved by the FDA; however, such approval is not necessary. Potassium [Moles/Vol] 3.8 mmol/L 3.5 - 5.3 MG- Surgery-Carmen 130 Work Phone: Sodium [Moles/Vol] 141 mmol/L 136 - 145 MG-Stephon rivka-Carmen 130 Work Phone: Urea nitrogen [Mass/Vol] 18 mg/dL 6 - 23 CH-Anizfgv-Diogm 130 Work Phone: Renal Function Panel 54 {mL/min/1.73m2} Abnormal >90 VJ-Xxrhows-Ydaiz 130 Work Phone: Comment on above: CALCULATIONS OF ESTIMATED GFR ARE PERFOR MED USING THE 2020 CKD-EPI STUDY REFIT EQUATION WITHOUT THE RACE VARIABLE FOR THE IDMS-TRACEABLE CREATININE METHODS.https://jasn.asnjournals.org/content/early//ASN.4871601935 CBCon 06-30-2022 Erythrocyte distribution wid th (RBC) [Ratio] 12.9 % Normal 11.5 - 14.5 [facility] Comment on above: Performed By: #### U A #### [facility] [address] [place] [address] Hematocrit (Bld) [Volume fraction] 40.9 % Normal 36.0 - 46.0 [facility] Comment on above: Performed By: #### U A #### [facility] [address] [place] [address] Hemoglobin (Bld) [Mass/Vol] 13.1 g/dL Normal 12.0 - 1 6.0 [facility] Comment on above: Performed By: #### U A #### [facility] [address] [place] [address] MCHC (RBC) [Mass/Vol] 32.0 g/dL Normal 32.0 - 36.0 [facility] Comment on above: Performed By: #### U A #### [facility] [address] [place] [address] MCV (RBC) [Entitic vol] 100 fL Normal 80 - 100 [facility] Comment on above: Performed By: #### U A #### [facility] [address] [place] [address] NUCLEATED RBC 0.0 /100 WBC Normal 0.0-0.0 [facility] Comment on above: Performed By: #### U A #### [facility] [address] [place] [address] Platelets (Bld) [#/Vol] 174 10*3/uL Normal 150 - 450 [facility] Comment on above: Performed By: #### U A #### [facility] [address] [place] [address] RBC 4.08 x10E12/L Normal 4.00 - 5.20 [facility] Comment on above: Performed By: #### U A #### [facility] [address] [place] [address] WBC (Bld) [#/Vol] 9.1 10*3/uL Normal 4.4 - 11.3 [facility] Comment on above: Performed By: #### U A #### [facility] [address] [place] [address] Daily Progress Note-Surgeryo n 06-30-2022 Daily Progress Note-Surgery Service: Surgery Subjective Data: BROWN HALE is a 76 year old Female who is Hospital Day # 4 and POD #3 for Laparoscopic paraesophageal hernia repair;EGD. NAEON. Patient endorses her night went well and that she is tolerating liquids. Denies N/V/CP/SOB. Patient was on 1.5L NC this morning. Endorses blowing up to 1000 on incentive spirometer. Objective Data: Objective Information: T PRBPMAPSpO2 [id number]/7393% Date/Time06/30 8: 8: 8: 8: 9:00 Range(36C - 37.1C ) (60 - 77 ) (18 - 18 ) (117 - 164 )/ (66 - 87 ) (90% - 93% ) Highest temp of 37.1 C was recorded at 06/29 2:45 Pain reported at 06/29 20:39: 8 = Severe ---- Intake and Output ----- Mn/Dy/Year TimeIntakeOutputNov[facility] Jun 30, 2022 6:00 [id number] Jun 29, 2022 10:00 pm000 Jun 29, 2022 2:00 [id number] The Intake and Output Totals for the last 24 hours are: IntakeOutputNet [id number] Physical Exam by System: Constitutional: NAD, aox3 Head/Neck: nc/at, NC in place Respiratory/Thorax: on 1.5L NC, unlabored, symmetric chest rise Cardiovascular: rr Gastrointestinal: soft, appropriately tender, incisions c/d/i, mildly distended Extremities: maex4 Psychological: appropriate Skin: wwp Recent Lab Results: Results: CBC: 06/30/2022 05:20 \ Hgb / \ 13.1 / WBC Plt 9.1 174 / Hct \ / 40.9 \ RBC: 4.08 MCV: 100 Assessment and Plan: Comorbidities: Comorbidityobesity Obesityobesity (BMI 35-39.9) Code Status: Code StatusFull Code Assessment: Patient is a 76 yo F w/ hx of large hiatal hernia now s/p laparoscopic paraesophageal hernia repair 06/27 w/ Dr. Murray. Post-op esophagram without leak. Advanced diet to FLD. Plan to ambulated. Plan: Neuro: - Pain control with scheduled tylenol, as needed oxycodone, home meloxicam -Continue home citalopram CV: - Continue home amlodipine, statin, hydroxyzine, metoprolol Pulm: - Incentive spirometry - Wean O2 as tolerated GI: - zofran as needed - continue home PPI - Full liquid diet : -continue home oxybutynin - Monitor I&Os - replete electrolytes as clinically indicated Heme: -Monitor CBCs as clinically indicated Endocrine: -Continue home insulin, empagliflozin ID: -Monitor SIRS criteria DVT ppx: SCDs/Lovenox Dispo: Continue care on RNF, PT/OT Alexandra Lafleur MD General Surgery PGY1 [place] [address] Patient discussed with attending, Dr. Murray Attestation: Note Completion: I am a: Resident/Fellow Attending AttestationI reviewed the resident/fellows documentation and discussed the patient with the resident/fellow. I agree with the resident/fellows medical decision making as documented in the note. Electronic Signatures: Alexandra Lafleur (Resident)) (Signed 30-Jun-2022 09:49) Authored: Service, Subjective Data, Objective Data, Assessment and Plan, Note Completion Sergei Murray) (Signed 01-Jul-2022 09:56) Authored: Note Completion Co-Signer: Service, Subjective Data, Objective Data, Assessment and Plan, Note Completion Last Updated: 01-Jul-2022 09:56 by Sergei Murray) Normal [facility] Discharge Planning Bgaz5pm 0 06-30-2022 Discharge Planning Note2 Discharge Planning: Needs Prior to Discharge (ex. Home Care Orders, IV/O2 prescriptions) Front wheeled Walker Anticipated Discharge [id number] Discharge Planning 06/30/22)(1500) Transitional Care Coordination Progress Note: Patient discussed during interdisciplinary rounds. Team members present: MD TCC Plan per Medical/Surgical team: possible drain removal today. Discharge disposition: home with home care Status: inpatient Payer: Medicare A/B and [facility] Potential Barriers: none ADOD: 07/01 I spoke to patient in room to conduct interview. 06/30/22 PCN note @ 3:40pm: PCN visited pt to give HC list and pt's dtr was also in the room. Pt's daughter selected * [facility] * [facility] *[id number] Referrals have been sent. Awaiting response. Nhi Melton Patient Engineer Chief 07/01/22 PCN note @ 9:12am: PCN spoke with pt's dtr, Brown, to inform her of accepting agencies. Dtr chose [facility]. Nhi Melton Patient Engineer Chief PCN update @ 3:46pm: Per TCC, Pt was requesting SNF placement. Daughter, Brown, requested [facility]. Referral was sent. Pt's dtr then was not sure if she prefers SNF or home health. Pt is currently on track for home health. Nhi Melton Patient Engineer Chief 07/01/2022 @ 408pm Transitional property caretaker: Oxygen tanks x2 taken to the patients room from [facility] per TCC. Explained to patient process and informed each tank only last about 2hrs and to call [facility] right before she leaves the hospital so they can meet her at her home to bring the concentrator and other 02 tanks. Madonna Wright RN TCC doc halo 07/01/22 5:44 pm Transitional Water Purifier Operator Met with patient today to discuss discharge planning as well as discussion with daughter Brown Lorenzana via phone [phone]. Patient and daughter initially undecisive regarding disposition to SNF or home to daughter's with Home Health. Final decision by daughter & patient to go to daughter's with [facility]. Patient oxygen supplier will be [facility] [phone]. Oxygen to be delivered to daughter's home after 6 pm tonight. Brown Lorenzana [address] [place] [address]. Written information provided to patient with contact numbers for O2 supplier and daughter notified by telephone that supplier would arrive after 6 pm tonight. Patient and daughter without further questions at this time. Patient has 2 portable oxygen tanks in room for home going. Nan Morrison RN TCC Doc Halo Assessment: Discharge Planning Assessment [id number] Discharge Planning Assessment Completed byJean-Pierre Rosario RNmanufacturing director Coordinator (Doc Halo) Primary Contact Name and NumberBrown Lorenzana [phone] Prior Level of Functioningambulatory Lives With2 dogs, 2 [address] PCPDr. Homero Enrique Preferred Pharmacy Name/LocationBowlb Recent Falls/ Injury/ Need Assist with Ambulationnone reported DME Supplier Name/Numberna Home Care Agency/Support Servicesnone Diabetic/Supplies NeededPatient states she has the DM supplies she needs. Hemodialysis Schedulena Other Needsna Anticipated Transition [place] with help/services Services Anticipated at Transitionnone Readmission Within the Last 30 Daysno previous admission in last 30 days PCP Last Date Seenwith in the past year InsuranceMedicare A/B Blackey Anticipated Changes Related to Illnessnone Equipment Needed After Dischargerolling diana [facility]ated [facility] Planning CommentsPatient verified demographics and feels safe at home. Social Determinants of Health Identifiednone Special Considerationsnone Transportation Home Who/Howdaughter Medication Adherence/Afford/Obtainyes O2 LPMna Home O2 Supplierna Nursing Checklist: Lines/Cathetersremoved/appropriate for next level of care Patient has Prescriptionsyes Transportation for Discharge Confirmedyes Discharge Instructions Reviewed WithPatient, Family Discharge Instructions Outcomeverbalize recall/understanding Discharge Documentation: Discharge/Transfer Date/[id number] 19:06 Discharged Accompanied Byfamily member Discharge [place] Healthretcher Transportation Methodprivate car Code StatusCode Status order at time of discharge: Full Code [place] DNR Form Sent with Patient and/or Familyno Final Disposition.Home Electronic Signatures: Madonna Wright (COOR) (Signed 01-Jul-2022 16:10) Authored: Discharge Planning Nan Morrison (RN) (Signed 01-Jul-2022 17:57) Authored: Discharge Planning Mahin Brandon (RN) (Signed 01-Jul-2022 19:06) Authored: Discharge Planning, Nursing Checklist, Discharge Documentation Jean-Pierre Rosario (RN) (Signed 30-Jun-2022 15:18) Authored: Discharge Planning, Assessment, Discharge Documentation Nhi Melton (PCN) (Signed 01-Jul-2022 15:48) Authored: Discharge Planning, Assessment Last Updated: 01-Jul-2022 19:06 by Mahin Brandon (RN) Normal [facility] Discharge [id number] Discharge Profile2 Discharge Orders: Anticipated Discharge Date: Anticipated Discharge [id number] Problem List: Admitting Dx: Paraesophageal hiatal hernia: Catalog Name: Diaphragmatic hernia without obstruction or gangrene Significant Events: Surgical Procedure: Clinical Events This Visit, 27-Jun-2022, Laparoscopic paraesophageal hernia repair;EGD Hospital Providers: Provider RoleProvider Name Sergei Giang DNAR: Code Status at Discharge: Full Code Activity: activity as tolerated. May not shower until follow-up visit. May not drive until follow-up visit. Diet: Dietfull liquids Oxygen: Administer oxygen at 2 via to maintain SpO2 % of 92. Call Provider If (Homegoing Patients): Breathing faster than normal. Breathing harder than normal or having retractions. Fever of 100.4 F (38 C) or higher. Temperature is greater than 102 degrees. Chills. Drinking less than normal. Acting very sleepy and difficult to awaken. Vomiting (throwing up) and not able to eat or drink for 12 hours. Any new concerning symptoms. Hospital Course (Home Care/Gold Form): Hospital Course: Hospital Course: include significant abnormal lab values Patient presented for laparoscopic repair of paraesophageal hernia and intraoperative esophagogastroduodenoscopy on 06/27. Patient recovered in PACU and was transferred to [facility]. [place] was removed 06/29 in the morning and patient passed her void check. She had a post-op esophagram without leak and was advanced to a full liquid diet. She continued to tolerate her diet and was seen by PT. PT recommended home with home health care and a two wheeled walker. Patient continued to require oxygen by nasal canula and showed need for 2L NC on walking pulse oximetry test. Patient was stable and tolerated activity. Patient was discharged with home health care on 07/01. Home Care Orders: Face to Face Certification: Home Care Services Needed: yes Home Care Agency: Other (with phone number) Jose Alberto Krishnamurthy Provider to Follow After Discharge: Primary Surgeon Skilled Disciplines Ordered: PT, OT Face to Face Encounter Completed: yes Date of Encounter: 01-Jul-2022 Medical Necessity for Homecare (based on clinical findings): PT/OT is needed to further improve strength, endurance, and balance to increase safe mobility and independence. Homebound Status: homebound Homebound Due to:: Patient is temporarily homebound due to S/P paraesophageal hernia repair and is currently walker dependent with weakness during ambulation. Face to Face Completed and Home Care Orders Reviewed: I certify that this patient is under my care. I have reviewed the information included in the face to face and certify that the home care services ordered are medically necessary for this patient. Home Care Services: Home Care Skilled ServiceRehab (PT/OT/SP eval and treat) Rehab: [facility] Visitday after discharge Provider FINAL REVIEW of Orders: Final Review: Final Review of Medication Reconciliation and Orders Completedby Physician Reviewing ProviderJd Reed MD at 01-Jul-2022 14:51:15 Appointments: Follow-Up Appointment 01: Physician/Dept/ServiceDr. Sergei Murray department of Surgery Reason for ReferralFollow-up Call to Schedule in1 week Phone [phone] CommentsPLEASE CALL TO SCHEDULE A FOLLOW-UP APPOINTMENT WITH DR. MURRAY FOR 1-2 WEEKS FROM DISCHARGE. Follow-Up Appointment 02: Physician/Dept/Lyle Reason for ReferralPlease follow up with your primary care physician in regards to your oxygen status and management Call to Schedule in2-3 days Genesisase call to schedule a follow up appointment within the next week with your PCP. Electronic Signatures: Alexandra Lafleur (Resident)) (Signed 01-Jul-2022 16:10) Authored: Discharge Orders, Hospital Course (Home Care/Gold Form), Home Care Orders, Gold Form - Court Attendant Summary, Provider FINAL REVIEW of Orders, Appointments Jd Reed) (Signed 01-Jul-2022 14:51) Authored: Discharge Orders, Home Care Orders, Provider FINAL REVIEW of Orders Sergei Murray) (Signed 01-Jul-2022 17:41) Co-Signer: Discharge Orders, Hospital Course (Home Care/Gold Form), Home Care Orders, Provider FINAL REVIEW of Orders, Appointments Last Updated: 01-Jul-2022 17:41 by Sergei Murray) Normal [facility] GLUCOSE-POCTon 06-30-2022 Glucose [Mass/Vol] 151 mg/dL High 74 - 99 [facility] Comment on above: Performed By: #### G SHAINA #### [facility] [address] [place] [address] Glucose [Mass/Vol] 158 mg/dL High 74 - 99 [facility] Comment on above: Performed By: #### L IPAS #### [facility] [address] [place] [address] Glucose [Mass/Vol] 74 mg/dL Normal 74 - 99 [facility] Comment on above: Performed By: #### G SHAINA #### [facility] [address] [place] [address] Laboratory - Chemistry and C hemistry - challengeon 06-30-2022 Glucose [Mass/Vol] 151 mg/dL above high threshold 74 - 99 PB-Nqxwsbj-Qslin 130 Work Phone: Glucose [Mass/Vol] 158 mg/dL above high threshold 74 - 99 CK-Ndcnnws-Bkhwz 130 Work Phone: Glucose [Mass/Vol] 74 mg/dL 74 - 99 MG-Stephon rivka-Carmen 130 Work Phone: Laboratory - Hematology and Cell countson 06-30-2022 Erythrocyte distribution wid th (RBC) [Ratio] 12.9 % See Below CR-Zkijlfe-Upeyx 130 Work Phone: Comment on above: Reference Range: 11. 5 - 14.5 Hematocrit (Bld) [Volume fraction] 40.9 % S ee Below ZH-Cqxbabq-Zqioz 130 Work Phone: Comment on above: Reference Range: 36. 0 - 46.0 Hemoglobin (Bld) [Mass/Vol] 13.1 g/dL See Belo w WL-Xavudhc-Rlxdo 130 Work Phone: Comment on above: Reference Range: 12. 0 - 16.0 MCHC (RBC) [Mass/Vol] 32.0 g/dL See Below MG- Surgery-Carmen 130 Work Phone: Comment on above: Reference Range: 32. 0 - 36.0 MCV (RBC) [Entitic vol] 100 fL 80 - 100 M H-Sctvkwc-Sjuxo 130 Work Phone: Platelets (Bld) [#/Vol] 174 10*3/uL 150 - 450 KS-Gibxspz-Jpxqh 130 Work Phone: RBC (Bld) [#/Vol] 4.08 {x10E12/L} See Below MG -Surgery-Carmen 130 Work Phone: Comment on above: Reference Range: 4.0 0 - 5.20 WBC (Bld) [#/Vol] 9.1 10*3/uL 4.4 - 11.3 MG-Stephon rivka-Carmen 130 Work Phone: MAGNESIUMon 06-30-2022 Magnesium [Mass/Vol] 1.58 mg/dL Low 1.60 - 2.40 [facility] Comment on above: Performed By: #### U A #### [facility] [address] [place] [address] Magnesium, Serumon Magnesium [Mass/Vol] 1.58 mg/dL below low threshold See Be low JD-Xhwkrkl-Xrmvh 130 Work Phone: Comment on above: Reference Range: 1.6 0 - 2.40 No Panel Informationon 06-30 0.0 {/100_WBC} 0.0-0.0 MG-Surgery -Carmen 130 Work Phone: Order Reconciliationon 06-30 Order Reconciliation Page 1 Discharge Reconciliation Document Reconciliation Type: Discharge requested on behalf of Alexandra Lafleur (Resident) done by Alexandra Lafleur ( (Resident)) Discharge - Partial Reconciliation: 30-Jun-2022 13:11 by: Alexandra Lafleur ( (Resident)) Discharge - Reconciliation: 01-Jul-2022 14:01 by: Alexandra Lafleur ( (Resident)) Discharge - Reset to Incomplete: 01-Jul-2022 15:57 by: Alexandra Lafleur ( (Resident)) Discharge - Reconciliation: 01-Jul-2022 15:59 by: Alexandra Lafleur ( (Resident)) Home Medications EnteredHOME MEDICATIONS AT DISCHARGE DateReconciliation Comment/ Additional Information acetaminophen 325 mg oral tablet 2 tab(s) orally every 4 hours, As Needed 27-Jun-2022 10:54 acetaminophen 325 mg oral tablet 2 tab(s) orally every 4 hours, As Needed 27-Jun-2022 10:54 acetaminophen 325 mg oral tablet is continued as acetaminophen 325 mg oral tablet amLODIPine 5 mg oral tablet 1 tab(s) orally once a day 27-Jun-2022 10:50 amLODIPine 5 mg oral tablet 1 tab(s) orally once a day 27-Jun-2022 10:50 amLODIPine 5 mg oral tablet is continued as amLODIPine 5 mg oral tablet ascorbic acid 100 mg oral tablet 1 tab(s) orally once a day 27-Jun-2022 10:52 ascorbic acid 100 mg oral tablet 1 tab(s) orally once a day 27-Jun-2022 10:52 ascorbic acid 100 mg oral tablet is continued as ascorbic acid 100 mg oral tablet aspirin 81 mg oral tablet 1 tab(s) orally once a day 27-Jun-2022 10:54 aspirin 81 mg oral tablet 1 tab(s) orally once a day 27-Jun-2022 10:54 aspirin 81 mg oral tablet is continued as aspirin 81 mg oral tablet atorvastatin 10 mg oral tablet 1 tab(s) orally once a day 27-Jun-2022 10:21 atorvastatin 10 mg oral tablet 1 tab(s) orally once a day 27-Jun-2022 10:21 atorvastatin 10 mg oral tablet is continued as atorvastatin 10 mg oral tablet azelastine 137 mcg/inh (0.1%) nasal spray 1 spray(s) nasal 2 times a day 27-Jun-2022 10:35 azelastine 137 mcg/inh (0.1%) nasal spray 1 spray(s) nasal 2 times a day 27-Jun-2022 10:35 azelastine 137 mcg/inh (0.1%) nasal spray is continued as azelastine 137 mcg/inh (0.1%) nasal spray citalopram 20 mg oral tablet 1 tab(s) orally once a day 27-Jun-2022 10:36 citalopram 20 mg oral tablet 1 tab(s) orally once a day 27-Jun-2022 10:36 citalopram 20 mg oral tablet is continued as citalopram 20 mg oral tablet conjugated estrogens 0.625 mg/g vaginal cream with applicator 1 application vaginal 2 times a week, As Needed 27-Jun-2022 11:22 conjugated estrogens 0.625 mg/g vaginal cream with applicator 1 application vaginal 2 times a week, As Needed 27-Jun-2022 11:22 conjugated estrogens 0.625 mg/g vaginal cream with applicator is continued as conjugated estrogens 0.625 mg/g vaginal cream with applicator cyanocobalamin 100 mcg oral tablet 1 tab(s) orally once a day 27-Jun-2022 10:53 cyanocobalamin 100 mcg oral tablet 1 tab(s) orally once a day 27-Jun-2022 10:53 cyanocobalamin 100 mcg oral tablet is continued as cyanocobalamin 100 mcg oral tablet dulaglutide 0.75 mg/0.5 mL subcutaneous solution 0.75 milligram(s) subcutaneous once a day (at bedtime) (Thursday) 27-Jun-2022 10:48 dulaglutide 0.75 mg/0.5 mL subcutaneous solution 0.75 milligram(s) subcutaneous once a day (at bedtime) (Thursday) 27-Jun-2022 10:48 dulaglutide 0.75 mg/0.5 mL subcutaneous solution is continued as dulaglutide 0.75 mg/0.5 mL subcutaneous solution empagliflozin 10 mg oral tablet 1 tab(s) orally once a day (in the morning) 27-Jun-2022 10:44 empagliflozin 10 mg oral tablet 1 tab(s) orally once a day (in the morning) 27-Jun-2022 10:44 empagliflozin 10 mg oral tablet is continued as empagliflozin 10 mg oral tablet ergocalciferol 1.25 mg (50,000 intl units) oral tablet 1 tab(s) orally once a week (Thursday) 27-Jun-2022 10:39 ergocalciferol 1.25 mg (50,000 intl units) oral tablet 1 tab(s) orally once a week (Thursday) 27-Jun-2022 10:39 ergocalciferol 1.25 mg (50,000 intl units) oral tablet is continued as ergocalciferol 1.25 mg (50,000 intl units) oral tablet Front wheeled Walker 1 unit(s) once to use as needed for ambulatory assistance 30-Jun-2022 12:52 Front wheeled Walker 1 unit(s) once to use as needed for ambulatory assistance 30-Jun-2022 12:52 Front wheeled Walker is continued as Front wheeled Walker hydrOXYzine hydrochloride 25 mg oral tablet 1 tab(s) orally once a day (at bedtime) 27-Jun-2022 10:42 hydrOXYzine hydrochloride 25 mg oral tablet 1 tab(s) orally once a day (at bedtime) 27-Jun-2022 10:42 hydrOXYzine hydrochloride 25 mg oral tablet is continued as hydrOXYzine hydrochloride 25 mg oral tablet insulin detemir 100 units/mL subcutaneous solution 30 unit(s) subcutaneous once a day (at bedtime) 27-Jun-2022 10:46 insulin detemir 100 units/mL subcutaneous solution 30 unit(s) subcutaneous once a day (at bedtime) 27-Jun-2022 10:46 insulin detemir 100 units/mL subcutaneous solution is continued as insulin detemir 100 units/mL subcutaneous solutio (more content not included)... Normal [facility] PT Evaluation v2-physical th erapyon 06-30-2022 PT Evaluation v2-physical therapy Rehab: Info: Mode of Treatmentphysical therapy Time IN09:41 Time OUT10:17 Total Treatment [id number] Patient in ... at end of sessionchair; alarm off; not on at start of visit Communicated with ... at end of sessionbedside nurse Patient Effortgood Symptoms Noted During/After Treatmentfatigue Patient Profile Reviewedyes Onset of Illness/Injury or Date of [id number] Reason for ReferralParaesophageal hernia s/p repair Patient/Family/Caregiver Comments/ObservationsThe pt was pleasant, cooperative and willing to participate in therapy. General Observations of PatientThe pt required SBA to perform supine to sit transfer using the log roll technique. The pt required SBA to perform sit to stand to sit transfers, bed to chair transfer and amb ~65ft using a wheeled walker. Pertinent History of Current Functional ProblemHTN, DM II, HLD, RA, GERD, anxiety Hearing Precautions/LimitationsWFL Precautions/Limitationsabdominal precautions; fall precautions Limitations/Impairmentsendurance Developmental Statusindependent, age appropriate Ambulation Skills - Previous Level of Functionindependent home ambulator community ambulator Transfer Skills - Previous Level of Functionindependent Living Arrangementshouse Lives Withalone Home Accessibilitystairs (1 railing present); stairs to enter home Number of Stairs to Enter Home3 Type of Equipment Currently In the Homenone O2 Deliverynasal cannula; 2L O2 Vision/Cognition: Visual Impairment/LimitationsWFL; 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 Affect/Mental Status (Cognitive)WFL Orientation Status (Cognition)oriented x 4; oriented to; person; place; situation; time ROM: Head/Neck/Trunk: Range of Motionneck ROM WFL; limited trunk ROM Upper Extremity: Range of Motionleft upper extremity ROM WFL; right upper extremity ROM WFL Hand: Range of Motionleft thumb ROM WFL; right thumb ROM WFL; left finger ROM WFL; right finger ROM WFL Lower Extremity: Range of Motionleft lower extremity ROM WFL; right lower extremity ROM WFL MMT: Neck/Trunk: Manual Muscle Testing (MMT)neck strength WFL; trunk 4/5 Upper Extremity: Manual Muscle Testing (MMT)Toney shoulder flex 4+/5, all others 5/5 Hand: Manual Muscle Testing (MMT)left thumb strength WFL; right thumb strength WFL; left fingers strength WFL; right fingers strength WFL Lower Extremity: Manual Muscle Testing (MMT)Toney hip flex 4+/5, all others 5/5 Mobility/Tone: Bed Mobility Assessment/Interventionsbed mobility activities; rolling left; scooting/bridging; supine to sit Wirt (Bed Mobility)verbal cues; standby assist; 1 person assist Roll Left Wirt (Bed Mobility)verbal cues; standby assist; 1 person assist Scoot/Bridge Wirt (Bed Mobility)verbal cues; standby assist; 1 person assist Stvxsg-ua-Gag Wirt (Bed Mobility)verbal cues; standby assist; 1 person assist Assistive Device (Bed Mobility)bed rails Comment, Bed Mobilitylog roll technique Transfer Assessment/Interventionsbed to chair transfer; sit to stand transfer; stand to sit transfer Bed-Chair Wirt (Transfers)verbal cues; standby assist; 1 person assist Bed-Chair Assistive Device (Transfers)walker, front-wheeled Sit-Stand Wirt (Transfers)verbal cues; standby assist; 1 person assist Sit-Stand Assistive Device (Transfers)walker, front-wheeled Stand-Sit Wirt (Transfers)verbal cues; standby assist; 1 person assist Stand-Sit Assistive Device (Transfers)walker, front-wheeled Gait/Stairs Locomotiongait/ambulation independence; gait/ambulation assistive device; distance ambulated; gait pattern utilized; gait deviations Gait Locomotion (Gait)verbal cues; standby assist; 1 person assist Assistive Device (Gait Training)walker, front-wheeled Distance in Feet (Gait Training)~65ft Gait Pattern Utilized (Gait)swing-through gait Gait Deviations Identified (Gait)decreased willie; decrease trunk rotation; increased time in double stance; decreased velocity of limb motion; decreased step length; decreased stride length Comment, Gait/Stairs Trainingslightly unsteady, decreased endurance Safety Issues Impacting Function (Mobility)none Impairments Impacting Function (Mobility)balance; endurance/activity tolerance; pain; range of motion; strength Motor: Sitting, Static (Balance)good balance Sitting, Dynamic (Balance)good balance Yiu-wk-Sygtr (Balance)fair balance Standing, Static (Balance)fair balance Standing, Dynamic (Balance)fair balance Balance ActivitiesThe pt presented with SBA sit to stand transfer balance and static and dynamic standing balance using a wheeled walker. Systems Impairment Contributing to Balance Disturbance (Balance) musculoskeletal Identified Impairments Contributing to Balance Disturbance (Balance)strength decreased; ROM (range of motion) decreased; pain Sensory: Pre-Treatment Pain Rating3/10 Post-Treatment Pain Rating3/10 Pain Locati (more content not included)... Normal [facility] RENAL FUNCTION PANELon 06-30 Albumin [Mass/Vol] 3.1 g/dL Low 3.4 - 5.0 [facility] Comment on above: Order Comment: RESUL TS RB TO SASKIA SALV, 06/30/2022 12:18 Performed By: #### L IPAS #### [facility] [address] [place] [address] Anion gap [Moles/Vol] 12 mmol/L Normal 10 - 20 [facility] Comment on above: Order Comment: RESUL TS RB TO SASKIA SALV, 06/30/2022 12:18 Performed By: #### L IPAS #### [facility] [address] [place] [address] Calcium [Mass/Vol] 8.4 mg/dL Low 8.6 - 10.6 [facility] Comment on above: Order Comment: RESUL TS RB TO SASKIA SALV, 06/30/2022 12:18 Performed By: #### L IPAS #### [facility] [address] [place] [address] Chloride [Moles/Vol] 108 mmol/L High 98 - 107 [facility] Comment on above: Order Comment: RESUL TS RB TO SASKIA SALV, 06/30/2022 12:18 Performed By: #### L IPAS #### [facility] [address] [place] [address] Creatinine [Mass/Vol] 0.95 mg/dL Normal 0.50 - 1.05 [facility] Comment on above: Order Comment: RESUL TS RB TO SASKIA SALV, 06/30/2022 12:18 Performed By: #### L IPAS #### [facility] [address] [place] [address] GFR/1.73 sq M.predicted among non-blacks MDRD (S/P/Bld) [Vol rate/Area] 61 mL/min/{1.73_m2} Normal >90 [facility] Comment on above: Order Comment: RESUL TS RB TO SASKIA SALV, 06/30/2022 12:18 Result Comment: CALC ULATIONS OF ESTIMATED GFR ARE PERFORMED USING THE 2020 CKD-EPI STUDY REFIT EQUATION WITHOUT THE RACE VARIABLE FOR THE IDMS-TRACEABLE CREATININE METHODS. https://jasn.asnjournals.org/content/early/ASN.3143504625 Performed By: #### L IPAS #### [facility] [address] [place] [address] Glucose [Mass/Vol] 53 mg/dL Critically low 74 - 99 [facility] Comment on above: Order Comment: RESUL TS RB TO SASKIA SALV, 06/30/2022 12:18 Result Comment: RESU LTS RB TO SASKIA SALV, 06/30/2022 12:18 Performed By: #### L IPAS #### [facility] [address] [place] [address] HCO3 (Bld) [Moles/Vol] 29 mmol/L Normal 21 - 32 [facility] Comment on above: Order Comment: RESUL TS RB TO SASKIA SALV, 06/30/2022 12:18 Performed By: #### L IPAS #### [facility] [address] [place] [address] Phosphate [Mass/Vol] 3.6 mg/dL Normal 2.5 - 4.9 [facility] Comment on above: Order Comment: RESUL TS RB TO SASKIA SALV, 06/30/2022 12:18 Result Comment: The performance characteristics of phosphorus testing in heparinized plasma have been validated by the individual laboratory site where testing is performed. Testing on heparinized plasma is not approved by the FDA; however, such approval is not necessary. Performed By: #### L IPAS #### [facility] [address] [place] [address] Potassium [Moles/Vol] 3.7 mmol/L Normal 3.5 - 5.3 [facility] Comment on above: Order Comment: RESUL TS RB TO SASKIA SALV, 06/30/2022 12:18 Performed By: #### L IPAS #### [facility] [address] [place] [address] Sodium [Moles/Vol] 145 mmol/L Normal 136 - 145 [facility] Comment on above: Order Comment: RESUL TS RB TO SASKIA SALV, 06/30/2022 12:18 Performed By: #### L IPAS #### [facility] [address] [place] [address] Urea nitrogen [Mass/Vol] 18 mg/dL Normal 6 - 23 [facility] Comment on above: Order Comment: RESUL TS RB TO SASKIA SALV, 06/30/2022 12:18 Performed By: #### L IPAS #### [facility] [address] [place] [address] Renal Function Panelon 06-30 Albumin BCP dye [Mass/Vol] 3.1 g/dL below low threshold 3.4 - 5.0 TQ-Kawsgil-Ajjrb 130 Work Phone: Anion gap [Moles/Vol] 12 mmol/L 10 - 20 RJ-Udmnbbk-Kuzdz 130 Work Phone: Calcium [Mass/Vol] 8.4 mg/dL below low threshold 8.6 - 10.6 MJ-Oeeixsz-Febht 130 Work Phone: Chloride [Moles/Vol] 108 mmol/L above high threshold 98 - 107 LR-Rilizpj-Cwfzg 130 Work Phone: CO2 [Moles/Vol] 29 mmol/L 21 - 32 MG-Surger y-Carmen 130 Work Phone: Creatinine [Mass/Vol] 0.95 mg/dL See Below CV-Splajwf-Prizy 130 Work Phone: Comment on above: Reference Range: 0.5 0 - 1.05 Glucose [Mass/Vol] 53 mg/dL Critically low 74 - 99 MG -Surgery-Carmen 130 Work Phone: Comment on above: RESULTS RB TO SASKIA SALV, 06/30/2022 12:18 Phosphate [Mass/Vol] 3.6 mg/dL 2.5 - 4.9 MG-S urgery-Carmen 130 Work Phone: Comment on above: The performance vivinaa acteristics of phosphorus testing in heparinized plasma have been validated by the individual laboratory site where testing is performed. Testing on heparinized plasma is not approved by the FDA; however, such approval is not necessary. Potassium [Moles/Vol] 3.7 mmol/L 3.5 - 5.3 MG- Surgery-Carmen 130 Work Phone: Sodium [Moles/Vol] 145 mmol/L 136 - 145 MG-Stephon rivka-Carmen 130 Work Phone: Urea nitrogen [Mass/Vol] 18 mg/dL 6 - 23 CK-Wdzxzen-Cruxq 130 Work Phone: Renal Function Panel 61 {mL/min/1.73m2} >90 BM-Aqxqgfe-Zpkiv 130 Work Phone: Comment on above: CALCULATIONS OF ESTIMATED GFR ARE PERFOR MED USING THE 2020 CKD-EPI STUDY REFIT EQUATION WITHOUT THE RACE VARIABLE FOR THE IDMS-TRACEABLE CREATININE METHODS.https://jasn.asnjournals.org/content/early//ASN.8642631715 Daily Progress Note-Surgeryo n 06-29-2022 Daily Progress Note-Surgery Service: Surgery Subjective Data: BROWN HALE is a 76 year old Female who is Hospital Day # 3 and POD #2 for Laparoscopic paraesophageal hernia repair;EGD. NAEO. Having bowel function. Tolerating liquids without n/v. Knox removed this AM, has not ambulated yet. Objective Data: Objective Information: T PRBPMAPSpO2 [id number]/7891% Date/Time06/29 2: 2: 2: 2: 2:45 Range(36C - 37.1C ) (64 - 91 ) (17 - 19 ) (108 - 150 )/ (68 - 87 ) (90% - 93% ) Highest temp of 37.1 C was recorded at 06/29 2:45 Pain reported at 06/28 16:00: 6 = Moderate ---- Intake and Output ----- Mn/Dy/Year TimeIntakeOutputNet Jun 29, 2022 6:00 [id number] Jun 28, 2022 10:00 [id number] Jun 28, 2022 2:00 [id number] The Intake and Output Totals for the last 24 hours are: [id number] Physical Exam by System: Constitutional: NAD, aox3 Head/Neck: nc/at, NC in place Respiratory/Thorax: on 2L NC, unlabored, symmetric chest rise Cardiovascular: rr Gastrointestinal: soft, appropriately tender, incisions c/d/i, mildly distended Extremities: maex4 Psychological: appropriate Skin: wwp Medication: Medications: Continuous Medications 1. Lactated Ringers Infusion: 1000 mL IntraVenous Scheduled Medications 1. Acetaminophen: 650 mg Oral Every 6 Hours 2. amLODIPine (NORVASC): 5 mg Oral Daily 3. Aspirin Enteric Coated: 81 mg Oral Daily 4. Atorvastatin: 10 mg Oral Daily 5. Citalopram (CELEXA): 20 mg Oral Daily 6. Empagliflozin: 10 mg Oral Daily 7. Enoxaparin SubCutaneous: 40 mg SubCutaneous Every 24 Hours 8. hydrOXYzine Hydrochloride (ATARAX): 25 mg Oral At Bedtime 9. Insulin Detemir (Levemir) Injectable: 15 unit(s) SubCutaneous At Bedtime 10. Insulin Lispro Mild Corrective Scale: unit(s) SubCutaneous 3 Times a Day Before Meals 11. Meloxicam: 15 mg Oral Daily 12. Metoprolol Tartrate: 12.5 mg Oral 2 Times a Day 13. Oxybutynin: 5 mg Oral Daily 14. Pantoprazole Injectable: 20 mg IntraVenous Push Every 24 Hours PRN Medications 1. Dextrose 50% in Water Injectable: 25 gram(s) IntraVenous Push Every 15 Minutes 2. Glucagon Injectable: 1 mg IntraMuscular Every 15 Minutes 3. Labetalol Injectable: 20 mg IntraVenous Push Every 4 Hours 4. Ondansetron Injectable: 4 mg IntraVenous Push Every 6 Hours 5. oxyCODONE Immediate Release: 5 mg Oral Every 4 Hours 6. oxyCODONE Immediate Release: 10 mg Oral Every 4 Hours Recent Lab Results: Results: I have reviewed these laboratory results: Basic Metabolic Panel 28-Jun-2022 05:49:00 ResultValue Glucose, Serum 134 H NA 140 K 3.8 CL 104 Bicarbonate, Serum 25 Anion Gap, Serum 15 BUN 19 CREAT 0.90 GFR Female 65 Calcium, Serum 8.3 L Complete Blood Count 28-Jun-2022 05:49:00 ResultValue White Blood Cell Count 8.4 Nucleated Erythrocyte Count 0.0 Red Blood Cell Count 4.16 HGB 13.1 HCT 39.2 MCV 94 MCHC 33.4 PLT 166 RDW-CV 13.2 Assessment and Plan: Daily Risk Screen: Does patient have an indwelling urinary catheteryes Plan for indwelling urinary catheter removal todayyes Comorbidities: Comorbidityobesity Obesityobesity (BMI 35-39.9) Code Status: Code StatusFull Code Assessment: Patient is a 76 yo F w/ hx of large hiatal hernia now s/p laparoscopic paraesophageal hernia repair 06/27 w/ Dr. Murray. Post-op esophagram without leak. Advanced diet to FLD. Knox removed this AM. Plan to ambulated. Plan: - Pain control with scheduled tylenol, as needed oxycodone, home meloxicam - zofran as needed - cont home meds: PPI, insulin, amlodipine, citalopram, statin, empagliflozin, hydroxyzine, metoprolol, oxybutynin - FLD - OOB - knox out - TOV, cont. strict I's/O's - SCDs/Lovenox - dc IVF - f/u AM labs - PT Josue Cobos MD PGY-2, General Surgery [place] [address] Patient discussed with attending, Dr. Murray Attestation: Note Completion: I am a: Resident/Fellow Attending AttestationI reviewed the resident/fellows documentation and discussed the patient with the resident/fellow. I agree with the resident/fellows medical decision making as documented in the note. Electronic Signatures: Josue Cobos (Resident)) (Signed 29-Jun-2022 07:04) Authored: Service, Subjective Data, Objective Data, Assessment and Plan, Note Completion Sergei Murray) (Signed 30-Jun-2022 08:39) Authored: Note Completion Co-Signer: Service, Subjective Data, Objective Data, Assessment and Plan, Note Completion Last Updated: 30-Jun-2022 08:39 by Sergei Murray) Normal [facility] GLUCOSE-POCTon 06-29-2022 Glucose [Mass/Vol] 129 mg/dL High 74 - 99 [facility] Comment on above: Performed By: #### G SHAINA #### [facility] [address] [place] [address] Glucose [Mass/Vol] 144 mg/dL High 74 - 99 [facility] Comment on above: Performed By: #### U A #### [facility] [address] [place] [address] Glucose [Mass/Vol] 87 mg/dL Normal 74 - 99 [facility] Comment on above: Performed By: #### G SHAINA #### [facility] [address] [place] [address] Laboratory - Chemistry and C hemistry - challengeon 06-29-2022 Glucose [Mass/Vol] 129 mg/dL above high threshold 74 - 99 PB-Doidhzr-Thram 130 Work Phone: Glucose [Mass/Vol] 144 mg/dL above high threshold 74 - 99 NE-Eqelulk-Izgve 130 Work Phone: Glucose [Mass/Vol] 87 mg/dL 74 - 99 MG-Stephon rivka-Carmen 130 Work Phone: BASIC METABOLIC PANELon 08-2 Anion gap [Moles/Vol] 15 mmol/L Normal 10 - 20 [facility] Comment on above: Performed By: #### B MP #### [facility] [address] [place] [address] Calcium [Mass/Vol] 8.3 mg/dL Low 8.6 - 10.6 [facility] Comment on above: Performed By: #### B MP #### [facility] [address] [place] [address] Chloride [Moles/Vol] 104 mmol/L Normal 98 - 107 [facility] Comment on above: Performed By: #### B MP #### [facility] [address] [place] [address] Creatinine [Mass/Vol] 0.90 mg/dL Normal 0.50 - 1.05 [facility] Comment on above: Performed By: #### B MP #### [facility] [address] [place] [address] GFR/1.73 sq M.predicted among non-blacks MDRD (S/P/Bld) [Vol rate/Area] 65 mL/min/{1.73_m2} Normal >90 [facility] Comment on above: Result Comment: CALCULATIONS OF ESTIMATE D GFR ARE PERFORMED USING THE 2020 CKD-EPI STUDY REFIT EQUATION WITHOUT THE RACE VARIABLE FOR THE IDMS-TRACEABLE CREATININE METHODS. https://jasn.asnjournals.org/content/early/ASN.7645544525 Performed By: #### B MP #### [facility] [address] [place] [address] Glucose [Mass/Vol] 134 mg/dL High 74 - 99 [facility] Comment on above: Performed By: #### B MP #### [facility] [address] [place] [address] HCO3 (Bld) [Moles/Vol] 25 mmol/L Normal 21 - 32 [facility] Comment on above: Performed By: #### B MP #### [facility] [address] [place] [address] Potassium [Moles/Vol] 3.8 mmol/L Normal 3.5 - 5.3 [facility] Comment on above: Performed By: #### B MP #### [facility] [address] [place] [address] Sodium [Moles/Vol] 140 mmol/L Normal 136 - 145 [facility] Comment on above: Performed By: #### B MP #### [facility] [address] [place] [address] Urea nitrogen [Mass/Vol] 19 mg/dL Normal 6 - 23 [facility] Comment on above: Performed By: #### B MP #### [facility] [address] [place] [address] CBCon 06-28-2022 Erythrocyte distribution wid th (RBC) [Ratio] 13.2 % Normal 11.5 - 14.5 [facility] Comment on above: Performed By: #### G SHAINA #### [facility] [address] [place] [address] Hematocrit (Bld) [Volume fraction] 39.2 % Normal 36.0 - 46.0 [facility] Comment on above: Performed By: #### G SHAINA #### [facility] [address] [place] [address] Hemoglobin (Bld) [Mass/Vol] 13.1 g/dL Normal 12.0 - 1 6.0 [facility] Comment on above: Performed By: #### G SHAINA #### [facility] [address] [place] [address] MCHC (RBC) [Mass/Vol] 33.4 g/dL Normal 32.0 - 36.0 [facility] Comment on above: Performed By: #### G SHAINA #### [facility] [address] [place] [address] MCV (RBC) [Entitic vol] 94 fL Normal 80 - 100 [facility] Comment on above: Performed By: #### G SHAINA #### [facility] [address] [place] [address] NUCLEATED RBC 0.0 /100 WBC Normal 0.0-0.0 [facility] Comment on above: Performed By: #### G SHAINA #### [facility] [address] [place] [address] Platelets (Bld) [#/Vol] 166 10*3/uL Normal 150 - 450 [facility] Comment on above: Performed By: #### G SHAINA #### [facility] [address] [place] [address] RBC 4.16 x10E12/L Normal 4.00 - 5.20 [facility] Comment on above: Performed By: #### G SHAINA #### [facility] [address] [place] [address] WBC (Bld) [#/Vol] 8.4 10*3/uL Normal 4.4 - 11.3 [facility] Comment on above: Performed By: #### G SHAINA #### [facility] [address] [place] [address] Daily Progress Note-Surgeryo n 06-28-2022 Daily Progress Note-Surgery Service: Surgery Subjective Data: BROWN HALE is a 76 year old Female who is Hospital Day # 2 and POD #1 for Laparoscopic paraesophageal hernia repair;EGD. Slept through night. Anxious about knox removal given hx of incontinence. Otherwise doing well, tolerating CLD w/ N/V. Objective Data: Objective Information: T PRBPMAPSpO2 [id number]/7790% Date/Time06/28 5: 5: 5: 5: 5:26 Range(36.1C - 36.6C ) (66 - 82 ) (17 - 18 ) (148 - 181 )/ (77 - 104 ) (90% - 93% ) As of 27-Jun-2022 16:00:00, patient is on 2 L/min of oxygen via nasal cannula. Pain reported at 06/28 5:30: 5 = Moderate ---- Intake and Output ----- Mn/Dy/Year TimeIntakeOutputNet Jun 28, 2022 6:00 [id number] Jun 27, 2022 10:00 [id number] Jun 27, 2022 2:00 [id number] The Intake and Output Totals for the last 24 hours are: IntakeOutputNet [id number] Physical Exam by System: Constitutional: NAD, aox3 Head/Neck: nc/at, NC in place Respiratory/Thorax: on 2L NC, unlabored, symmetric chest rise Cardiovascular: rr Gastrointestinal: soft, appropriately tender, incisions c/d/i, mildly distended Genitourinary: knox draining clear yellow urine Extremities: maex4 Psychological: appropriate Skin: wwp Medication: Medications: Continuous Medications 1. Lactated Ringers Infusion: 1000 mL IntraVenous Scheduled Medications 1. Acetaminophen: 650 mg Oral Every 6 Hours 2. amLODIPine (NORVASC): 5 mg Oral Daily 3. Aspirin Enteric Coated: 81 mg Oral Daily 4. Atorvastatin: 10 mg Oral Daily 5. Citalopram (CELEXA): 20 mg Oral Daily 6. Empagliflozin: 10 mg Oral Daily 7. Enoxaparin SubCutaneous: 40 mg SubCutaneous Every 24 Hours 8. hydrOXYzine Hydrochloride (ATARAX): 25 mg Oral At Bedtime 9. Insulin Detemir (Levemir) Injectable: 15 unit(s) SubCutaneous At Bedtime 10. Insulin Lispro Mild Corrective Scale: unit(s) SubCutaneous 3 Times a Day Before Meals 11. Meloxicam: 15 mg Oral Daily 12. Metoprolol Tartrate: 12.5 mg Oral 2 Times a Day 13. Pantoprazole Injectable: 20 mg IntraVenous Push Every 24 Hours PRN Medications 1. Dextrose 50% in Water Injectable: 25 gram(s) IntraVenous Push Every 15 Minutes 2. Glucagon Injectable: 1 mg IntraMuscular Every 15 Minutes 3. Labetalol Injectable: 20 mg IntraVenous Push Every 4 Hours 4. Ondansetron Injectable: 4 mg IntraVenous Push Every 6 Hours 5. oxyCODONE Immediate Release: 5 mg Oral Every 4 Hours 6. oxyCODONE Immediate Release: 10 mg Oral Every 4 Hours Assessment and Plan: Daily Risk Screen: Does patient have an indwelling urinary catheteryes Plan for indwelling urinary catheter removal todayyes Comorbidities: Comorbidityobesity Obesityobesity (BMI 35-39.9) Code Status: Code StatusFull Code Assessment: Patient is a 76 yo F w/ hx of large hiatal hernia now s/p laparoscopic paraesophageal hernia repair 06/27 w/ Dr. Murray. Plan to obtain post-op esophagram today. Currently tolerating CLD - will adv following esophagram to FLD. Remove knox today. Plan: - Pain control with scheduled tylenol, as needed oxycodone, home meloxicam - zofran as needed - cont home meds: PPI, insulin, amlodipine, citalopram, statin, empagliflozin, hydroxyzine, metoprolol, oxybutynin - CLD -> adv to FLD after esophagram - OOB - DC knox, cont. strict I's/O's - SCDs/Lovenox - cont IVF 75/h - f/u AM labs - PT Josue Cobos MD PGY-2, General Surgery [place] [address] Patient discussed with attending, Dr. Murray Attestation: Note Completion: I am a: Resident/Fellow Attending AttestationI reviewed the resident/fellows documentation and discussed the patient with the resident/fellow. I agree with the resident/fellows medical decision making as documented in the note. Electronic Signatures: Josue Cobos (Resident)) (Signed 28-Jun-2022 08:36) Authored: Service, Subjective Data, Objective Data, Assessment and Plan, Note Completion Sergei Murray) (Signed 30-Jun-2022 08:35) Authored: Note Completion Co-Signer: Service, Subjective Data, Objective Data, Assessment and Plan, Note Completion Last Updated: 30-Jun-2022 08:35 by Sergei Murray) [facility] GI TRACT, UPPER W/KUBon 08-2 GI TRACT, UPPER W/KUB Patient Name: BROWN HALE STUDY: GI TRACT, UPPER W/KUB; 06/28/2022 10:00 am INDICATION: 76 y/o F with Status post hiatal hernia repair; check for recurrence of hernia. . Per EMR: Patient is a 76-year-old female is postoperative day 1 for paraesophageal hernia repair. Plan to obtain post-op esophagram. COMPARISON: None. ACCESSION NUMBER(S): [id number] ORDERING CLINICIAN: ANNIKA MEADOWS TECHNIQUE: Images of the esophagus and stomach were obtained. CONTRAST MEDIA: 50 mL Gastrografin given orally. FLUOROSCOPY TIME: Fluoroscopy time: 0.8 minutes. FINDINGS: Pre-contrast fluoroscopic image of the abdomen demonstrates gaseous distension of the stomach and proximal duodenum. Post-contrast image demonstrates a small amount of positive oral contrast near the fundus of the stomach. ESOPHAGUS: There is a column of positive oral contrast which is persistent within the esophagus. There is a small strand of positive oral contrast which extends from the distal portion of the esophagus to the proximal stomach. The esophagus is normal in caliber and demonstrates tertiary waves. There is no extraluminal contrast. STOMACH: Small amount of contrast is seen within the proximal stomach. There is no extraluminal contrast. Contrast was not visualized within the distal stomach, duodenum, or duodenal jejunal junction. GASTROESOPHAGEAL REFLUX: Unable to be assessed secondary to persistent column of positive oral contrast within the esophagus. IMPRESSION: Persistent column of positive oral contrast in the esophagus with tertiary waves and a very thin caliber strand of contrast extending from the distal esophagus into the stomach. There is no extraluminal contrast. Given recent surgery, findings are suspected to be secondary to postsurgical edema limiting passage of contrast into the stomach. Attention on follow-up recommended. I personally reviewed the images/study and I agree with the findings as stated. This study was interpreted at [facility], [place], [place]. Electronically signed by: JOSUÉ SKINNER MD Normal [facility] GLUCOSE-POCTon 06-28-2022 Glucose [Mass/Vol] 167 mg/dL High 74 - 99 [facility] Comment on above: Performed By: #### G SHAINA #### [facility] [address] [place] [address] Glucose [Mass/Vol] 110 mg/dL High 74 - 99 [facility] Comment on above: Performed By: #### G SHAINA #### [facility] [address] [place] [address] Glucose [Mass/Vol] 199 mg/dL High 74 - 99 [facility] Comment on above: Performed By: #### G SHAINA #### [facility] [address] [place] [address] Laboratory - Chemistry and C hemistry - challengeon 06-28-2022 Glucose [Mass/Vol] 167 mg/dL above high threshold 74 - 99 LP-Eposotp-Geejx 130 Work Phone: Glucose [Mass/Vol] 110 mg/dL above high threshold 74 - 99 WH-Kafmlpc-Cpikt 130 Work Phone: Glucose [Mass/Vol] 199 mg/dL above high threshold 74 - 99 IW-Izhlvwr-Mgtej 130 Work Phone: Anion gap [Moles/Vol] 15 mmol/L 10 - 20 QA-Igeufmw-Fmrgh 130 Work Phone: Calcium [Mass/Vol] 8.3 mg/dL below low threshold 8.6 - 10.6 SH-Xygctpg-Diuhz 130 Work Phone: Chloride [Moles/Vol] 104 mmol/L 98 - 107 MG-S urgery-Carmen 130 Work Phone: CO2 [Moles/Vol] 25 mmol/L 21 - 32 MG-Surger y-Carmen 130 Work Phone: Creatinine [Mass/Vol] 0.90 mg/dL See Below IF-Xunfsdp-Bmhww 130 Work Phone: Comment on above: Reference Range: 0.5 0 - 1.05 Glucose [Mass/Vol] 134 mg/dL above high threshold 74 - 99 EJ-Eoiauam-Uygrh 130 Work Phone: Potassium [Moles/Vol] 3.8 mmol/L 3.5 - 5.3 QW-Nubedgd-Vhvhd 130 Work Phone: Sodium [Moles/Vol] 140 mmol/L 136 - 145 MG-Stephon rivka-Carmen 130 Work Phone: Urea nitrogen [Mass/Vol] 19 mg/dL 6 - 23 HP-Wusrdaa-Trcla 130 Work Phone: Laboratory - Hematology and Cell countson 06-28-2022 Erythrocyte distribution wid th (RBC) [Ratio] 13.2 % See Below ZU-Jrvcbtv-Jxfnz 130 Work Phone: Comment on above: Reference Range: 11. 5 - 14.5 Hematocrit (Bld) [Volume fraction] 39.2 % S ee Below ZE-Crktqew-Xnuif 130 Work Phone: Comment on above: Reference Range: 36. 0 - 46.0 Hemoglobin (Bld) [Mass/Vol] 13.1 g/dL See Belo w SE-Hwwvnym-Kcugq 130 Work Phone: Comment on above: Reference Range: 12. 0 - 16.0 MCHC (RBC) [Mass/Vol] 33.4 g/dL See Below MG- Surgery-Carmen 130 Work Phone: Comment on above: Reference Range: 32. 0 - 36.0 MCV (RBC) [Entitic vol] 94 fL 80 - 100 M F-Ibjqqth-Uobaj 130 Work Phone: Platelets (Bld) [#/Vol] 166 10*3/uL 150 - 450 VP-Lkjkoqv-Glxrl 130 Work Phone: RBC (Bld) [#/Vol] 4.16 {x10E12/L} See Below MG -Surgery-Carmen 130 Work Phone: Comment on above: Reference Range: 4.0 0 - 5.20 WBC (Bld) [#/Vol] 8.4 10*3/uL 4.4 - 11.3 MG-Stephon rivka-Carmen 130 Work Phone: No Panel Informationon 06-28 Normal XX-Rxtijwn-Pip ja 130 Work Phone: 65 {mL/min/1.73m2} >90 MG-Stephon rivka-Carmen 130 Work Phone: Comment on above: CALCULATIONS OF ESTIMATED GFR ARE PERFOR MED USING THE 2020 CKD-EPI STUDY REFIT EQUATION WITHOUT THE RACE VARIABLE FOR THE IDMS-TRACEABLE CREATININE METHODS.https://jasn.asnjournals.org/content/early/ASN.9179614057 0.0 {/100_WBC} 0.0-0.0 MG-Surgery -Carmen 130 Work Phone: GLUCOSE-POCTon 06-27-2022 Glucose [Mass/Vol] 197 mg/dL High 74 - 99 [facility] Comment on above: Performed By: #### G SHAINA #### [facility] [address] [place] [address] Glucose [Mass/Vol] 129 mg/dL High 74 - 99 [facility] Comment on above: Performed By: #### G SHAINA #### [facility] [address] [place] [address] Laboratory - Chemistry and C hemistry - challengeon 06-27-2022 Glucose [Mass/Vol] 197 mg/dL above high threshold 74 - 99 BJ-Yfylzsz-Htbqd 130 Work Phone: Operative Reports - [facility] [place] Oper[facility] - [facility] [place] PREOPERATIVE DIAGNOSIS: Paraesophageal hernia. POSTOPERATIVE DIAGNOSIS: Paraesophageal hernia. OPERATION/PROCEDURE: 1. Laparoscopic repair of paraesophageal hernia. 2. Intraoperative esophagogastroduodenoscopy. SURGEON: Sergei Murray MD. FERRYBOAT OPERATOR(S): ANESTHESIA: General endotracheal. COMPLICATION: None. INDICATION: The patient is a 76-year-old female with a large incarcerated paraesophageal hernia without evidence of ischemia or obstruction, now taken to the operating room for elective repair after being explained the risks, benefits, alternatives, and complications of surgery. DESCRIPTION OF PROCEDURE: The patient was taken to the operating room and placed on the operative table in supine position. Following induction of general anesthetic, the patient was intubated endotracheally. Time-out was performed per protocol, and she received preoperative IV antibiotics and DVT prophylaxis. Following intubation, the patient was placed in a split-leg position and fully padded and secured. Knox catheter was placed. The endoscope was advanced into the cervical esophagus of normal shape and contour without evidence of inflammatory or neoplastic process. Stomach was entered, and despite multiple maneuvers due to the incarcerated nature of the stomach, the distal aspect of the stomach could not be entered. The stomach was desufflated and the endoscope was maintained in the midesophagus. Abdominal wall was then prepped and draped sterilely. A 5 mm supraumbilical incision was created, and the optical access trocar was used to gain direct entry into the peritoneal cavity. The peritoneal cavity was insufflated with carbon dioxide to a pressure of 15 mmHg. 5 mm ports were then placed in the left and right lateral subcostal region and the self-retaining liver retractor was placed beneath the left lobe of the liver. A 5 mm subxiphoid port was placed and an 11 mm left midclavicular subcostal port was then placed. It should be noted that the patient had extensive intra-abdominal adipose tissue and her BMI was 32. The gastrohepatic ligament was divided up to the level of the right norma. Tissue on the right norma was incised and the hernia sac was grasped. Hernia sac was then removed from the aspects of the mediastinum, starting on the right side and working anteriorly and then over to the left. There was a very large hernia sac with incarcerated omentum and gastric body, fundus, and antrum. After the hernia sac was fully reduced out of the mediastinum, the esophagus was identified and circumferentially dissected and a Maria Del Carmen drain was placed around this. Further dissection of the crura was performed, identifying the left and right crura as well as the junction posteriorly. Further dissection of the esophagus into mediastinum was performed allowing for a 3 to 4 cm segment of the esophagus. Diaphragm was then closed, starting posteriorly with 0 silk sutures placed in intracorporeal fashion. There was minimal tension on the closure and the crura were healthy and approximated without difficulty. Closure was performed up into within 1 cm. At this time, endoscopic evaluation was performed, and the endoscope now easily advanced into the gastric lumen, which was now fully intra-abdominal. There was no evidence of inflammatory or neoplastic process. Endoscope was advanced into the pylorus and into duodenum without evidence of inflammatory or neoplastic process. Retroflexed view showed a Hill grade 1 lower esophageal sphincter without evidence of hernia recurrence. Due to the normal nature of the lower esophageal sphincter, anti-reflux fundoplication was not felt to be indicated. At this time, endoscope was withdrawn after the stomach was desufflated. Maria Del Carmen drain was removed. It should be noted that the area of dissection was placed beneath saline during the EGD and there was no evidence of bubbling. At completion of procedure, there was no evidence of bleeding or viscous or bilious leakage. Maria Del Carmen drain was removed as stated, and the ports were all removed under direct visualization and desufflation after liver retractor was also withdrawn. The left subcostal port site was closed at the fascial level with 0 PDS suture and skin was closed at all sites with subcuticular 4-0 Vicryl suture. 0.5% Marcaine instilled. Dermabond was applied. Instrument and sponge counts were correct x2. The patient was extubated in the operating room and transferred to recovery room in stable condition. Surgeon and surgical forceps fabricator were present throughout the entire procedure. Sergei Murray MD EST EST DICTATION NUMBER: [id number] INTERNAL JOB NUMBER: [id number] CC: Sergei Murray MD Electronic Signatures: Sergei Murray () (Signed on 30-Jun-2022 08:43) Authored Unsigned, Draft (S (more content not included)... [facility] Order Reconciliationon 06-27 Order Reconciliation Page 1 Admission Reconciliation Document Reconciliation Type: Admission requested on behalf of Annika Meadows (Resident) done by Annika Meadows ( (Resident)) Admission - Reconciliation: 27-Jun-2022 14:12 by: Annika Meadows ( (Resident)) Home MedicationsEnteredLast Dose TakenReconciled with current Order Reconciliation Comment/ Additional Information acetaminophen 325 mg oral tablet 2 tab(s) orally every 4 hours, As Needed Acetaminophen Tablet (TYLENOL)DOSE = 650 mg Oral Every 6 Hoursacetaminophen 325 mg oral tablet reconciled with the existing inpatient order Acetaminophen amLODIPine 5 mg oral tablet 1 tab(s) orally once a [id number] amLODIPine (NORVASC) TabletDOSE = 5 mg Oral DailyamLODIPine 5 mg oral tablet continued as the inpatient order amLODIPine (NORVASC) ascorbic acid 100 mg oral tablet 1 tab(s) orally once a [id number] Reviewed and Held aspirin 81 mg oral tablet 1 tab(s) orally once a [id number] Aspirin Enteric Coated Enteric Coated Tablet (ECOTRIN)DOSE = 81 mg Oral Daily aspirin 81 mg oral tablet continued as the inpatient order Aspirin Enteric Coated atorvastatin 10 mg oral tablet 1 tab(s) orally once a [id number] UNKNOWN Atorvastatin Tablet (LIPITOR)DOSE = 10 mg Oral Daily atorvastatin 10 mg oral tablet continued as the inpatient order Atorvastatin azelastine 137 mcg/inh (0.1%) nasal spray 1 spray(s) nasal 2 times a day Reviewed and Held citalopram 20 mg oral tablet 1 tab(s) orally once a [id number] Citalopram (CELEXA) TabletDOSE = 20 mg Oral Dailycitalopram 20 mg oral tablet continued as the inpatient order Citalopram (CELEXA) conjugated estrogens 0.625 mg/g vaginal cream with applicator 1 application vaginal 2 times a week, As [id number] Reviewed and Held cyanocobalamin 100 mcg oral tablet 1 tab(s) orally once a [id number] Reviewed and Held dulaglutide 0.75 mg/0.5 mL subcutaneous solution 0.75 milligram(s) subcutaneous once a day (at bedtime) (Thursday) Reviewed and Held empagliflozin 10 mg oral tablet 1 tab(s) orally once a day (in the morning) [id number] Empagliflozin Tablet (JARDIANCE)DOSE = 10 mg Oral Dailyempagliflozin 10 mg oral tablet continued as the inpatient order Empagliflozin ergocalciferol 1.25 mg (50,000 intl units) oral tablet 1 tab(s) orally once a week (Thursday) Reviewed and Held escitalopram 10 mg oral tablet 1 tab(s) orally once a day 2021 NoLongerTaking hydrOXYzine hydrochloride 25 mg oral tablet 1 tab(s) orally once a day (at bedtime)2021 hydrOXYzine Hydrochloride (ATARAX) TabletDOSE = 25 mg Oral At BedtimehydrOXYzine hydrochloride 25 mg oral tablet continued as the inpatient order hydrOXYzine Hydrochloride (ATARAX) insulin detemir 100 units/mL subcutaneous solution 30 unit(s) subcutaneous once a day (at bedtime)[id number] PM Insulin Detemir (Levemir) Injectable DOSE = 15 unit(s) SubCutaneous At Bedtimeinsulin detemir 100 units/mL subcutaneous solution continued as the inpatient order Insulin Detemir (Levemir) Injectable; insulin detemir 100 units/mL subcutaneous solution continued as the inpatient order Dextrose 50% in Water Injectable; insulin detemir 100 units/mL subcutaneous solution continued as the inpatient order Glucagon Injectable insulin detemir 100 units/mL subcutaneous solution 30 unit(s) subcutaneous once a day (at bedtime)[id number] PM Dextrose 50% in Water Injectable DOSE = 25 gram(s) IntraVenous Push Every 15 Minutes, PRN Blood Glucose 70 mg/dL or LESS & HAS IV accessClinician Notes: IF patient HAS a secure IV access & is Unconscious, Conscious, NPO or Unable to Eat or Drink. Repeat until BG reaches 100 mg/dL or greater. Push 2-3 mL/minuteinsulin detemir 100 units/mL subcutaneous solution continued as the inpatient order Insulin Detemir (Levemir) Injectable; insulin detemir 100 units/mL subcutaneous solution continued as the inpatient order Dextrose 50% in Water Injectable; insulin detemir 100 units/mL subcutaneous solution continued as the inpatient order Glucagon Injectable insulin detemir 100 units/mL subcutaneous solution 30 unit(s) subcutaneous once a day (at bedtime)[id number] PM Glucagon Injectable DOSE = 1 mg IntraMuscular Every 15 Minutes, PRN Blood Glucose 70 mg/dL or LESS & NO IV accessClinician Notes: IF patient DOES NOT have secure IV access & is Unconscious, Conscious, NPO or Unable to Eat or Drink. Repeat until BG reaches 100 mg/dL or greaterinsulin detemir 100 units/mL subcutaneous solution continued as the inpatient order Insulin Detemir (Levemir) Injectable; insulin detemir 100 units/mL subcutaneous solution continued as the inpatient order Dextrose 50% in Water Injectable; insulin detemir 100 units/mL subcutaneous jo (more content not included)... [facility] Patient Profile - Preop v3on 06-27-2022 Patient Profile - Preop v3 Patient Profile - Preop: Initial Info: Patient DemographicsName: BROWN HALE Date: 1945 Address: [address] [place] [address] [place], [place], [address] Primary Phone [phone] How to be AddressedKay Spoken Language PreferredEnglish Stated Reason for Admissionfix stomach Primary Contact Name and Numberdaughter- Brown Limitations on Visitors/Phone Callsnone Medications Brought to Hospitalno General Health: Patient or Family Member Reaction to Anesthesiano previous reaction Blood Avoidance/Restrictionsnone Previous Transfusion Reactionno Health Mgmt: Symptoms/Conditions Managed at Homeendocrine; gastrointestinal; musculoskeletal; cardiovascular; behavioral health Behavioral Health Symptoms/Conditionsdepression Cardiovascular Symptoms/Conditionshypertension Endocrine Symptoms/Conditionsdiabetes Gastrointestinal Symptoms/Conditionsreflux/heartburn Musculoskeletal Symptoms/Conditions CommentRA Barriers to Managing Healthage Relationship/Environ: Lives Withalone Living Arrangementshouse Resource/Environmental Concernsnone Anticipated Transition [place] [facility] Anticipated at Transitionnone Tobacco Use: Tobacco Useno Pre-op Checklist: Procedure Typenissen NPOyes ID Band On Patientpatient ID (name) Consent Signedyes H&P Completepending Anesthesia Assessment Completedpending HCG Urine TestN/A Surgical Site Infection Preventionyes Pain Scales and Managementyes Additional Information: Information Review: Allergies, Home Meds and Significant Events have been Reviewed and Verified with Patient/Familyyes Allergy, Intolerance, Adverse Event: Allergies: Zetia: Drug, Unknown, Active Zocor: Drug, Unknown, Active Significant Events: 27-Jun-2022 AJIT, Right knee replacement,: Past Surgical History, Active 27-Jun-2022 DM: Past Medical History, Active 27-Jun-2022 HTN, RA, GERD: Past Medical History, Active Electronic Signatures: Jessica Hernandez) (Signed 27-Jun-2022 07:34) Authored: Initial Info, General Health, Health Mgmt, Relationship/Environ, Tobacco Use, Pre-op Checklist, Additional Information Last Updated: 27-Jun-2022 07:34 by Jessica Hernandez (BHARAT) [facility] A1C HEMOGLOBINon 06-26-2022 HbA1c (Bld) [Mass fraction] 7.7 % [employer] Other Glucose - FINGER STICKon Glucose [Mass/Vol] 190 mg/dL [employer] Other HbA1c (Bld) [Mass fraction]o n 06-26-2022 A1C HEMOGLOBIN [facility] Other CORONAVIRUS 2019, SCREEN ASY MPTOMATICon 06-25-2022 SARS-CoV-2 (COVID-19) RNA PATTY+probe Ql (Unsp spec) Not detected Normal Not Detected [facility] Comment on above: Result Comment: . This assay is designed to detect the N, ORF1ab and/or S genes of SARS-CoV-2 via nucleic acid amplification. A Negative (NOT DETECTED) result does not preclude 2019-nCoV infection since the adequacy of sample collection and/or low viral burden may result in presence of viral nucleic acids below the clinical sensitivity of this test method. Negative (NOT DETECTED) result should not be used as the sole basis for treatment or other patient management decisions. Rather negative results should be combined with clinical observations, patient history, and epidemiological information to make patient management decisions. Fact sheet for providers: https://www.fda.gov/media/063503/download Fact sheet for patients: https://www.fda.gov/media/683462/download This test has received FDA Emergency Use Authorization (EUA) and has been verified by [facility] ([facility]). This test is only authorized for the duration of time that circumstances exist to justify the authorization of the emergency use of in vitro diagnostic tests for the detection of SARS-CoV-2 virus and/or diagnosis of COVID-19 infection under section 564(b)(1) of the Act, 21 U.S.C. 360bbb-3(b)(1), unless the authorization is terminated or revoked sooner. [facility] is certified under CLIA-88 as qualified to perform high complexity testing. Testing is performed in the [facility] laboratories located at [address] [place] [address]. Performed By: #### G SHAINA #### [address] [place] [address] Covid 19 Resultson SARS-CoV-2 (COVID-19) RNA PATTY+probe Ql (Unsp spec) NEGATIVE COVID-19 Test Coronaviruses are common world-wide and are the cause of many common colds. SARS-COV2 is a new coronavirus that began circulating worldwide in 2019 so we are calling it COVID-19. It has been estimated that four out of five patients with COVID-19 will recover at home without the need for medical attention. Symptoms of COVID-19 may include cough, fever, shortness of breath, loss of taste or smell and other flu-like symptoms including chills, sore muscles, sore throat, and headache. Severe illness is more common in older people and people with other health problems such as high blood pressure, obesity, and immune system problems. If the test is positive, you have COVID-19. You will be contacted by the ordering physicians office and instructed to remain on home isolation, in accordance with CDC guidelines. You may also be contacted by the [facility] to see if any of your close contacts may have been exposed to the virus and need to quarantine. If the test is negative, you likely do not have COVID-19 at this time, but you still may have a different illness that can spread to other people (like Influenza, or the Flu) and could still be at risk for getting COVID-19. We recommend that you stay away from other people to limit the spread of illness until your symptoms are improving and you are fever-free for 24 hours without the use of fever lowering medications such as acetaminophen or ibuprofen. No test is 100% accurate so if you are still concerned you may have COVID-19, talk to your doctor about the need to continue to stay away from others. Medicines Unless your provider told you not to use the following: Acetaminophen (Tylenol and others) is generally safe. Anti-inflammatory medications, such as Ibuprofen (Advil or Motrin) or Naproxen (Aleve) can also be used. Fbjt-gef-zgqbcfh cough and cold medicines can be used according to the instructions on the package. Some udmp-fxv-qvlffxo medicines also contain acetaminophen. Make sure you are not taking more than your recommended dose. For those not hospitalized, there is no specific treatment available for this illness. Antibiotics do not treat Coronaviruses. Follow-Up Follow up with your doctor by scheduling a virtual visit or consider follow-up at one of our urgent care fever clinics. If you are having difficulty breathing, or are very weak and having difficulty standing, this is a medical emergency. Call 911 or have someone take you to the nearest emergency room immediately. If possible, wear a facemask. Additional guidance from the CDC for patients who tested POSITIVE for COVID-19 How to isolate: Isolate yourself in a specific room at home and limit your contact with others. Use a separate bathroom from other members of the household, when possible. Leave home only to get essential medical care. Do not go to work, school or public areas. Avoid using public transportation, ride-sharing, or taxis. Restrict contact with pets and other animals. If you must care for your pet or be around animals while you are sick, wash your hands before and after your interaction and wear a facemask. Make sure that shared spaces in the home have good airflow, such as by an air conditioner or an opened window, weather permitting. Personal Hygiene Procedures: Wear a face mask when in the same room as other people or pets. If a face mask interferes with your breathing, others should wear a mask when sharing space with you. Frequent hand-washing: wash your hands with soap and water for at least 20 seconds. If soap and water are not available, use alcohol-based hand dairy processing supervisor. Avoid touching your eyes, nose, and mouth with unwashed hands. Household Hygiene Procedures: Avoid sharing personal household items such as dishes, glassware, cups, eating utensils, towels or bedding with other people or pets in your home. After use, these items should be washed with soap and hot water. Disinfect all high-touch surfaces every day with antibacterial cleaning solutions such as Lysol wipes, bleach, cleansers, etc. High-touch surfaces include tabletops, doorknobs, bathroom fixtures, toilets, phones, keyboards, tablets and bedside tables. Immediately clean any surfaces that may have blood, poop or body fluids on them, using antibacterial cleaning solutions such as Lysol wipes, bleach, cleansers, etc. If clothing or bedding come into contact with blood, poop or body fluids, they should be washed immediately. Follow the directions on the laundry detergent and clothing labels but hot water is recommended when possible. Stopping home isolation precautions: If possible, consult your doctor before stopping home isolation precautions. According to the CDC, you can discontinue home isolation precautions when you have met both of these criteria: Your fever and respiratory symptoms have been gone for 24 crystal (more content not included)... [facility] CORONAVIRUS 2019, SCREEN ASY MPTOMATICon 06-24-2022 Lab Specimen Source Nasal, Nasopharyngeal [facility] Comment on above: Performed By: #### G SHAINA #### [facility] [address] [place] [address] Donna 04-28-2022 [facility] BROWN [facility]ALE ([id number]) 1945 F [place] Date Time Provider Department 04/28/22 CHARAN ACOSTA During your visit today, we recorded the following information about you: Sandi Blue 04/28/2022 3:48 PM Signed Patient did not show for follow-up today 04/28/22. Allergies As of Date: 04/28/2022 Noted Allergy Reaction RANITIDINE 04/23/2020 14 - Other: See Comments ZETIA (EZETIMIBE) 09/20/2012 16 - Unknown ZOCOR (SIMVASTATIN) 09/20/2012 14 - Other: See Comments Comments: Constipation and headache Date Reviewed: 04/16/2022 Reviewed by: Radha Mccarthy APRN.PALEOLOGY PROFESSOR - Fully Assessed Reason for Visit: Appointment [186] Prescriptions as of 05/19/2022 - TRULICITY 0.75 mg/0.5 mL pnij INJECT 0.75 mg once SUBCUTANEOUSLY once weekly - JARDIANCE 10 mg tablet Take 10 mg by mouth every morning. - atorvastatin (LIPITOR) 20 mg tablet Take 20 mg by mouth once daily. - citalopram (CELEXA) 20 mg tablet Take 20 mg by mouth once daily. - ergocalciferol, vitamin D2, (DRISDOL) 50,000 unit capsule Take 50,000 Units by mouth once each week. - HUMALOG KWIKPEN 100 unit/mL inpn - amLODIPine (NORVASC) 5 mg tablet Take 5 mg by mouth once daily. - hydrOXYzine HCl (ATARAX) 25 mg tablet Take 1 tablet by mouth daily at bedtime. - LEVEMIR FLEXTOUCH 100 unit/mL (3 mL) inpn injection - azelastine (ASTELIN,ASTEPRO) 0.1% nasal spray Use 1 Hewitt in each nostril twice daily. - escitalopram (LEXAPRO) 10 mg tablet Take 1 tablet by mouth once daily. - tolterodine LA (DETROL LA) 4 mg 24 hr capsule Take 4 mg by mouth once daily. - OXYBUTYNIN XL 5 mg 24 hr tablet Take 5 mg by mouth once daily. - lisinopril-hydrochlorothiazide 20-25 mg per tablet Take 1 tablet by mouth once daily. - meloxicam (MOBIC) 7.5 mg tablet Take 1 tablet by mouth once daily. - metFORMIN 500 mg tablet Take 1,000 mg by mouth twice daily. Problem List As Of Date 04/28/2022 Noted Resolved Anemia [D64.9] 09/23/2012 Iron deficiency anemia [D50.9] 10/31/2013 En[facility] Status:[facility] ([facility]) BROWN HALE ([id number]) 1945 F [place] Date Time Provider Department 04/16/22 CHARAN ACOSTA [facility] During your visit today, we recorded the following information about you: Pao Brown MA 04/16/2022 8:53 AM Signed Please sign CBC. Thanks. Pao Brown MA Allergies As of Date: 04/16/2022 Noted Allergy Reaction RANITIDINE 04/23/2020 14 - Other: See Comments ZETIA (EZETIMIBE) 09/20/2012 16 - Unknown ZOCOR (SIMVASTATIN) 09/20/2012 14 - Other: See Comments Comments: Constipation and headache Date Reviewed: 04/16/2022 Reviewed by: Radha Mccarthy APRN.PALEOLOGY PROFESSOR - Fully Assessed Reason for Visit: Lab Orders [6548] Primary Visit Diagnosis:Anemia, unspecified type [D64.9] Order(s):CBC + DIFF [SQCBCDIF] Order #: [id number] FUTURE Prescriptions as of 04/16/2022 - TRULICITY 0.75 mg/0.5 mL pnij INJECT 0.75 mg once SUBCUTANEOUSLY once weekly - JARDIANCE 10 mg tablet Take 10 mg by mouth every morning. - atorvastatin (LIPITOR) 20 mg tablet Take 20 mg by mouth once daily. - citalopram (CELEXA) 20 mg tablet Take 20 mg by mouth once daily. - ergocalciferol, vitamin D2, (DRISDOL) 50,000 unit capsule Take 50,000 Units by mouth once each week. - HUMALOG KWIKPEN 100 unit/mL inpn - amLODIPine (NORVASC) 5 mg tablet Take 5 mg by mouth once daily. - hydrOXYzine HCl (ATARAX) 25 mg tablet Take 1 tablet by mouth daily at bedtime. - LEVEMIR FLEXTOUCH 100 unit/mL (3 mL) inpn injection - azelastine (ASTELIN,ASTEPRO) 0.1% nasal spray Use 1 Hewitt in each nostril twice daily. - escitalopram (LEXAPRO) 10 mg tablet Take 1 tablet by mouth once daily. - tolterodine LA (DETROL LA) 4 mg 24 hr capsule Take 4 mg by mouth once daily. - OXYBUTYNIN XL 5 mg 24 hr tablet Take 5 mg by mouth once daily. - lisinopril-hydrochlorothiazide 20-25 mg per tablet Take 1 tablet by mouth once daily. - meloxicam (MOBIC) 7.5 mg tablet Take 1 tablet by mouth once daily. - metFORMIN 500 mg tablet Take 1,000 mg by mouth twice daily. Problem List As Of Date 04/16/2022 Noted Resolved Anemia [D64.9] 09/23/2012 Iron deficiency anemia [D50.9] 10/31/2013 Encounter Status:Closed by RADHA MCCARTHY on 04/16/22 [facility] Initial Visit (General Surge ry)on 03-24-2022 Initial Visit (General Surgery) Diagnoses/Problems Paraesophageal hernia (553.3) (K44.9) Orders Paraesophageal hernia Follow-up PRN Outpatient Follow-up Status: Active Requested for: [id number] Ordered Stat;For: Paraesophageal hernia; Ordered By: Sergei Murray Performed: Due: [id number] Patient Discussion/Summary 76 year old female with history of HTN, DM, HLD, RA, GERD and anxiety who presented to clinic today for large paraesophageal hernia. Patient does not have signs of volvulus or obstruction. No indication for urgent or emergent repair. Her main symptom is respiratory. Laparoscopic paraesophageal hernia repair was discussed in detail with patient and her daughter. The risk of bleeding and infection of surgery, injury to surrounding structures, converting to open surgery was discussed. Risks of hernia recurrence, dysphagia, gas bloat, increased flatulence, and the risk of non-resolution of the respiratory symptom was also discussed as patient reportedly has normal lung function and the hernia may not be the reason for shortness of breath. Extra-abdominal risks including ammonia myocardial infarction, DVT, stroke, and were also explained as small risks as well as the risk of coronavirus infection. Patient and daughter expressed understanding. All questions were answered to satisfaction. Patient wishes to proceed with surgery and will be scheduled electively for laparoscopic paraesophageal hernia repair with toupet fundoplication. Patient seen and discussed with Dr. Murray. Dino Do MD PGY2 General Surgery COVID-19 Risk Consent for: Laparoscopic paraesophageal hernia repair Provider Impressions 76 year old female with history of HTN, DM, HLD, RA, GERD and anxiety who presented to clinic today for large paraesophageal hernia. Patient does not have signs of volvulus or obstruction. No indication for urgent or emergent repair. Her main symptom is respiratory. Laparoscopic paraesophageal hernia repair was discussed in detail with patient and her daughter. The risk of bleeding and infection of surgery, injury to surrounding structures, converting to open surgery was discussed. Risks of hernia recurrence, dysphagia, gas bloat, increased flatulence, and the risk of non-resolution of the respiratory symptom was also discussed as patient reportedly has normal lung function and the hernia may not be the reason for shortness of breath. Extra-abdominal risks including ammonia myocardial infarction, DVT, stroke, and were also explained as small risks as well as the risk of coronavirus infection. Patient and daughter expressed understanding. All questions were answered to satisfaction. Patient wishes to proceed with surgery. Patient seen and discussed with Dr. Murray. Dino Do MD PGY2 General Surgery Chief Complaint NPV paraesophageal hernia History of Present Vprmlse19 year old female with history of HTN, DM, HLD, RA, GERD and anxiety who presented to clinic today for large paraesophageal hernia. Patient reports that he had the diagnosis of paraesophageal hernia long time ago when she was diagnosed with EGD. She was relatively asymptomatic at that time and it was monitored without surgical intervention. However in the past 6 month, patient developed worsening shortness of breath especially with exertion. She now feels short of breath after walking a few blocks. It is worse after eating a large meal and she has to rest to let the food go down to breath better. She has to reduce her activities as a result of her symptoms. She had cardiopulmonary work up at outside hospital that has been largely negative per patient. Denies chest pain or abdominal pain. Denies nausea, vomiting or change in bowel movements. She does have history of acid reflux for a long time, which is under control with medication. PMHx: DM, HTN, HLD, RA, GERD, anxiety PSHx: knee replacement, tonsillectomy, hysterectomy and tubal ligation, dental procedure FHx: non contributory SoHx: denies ETOH, smoking, drugs Review of Systems Constitutional: no fever and no chills. Eyes: no loss of vision and no eye pain. ENT: no earache and no nasal discharge. Cardiovascular: chest pressure, but no chest pain. Respiratory: dyspnea and dyspnea during exertion, but no cough and no wheezing. Gastrointestinal: no abdominal pain, no constipation, no vomiting, no nausea. Genitourinary: no dysuria. Musculoskeletal: no muscle weakness. Neurological: no headache and no confusion. Psychiatric: no personality change. Surgical History History of Hysterectomy History of Knee replacement History of Tonsillectomy History of Tubal ligation Family History Family history of malignant neoplasm of breast (V16.3) (Z80.3) Family history of Heart problem Allergies Zetia Recorded By: Estrella Martínez; 03/24/2022 12:30:39 PM Zocor Recorded By: Estrella Martínez; 03/24/2022 12:30:39 PM Current Meds Medication NameInstruction Atorvastatin Calcium 20 MG Oral Tablet Azelastine HCl - 0.1 % Nasal Solut (more content not included)... Normal [facility] or[facility] Tobacco Screening.on 022 Adult depression screening assessment No YX-Hxom[address] Work Phone: Fall risk assessment b) One or more fall s in the last year TP-Lenfbuu-[address] Work Phone: Tobacco use status CPHS b) No M R-Bewmxxa-[address] Work Phone: A1C HEMOGLOBINon 03-12-2022 HbA1c (Bld) [Mass fraction] 7 % [employer] Other Glucose - FINGER STICKon Glucose [Mass/Vol] 86 mg/dL [employer] Other HbA1c (Bld) [Mass fraction]o n 03-12-2022 A1C HEMOGLOBIN [employer] Other A1C HEMOGLOBINon 11-20-2021 HbA1c (Bld) [Mass fraction] 6.6 % [employer] Other Glucose - FINGER STICKon Glucose [Mass/Vol] 93 mg/dL [employer] Other HbA1c (Bld) [Mass fraction]o n 11-20-2021 A1C HEMOGLOBIN [employer] Other A1C HEMOGLOBINon 08-01-2021 HbA1c (Bld) [Mass fraction] 6.4 % [employer] Other Glucose - FINGER STICKon Glucose [Mass/Vol] 112 mg/dL [employer] Other HbA1c (Bld) [Mass fraction]o n 08-01-2021 A1C HEMOGLOBIN [employer] Other Vital Signs Date Time Vital Sign Value Performing Clinician Facility 07-28-2023 10:45-0400 Body height 149.86 cm Kaleigh Segovia Other [employer] Other 07-28-2023 10:45-0400 Body mass index (BMI) [Ratio] 28.74 kg/m2 Kaleigh Segovia Other [employer] Other 07-28-2023 10:45-0400 Body weight 64.55 kg Tondra Mapus Other [employer] Other 07-28-2023 10:45-0400 Diastolic blood pressure 77 mm[Hg] Tondra Mapus Other [employer] Other 07-28-2023 10:45-0400 Respiratory rate 18 /min Tondra Mapus Other [employer] Other 07-28-2023 10:45-0400 SaO2% (BldA) [Mass fraction] 100 % Tondra Mapus Other [employer] Other 07-28-2023 10:45-0400 Systolic blood pressure 144 mm[Hg] Tondra Mapus Other [employer] Other 01-13-2023 09:45-0500 Body height 149.86 cm Tondra Mapus Other [employer] Other 01-13-2023 09:45-0500 Body mass index (BMI) [Ratio] 27.75 kg/m2 Tondra Mapus Other [employer] Other 01-13-2023 09:45-0500 Body weight 62.32 kg Tondra Mapus Other [employer] Other 01-13-2023 09:45-0500 Diastolic blood pressure 79 mm[Hg] Tondra Mapus Other [employer] Other 01-13-2023 09:45-0500 Respiratory rate 18 /min Tondra Mapus Other [employer] Other 01-13-2023 09:45-0500 SaO2% (BldA) [Mass fraction] 99 % Tondra Mapus Other [employer] Other 01-13-2023 09:45-0500 Systolic blood pressure 189 mm[Hg] Tondra Mapus Other [employer] Other 10-07-2022 10:45-0500 Body height 149.86 cm Tondra Mapus Other [employer] Other 10-07-2022 10:45-0500 Body mass index (BMI) [Ratio] 29.02 kg/m2 Tondra Mapus Other [employer] Other 10-07-2022 10:45-0500 Body weight 65.18 kg Tondra Mapus Other [employer] Other 10-07-2022 10:45-0500 Diastolic blood pressure 83 mm[Hg] Tondra Mapus Other [employer] Other 10-07-2022 10:45-0500 Respiratory rate 20 /min Tondra Mapus Other [employer] Other 10-07-2022 10:45-0500 SaO2% (BldA) [Mass fraction] 97 % Tondra Mapus Other [employer] Other 10-07-2022 10:45-0500 Systolic blood pressure 160 mm[Hg] Tondra Mapus Other [employer] Other 09-15-2022 11:45-0500 Body mass index (BMI) [Ratio] 29.5 kg/m2 Homero Enrique Work Phone: TK-Mmnszqf-[address] Work Phone: 09-15-2022 11:45-0500 Body surface area Derived from formula 1.57 m2 Homero Enrique Work Phone: RD-Kbfnzqj-[address] Work Phone: 09-15-2022 11:45-0500 Body temperature 96 [degF] Homero Enrique Work Phone: YM-Acthkyb-[address] Work Phone: 09-15-2022 11:45-0500 Body weight 64.02 kg Homero Enrique Work Phone: LA-Bhgilmz-X[address] Work Phone: 09-15-2022 11:45-0500 Diastolic blood pressure 86 mm[Hg] Homero Enrique Work Phone: UK-Tpldzzl-[address] Work Phone: 09-15-2022 11:45-0500 Heart rate 79 /min Homero Enrique Work Phone: HU-Zmpyexp-Css[address] Work Phone: 09-15-2022 11:45-0500 Systolic blood pressure 137 mm[Hg] Homero Enrique Work Phone: EZ-Ymdmurx-Rsjgk [address] Work Phone: 09-15-2022 11:45-0500 5 1 Homero Enrique Work Phone: ZZ-Cngdxlc-Vtcjq [address] Work Phone: Comment on above: [employer] 08-05-2022 10:45-0400 Body height 149.86 cm Heydi Ye Other [employer] Other 08-05-2022 10:45-0400 Body mass index (BMI) [Ratio] 28.07 kg/m2 Heydi Prettyban Other [employer] Other 08-05-2022 10:45-0400 Body temperature 96.8 [degF] Heydi Prettyban Other [employer] Other 08-05-2022 10:45-0400 Body weight 63.05 kg Heydi Prettyban Other [employer] Other 08-05-2022 10:45-0400 Diastolic blood pressure 74 mm[Hg] Heydi Prettyban Other [employer] Other 08-05-2022 10:45-0400 Respiratory rate 20 /min Heydi Prettyban Other [employer] Other 08-05-2022 10:45-0400 SaO2% (BldA) [Mass fraction] 98 % Heydi Ye Other [employer] Other 08-05-2022 10:45-0400 Systolic blood pressure 114 mm[Hg] Heydi Prettyban Other [employer] Other 07-24-2022 13:37-0400 Body temperature 98.42 [degF] Homero Enrique Other Phone: [facility] 07-24-2022 13:37-0400 Diastolic blood pressure 79 mm[Hg] Homero Enrique Other Phone: [facility] 07-24-2022 13:37-0400 Heart rate 73 /min Homero Enrique Other Phone: [facility] 07-24-2022 13:37-0400 Respiratory rate 21 /min Homero Enrique Other Phone: [facility] 07-24-2022 13:37-0400 SaO2% (BldA) [Mass fraction] 93 % Homero Enrique Other Phone: [facility] 07-24-2022 13:37-0400 Systolic blood pressure 157 mm[Hg] Homero Enrique Other Phone: [facility] 07-19-2022 21:34-0400 Diastolic blood pressure 65 mm[Hg] DO Homero Enrique Work Phone: [facility] 07-19-2022 21:34-0400 Heart rate 96 /min DO Homero Enrique Work Phone: [facility] 07-19-2022 21:34-0400 Inhaled oxygen flow rate 2 L/min DO Homero Enrique Work Phone: [facility] 07-19-2022 21:34-0400 Respiratory rate 20 /min DO Homero Enrique Work Phone: [facility] 07-19-2022 21:34-0400 SaO2% (BldA) [Mass fraction] 96 % DO Homero Enrique Work Phone: [facility] 07-19-2022 21:34-0400 Systolic blood pressure 137 mm[Hg] DO Homero Enrique Work Phone: [facility] 07-19-2022 17:46-0400 Body temperature 98.2 [degF] DO Homero Enrique Work Phone: [facility] 07-19-2022 17:42-0400 Body height 147.32 cm DO Homero Enrique Work Phone: [facility] 07-19-2022 17:42-0400 Body weight 65 kg DO Homero Enrique Work Phone: [facility] 07-17-2022 12:29-0400 Body height 147.32 cm Homero Enrique Work Phone: DN-[address] Work Phone: 07-17-2022 12:29-0400 Body mass index (BMI) [Ratio] 30.72 kg/m2 Homero Enrique Work Phone: AD-Kyqqppb[address] Work Phone: 07-17-2022 12:29-0400 Body surface area Derived from formula 1.6 m2 Homero Enrique Work Phone: UU-Hrueftf[address] Work Phone: 07-17-2022 12:29-0400 Body temperature 97.7 [degF] Homero Enrique Work Phone: ME-Djkdpdp-J[address] Work Phone: 07-17-2022 12:29-0400 Body weight 66.68 kg Homero Enrique Work Phone: BC-Grjbens-[address] Work Phone: 07-17-2022 12:29-0400 Diastolic blood pressure 78 mm[Hg] Homero Enrique Work Phone: OV-Zcenugs-[address]fe[address] Work Phone: 07-17-2022 12:29-0400 Heart rate 63 /min Homero Enrique Work Phone: OL-Dguyszi-[address] Work Phone: 07-17-2022 12:29-0400 Systolic blood pressure 134 mm[Hg] Homero Enrique Work Phone: ZP-Npckhqp-Rzfap [address] Work Phone: 07-17-2022 12:29-0400 6 1 Homero Enrique Work Phone: RU-Ctjndbw-T[address] Work Phone: Comment on above: [employer] 07-01-2022 18:05-0400 Body temperature 98.24 [degF] Homero Enrique Other Phone: [facility] 07-01-2022 18:05-0400 Diastolic blood pressure 80 mm[Hg] Homero Enrique Other Phone: [facility] 07-01-2022 18:05-0400 Heart rate 66 /min Homero Klaus Other Phone: [facility] 07-01-2022 18:05-0400 Respiratory rate 18 /min Homero Klaus Other Phone: [facility] 07-01-2022 18:05-0400 SaO2% (BldA) [Mass fraction] 92 % Homero Klaus Other Phone: [facility] 07-01-2022 18:05-0400 Systolic blood pressure 147 mm[Hg] Homerogunjan Enrique Other Phone: [facility] 07-01-2022 16:13-0400 Body height 149.8 cm Homero Enrique Other Phone: [facility] 07-01-2022 16:13-0400 Body weight 79.5 kg Homero Enrique Other Phone: [facility] 06-26-2022 10:15-0400 Body height 149.86 cm Tondra Mapus Other [employer] Other 06-26-2022 10:15-0400 Body mass index (BMI) [Ratio] 30.78 kg/m2 Tondra Mapus Other [employer] Other 06-26-2022 10:15-0400 Body weight 69.13 kg Tondra Mapus Other [employer] Other 06-26-2022 10:15-0400 Diastolic blood pressure 84 mm[Hg] Tondra Mapus Other [employer] Other 06-26-2022 10:15-0400 Respiratory rate 20 /min Kaleigh Segovia Other [employer] Other 06-26-2022 10:15-0400 SaO2% (BldA) [Mass fraction] 95 % Kaleigh Segovia Other [employer] Other 06-26-2022 10:15-0400 Systolic blood pressure 145 mm[Hg] Kaleigh Segovia Other [employer] Other 03-24-2022 12:20-0400 Body height 144.78 cm Referring Provider Unknown AX-Yfrdski-[address] Work Phone: 03-24-2022 12:20-0400 Body mass index (BMI) [Ratio] 33.16 kg/m2 Referring Provider Unknown VB-Ospjoat-Vpddr [address] Work Phone: 03-24-2022 12:20-0400 Body surface area Derived from formula 1.61 m2 Referring Provider Unknown BH-Ejupduv-[address] Work Phone: 03-24-2022 12:20-0400 Body temperature 97.4 [degF] Referring Provider Unknown AU-Bbmxjcl-N[address] Work Phone: 03-24-2022 12:20-0400 Body weight 69.51 kg Referring Provider Unknown SS-Jfnbuuy-Rzfdp [address] Work Phone: 03-24-2022 12:20-0400 Diastolic blood pressure 77 mm[Hg] Referring Provider Unknown FE-Nbuxiok-Vaf[address] Work Phone: 03-24-2022 12:20-0400 Heart rate 58 /min Referring Provider Unknown CH-Nqqnbpd-Bdzop [address] Work Phone: 03-24-2022 12:20-0400 Systolic blood pressure 150 mm[Hg] Referring Provider Unknown XH-Xkivwrd-Iem[address] Work Phone: 03-24-2022 12:20-0400 2 1 Referring Provider Unknown WK-Ufuvkpr-Tphxq [address] Work Phone: Comment on above: [employer] 03-12-2022 08:45-0400 Body height 149.86 cm Tondra Mapus Other [employer] Other 03-12-2022 08:45-0400 Body mass index (BMI) [Ratio] 30.49 kg/m2 Tondra Mapus Other [employer] Other 03-12-2022 08:45-0400 Body weight 68.49 kg Tondra Mapus Other [employer] Other 03-12-2022 08:45-0400 Diastolic blood pressure 83 mm[Hg] Tondra Mapus Other [employer] Other 03-12-2022 08:45-0400 Respiratory rate 20 /min Tondra Mapus Other [employer] Other 03-12-2022 08:45-0400 SaO2% (BldA) [Mass fraction] 96 % Tondra Mapus Other [employer] Other 03-12-2022 08:45-0400 Systolic blood pressure 137 mm[Hg] Tondra Mapus Other [employer] Other 11-20-2021 15:45-0500 Body height 149.86 cm Tondra Mapus Other [employer] Other 11-20-2021 15:45-0500 Body mass index (BMI) [Ratio] 30.09 kg/m2 Tondra Mapus Other [employer] Other 11-20-2021 15:45-0500 Body weight 67.59 kg Tondra Mapus Other [employer] Other 11-20-2021 15:45-0500 Diastolic blood pressure 89 mm[Hg] Tondra Mapus Other [employer] Other 11-20-2021 15:45-0500 Respiratory rate 20 /min Tondra Mapus Other [employer] Other 11-20-2021 15:45-0500 SaO2% (BldA) [Mass fraction] 95 % Tondra Mapus Other [employer] Other 11-20-2021 15:45-0500 Systolic blood pressure 138 mm[Hg] Tondra Mapus Other [employer] Other 10-14-2021 10:00-0500 Body height 149.86 cm Heydi Prettysandeep Other [employer] Other 10-14-2021 10:00-0500 Body mass index (BMI) [Ratio] 29.89 kg/m2 Heydi Prettysandeep Other [employer] Other 10-14-2021 10:00-0500 Body temperature 96.6 [degF] Heydi Prettyban Other [employer] Other 10-14-2021 10:00-0500 Body weight 67.13 kg Heydi Prettyban Other [employer] Other 10-14-2021 10:00-0500 Diastolic blood pressure 76 mm[Hg] Orional Chaban Other [employer] Other 10-14-2021 10:00-0500 Respiratory rate 20 /min Heydi Prettyban Other [employer] Other 10-14-2021 10:00-0500 SaO2% (BldA) [Mass fraction] Orional Chaban Other [employer] Other 10-14-2021 10:00-0500 Systolic blood pressure 142 mm[Hg] Heydi Chaban Other [employer] Other 09-16-2021 11:30-0500 Body height 149.86 cm Heydi Prettyban Other [employer] Other 09-16-2021 11:30-0500 Body mass index (BMI) [Ratio] 29.49 kg/m2 Heydi Prettyban Other [employer] Other 09-16-2021 11:30-0500 Body temperature 97 [degF] Heydi Prettyban Other [employer] Other 09-16-2021 11:30-0500 Body weight 66.23 kg Heydi Prettyban Other [employer] Other 09-16-2021 11:30-0500 Diastolic blood pressure 76 mm[Hg] Heydi Prettyban Other [employer] Other 09-16-2021 11:30-0500 Respiratory rate 20 /min Heydi Chaban Other [employer] Other 09-16-2021 11:30-0500 SaO2% (BldA) [Mass fraction] Heydi Prettyban Other [employer] Other 09-16-2021 11:30-0500 Systolic blood pressure 128 mm[Hg] Heydi Ye Other [employer] Other 08-01-2021 14:45-0400 Body height 149.86 cm Tondra Mapus Other [employer] Other 08-01-2021 14:45-0400 Body mass index (BMI) [Ratio] 29.49 kg/m2 Tondra Mapus Other [employer] Other 08-01-2021 14:45-0400 Body weight 66.23 kg Tondra Mapus Other [employer] Other 08-01-2021 14:45-0400 Diastolic blood pressure 79 mm[Hg] Tondra Mapus Other [employer] Other 08-01-2021 14:45-0400 Respiratory rate 20 /min Tondra Mapus Other [employer] Other 08-01-2021 14:45-0400 SaO2% (BldA) [Mass fraction] 96 % Tondra Mapus Other [employer] Other 08-01-2021 14:45-0400 Systolic blood pressure 130 mm[Hg] Tondra Mapus Other [employer] Other Encounters Encounter Date Encounter Type Care Provider Facility Start: 10-08-2023 End: 10-08-2023 ambulatory Tondra Mapus Other [employer] Other Start: 10-08-2023 Telephone encounter Tondra Mapus [facility] Start: 09-07-2023 End: 09-08-2023 ambulatory Homero Enrique Facility: [facility] Start: 07-28-2023 (DM) Diabetes Tondra Mapus [facility] Start: 07-28-2023 End: 07-28-2023 ambulatory Homero Enrique [facility] [place] Other Start: 06-02-2023 End: 06-03-2023 ambulatory Homero Enrique Facility: [facility] Start: 05-25-2023 End: 05-25-2023 ambulatory Homero Enrique Facility:[facility] Start: 05-25-2023 End: 05-25-2023 ambulatory DO Homero Enrique Work Phone: [facility] Work Phone: Start: 05-25-2023 End: 05-25-2023 Patient encounter procedure DO Homero Enrique Work Phone: [facility]-Ultrasound [place] Work Phone: Start: 05-14-2023 End: 05-14-2023 ambulatory Homero Enrique Facility:[facility] Start: 05-14-2023 End: 05-14-2023 ambulatory DO Homero Enrique Work Phone: [facility] Work Phone: Start: 05-14-2023 End: 05-14-2023 Patient encounter procedure DO Homero Enrique Work Phone: [facility]-CT Scan [place] Work Phone: Start: 05-04-2023 End: 05-04-2023 ambulatory Homero Maxine Enrique Facility:[facility] Start: 05-01-2023 End: 05-02-2023 ambulatory Homero Maxine Enrique Facility: [facility] Start: 04-27-2023 End: 04-27-2023 ambulatory Tondra Mapus Other [place] Other Start: 04-27-2023 Telephone encounter Tondra Mapus [facility] Start: 04-24-2023 ambulatory [facility] Start: 04-21-2023 Registered Recurring DO Homero Enrique Work Phone: [facility] Work Phone: Start: 04-09-2023 End: 04-09-2023 ambulatory Homero Enrique Facility:[facility] Start: 04-09-2023 End: 04-09-2023 ambulatory DO Homero Enrique Work Phone: [facility] Work Phone: Start: 04-09-2023 End: 04-09-2023 Patient encounter procedure DO Homero Enrique Work Phone: [facility]-Lab [place] Work Phone: Start: 02-24-2023 End: 02-25-2023 ambulatory Homero Enrique Facility: [facility] Start: 02-05-2023 End: 02-05-2023 ambulatory Homero Enrique Facility:[facility] Start: 02-05-2023 End: 02-05-2023 ambulatory DO Homero Enrique Work Phone: [facility] Work Phone: Start: 02-05-2023 End: 02-05-2023 Patient encounter procedure DO Homero Enrique Work Phone: [facility]-XRay [place] Work Phone: Start: 01-13-2023 (DM) Diabetes Tondra Mapus [facility] Start: 01-13-2023 End: 01-13-2023 ambulatory Tondra Mapus Other [employer] Other Start: 01-13-2023 Registered Recurring DO Homero Enrique Work Phone: [facility] Work Phone: Start: 11-24-2022 End: 11-25-2022 ambulatory Homero Enrique Facility:[facility] Start: 10-07-2022 (DM) Diabetes Tondra Mapus [facility] Start: 10-07-2022 End: 10-07-2022 ambulatory Tondra Mapus Other [employer] Other Start: 09-15-2022 Postop follow up vis it related to original px Homero Enrique Work Phone: DG-Jkse[address] Work Phone: Start: 09-15-2022 ambulatory Homero Félix Enrique Fa cility:[id number] Start: 08-13-2022 End: 08-13-2022 ambulatory Tondra Mapus Other [employer] Other Start: 08-13-2022 Telephone encounter Tondra Mapus [facility] Start: 08-06-[address] Garrick Schultz Fac ility:[id number] Start: 08-05-2022 End: 08-05-2022 ambulatory Kamal pEhraim Other [employer] Other Start: 08-05-2022 Office outpatient visit 15 minutes Kamal Ephraim [facility] Start: 07-22-2022 End: 07-24-2022 Evaluation and management of inpatient Homero Enrique Facility:[facility] Start: 07-21-2022 End: 07-24-2022 Evaluation and management of inpatient Sergei Murray [facility] TT09 Rm [id number] Start: 07-19-2022 End: 07-19-2022 Emergency department patient visit DO Homero Enrique Work Phone: [facility]-Emergency Room Start: 07-17-2022 Patient encounter procedure Homero P Klaus Work Phone: AH-[address] Work Phone: Start: 07-17-2022 ambulatory Homero Heard Klaus Fa cility:[id number] Start: 06-27-2022 End: 07-01-2022 Evaluation and management of inpatient Sergei Murray [facility] TT09 Rm [id number] Start: 06-26-2022 (DM) Diabetes Tondra Mapus [facility] Start: 06-26-2022 End: 06-26-2022 ambulatory Tondra Mapus Other [employer] Other Start: 06-26-2022 Registered Recurring DO Homero Enrique Work Phone: [facility] Start: 05-27-2022 ambulatory PCP UNKNOWN Facility:[id number] Start: 05-20-2022 Rx Renewal Referring Prov ider Unknown -[facility] Heart-[address] 250 DO Work Phone: Start: 05-13-2022 End: 05-13-2022 ambulatory Tondra Mapus Other [employer] Other Start: 05-13-2022 Telephone encounter Tondra Mapus [facility] Start: 04-28-2022 Telephone encounter Charan montes MD Work Phone: [facility] Comment on above: Appointment Start: 04-25-2022 End: 04-25-2022 ambulatory Tondra Mapus Other [employer] Other Start: 04-25-2022 Telephone encounter Tondra Mapus [facility] Start: 04-16-2022 Telephone encounter Charan montes MD Work Phone: Hematology/Oncology Comment on above: Lab Orders Start: 03-24-2022 Office outpatient ne w 60 minutes Referring Provider Unknown GS-[address] Work Phone: Start: 03-24-2022 ambulatory PCP UNKNOWN Facility:[id number] Start: 03-12-2022 (DM) Diabetes Tondra Mapus [facility] Start: 03-12-2022 End: 03-12-2022 ambulatory Tondra Mapus Other [employer] Other Start: 02-24-2022 End: 02-24-2022 ambulatory Tondra Mapus Other [employer] Other Start: 02-24-2022 Telephone encounter Tondra Mapus [facility] Start: 01-27-2022 End: 01-27-2022 ambulatory Tondra Mapus Other [employer] Other Start: 01-27-2022 Telephone encounter Tondra Mapus [facility] Start: 11-20-2021 (DM) Diabetes Tondra Mapus [facility] Start: 11-20-2021 End: 11-20-2021 ambulatory Tondra Mapus Other [employer] Other Start: 10-14-2021 End: 10-14-2021 ambulatory Kamal Chaban Other [employer] Other Start: 10-14-2021 Office outpatient visit 25 minutes Kamal Chaban [facility] Start: 10-09-2021 End: 10-09-2021 ambulatory Tondra Mapus Other [employer] Other Start: 10-09-2021 Telephone encounter Tondra Mapus [facility] Start: 09-16-2021 End: 09-16-2021 ambulatory Kamal Chaban Other [employer] Other Start: 09-16-2021 Office outpatient ne w 45 minutes Kamal Chaban [facility] Start: 08-20-2021 Telephone encounter Tondra Mapus [facility] Start: 08-01-2021 (DM) Diabetes Tondra Mapus [facility] Procedures Date Procedure Procedure Detail Performing Clinician Start: 05-25-2023 Ultrasonography of b ilateral kidneys DO Homerogunjan Enrique Work Phone: Start: 05-14-2023 Computed tomography of abdomen and pelvis with contrast DO Homero Enrique Work Phone: Start: 07-22-2022 Urinalysis dipstick W Reflex Microscopic panel - Urine Dakota Z Jodie Start: 04-29-2021 Adult depression scr eening assessment Charan Acosta MD Work Phone: Arthroplasty of knee Referri ng Provider Unknown Hernia repair Referring Prov ider Unknown History of operative procedure on knee Tondra Mapus Other Hysterectomy Referring Provi prasanna Unknown Ligation of fallopian tube R eferring Provider Unknown Tonsillectomy Referring Prov ider Unknown Total colonoscopy Referring Provider Unknown Plan of Treatment Date Care Activity Detail Author Start: 10-09-2028 Urine microalbumin profile DTAP,TDAP,TD (2 - Td or Tdap) [facility] Start: 04-15-2024 DIABETES SCREEN DIABETES SCREEN [facility] Start: 08-21-2022 Patient encounter procedure [facility] Start: 08-21-2022 POV, Provider: Sergei Murray, Status: Pen, Time: 11:00 AM POV, Provider: Sergei Murray, Status: Pen, Time: 11:00 AM DJ-Bdwzyzn-[address] Work Phone: Start: 07-24-2022 FUV, Provider: Garrick Schultz, Status: Pen, Time: 9:40 AM FUV, Provider: Garrick Schultz, Status: Pen, Time: 9:40 AM DW-Ujztxhu-Lsw[address] Work Phone: Start: 07-24-2022 Patient encounter procedure [facility] Cardiology Dahinda Start: 07-24-2022 End: 07-24-2023 Melatonin 3 mg Oral Tablet Daily 1800 ; TabletDOSE = 3 mg Oral At Bedtime, PRN Insomnia Start: 23-Jul-2022 End: 23-Jul-2023 Ordered: 23-Jul-2022 Josue Chen Intent [facility] Start: 07-22-2022 End: 07-23-2023 [facility] Comment on above: IF patient HAS a sec ure IV access & is Unconscious, Conscious, NPO or Unable to Eat or Drink. Repeat until BG reaches 100 mg/dL or greater. Push 2-3 mL/minute. Discontinue Once BG reaches 100 mg/dL or greater. IF patient DOES NOT have secure IV access & is Unconscious, Conscious, NPO or Unable to Eat or Drink. Repeat until BG reaches 100 mg/dL or greater. Discontinue Once BG reaches 100 mg/dL or greater. Start: 07-22-2022 End: 07-23-2023 Promethazine IV Piggy Back 2 5 mg/ NaCL 0.9% Every 6 Hours PRN ; in Sodium Chloride 0.9% 50 mL (PHENERGAN)DOSE = 25 mg Every 6 Hours, PRN NauseaRecommended Infusion Time: 15 minute(s)Clinician Notes: 2nd line to camelia Start: 22-Jul-2022 End: 22-Jul-2023 Ordered: 22-Jul-2022 Dakota Feliciano Intent Comments: 2nd line to [facility] Comment on above: [facility] Start: 07-19-2022 [facility] Work Phone: Start: 07-19-2022 Computed tomography of abdomen and pelvis with contrast CT abdomen pelvis w con [facility] Start: 07-19-2022 CT Abdomen and Pelvi s W contrast IV [facility] Work Phone: Start: 07-10-2022 Influenza vaccination C [facility] Start: 07-01-2022 End: 07-02-2023 Potassium Chloride Powder Packet ; (K-TOMMY)DOSE = 20 mEq Oral Once Start: 01-Jul-2022 End: 01-Jul-2023 Ordered: 01-Jul-2022 Charan Jones Intent [facility] Start: 06-27-2022 End: 06-28-2023 Labetalol Injectable 20 mg IntraVenous Push Once ; (TRANDATE)DOSE = 20 mg IntraVenous Push Every 4 Hours, PRN Administer for SBP > 180 and HR > 60 Start: 27-Jun-2022 End: 27-Jun-2023 Ordered: 27-Jun-2022 Karlos Howard Intent [facility] Start: 06-27-2022 End: 06-28-2023 [facility] Comment on above: IF patient HAS a sec ure IV access & is Unconscious, Conscious, NPO or Unable to Eat or Drink. Repeat until BG reaches 100 mg/dL or greater. Push 2-3 mL/minute. Discontinue Once BG reaches 100 mg/dL or greater. IF patient DOES NOT have secure IV access & is Unconscious, Conscious, NPO or Unable to Eat or Drink. Repeat until BG reaches 100 mg/dL or greater. Discontinue Once BG reaches 100 mg/dL or greater. Start: 05-27-2022 FUV, Provider: Garrick Schultz, Status: Chacho, Time: 11:00 AM FUV, Provider: Garrick Schultz, Status: Chacho, Time: 11:00 AM [id number] Work Phone: Start: 04-29-2022 Adult depression screening assessment DEPRESSION SCREENING [facility] Start: 04-21-2022 End: 06-21-2022 CBC W Auto Differential panel - Blood CBC + DIFF Lab Routine Anemia, unspecified type Expected: 04/21/2022, Expires: 06/21/2022 [facility] Work Phone: Comment on above: Expected: 04/21/2022 , Expires: 06/21/2022 Start: 11-09-2021 ADVANCE DIRECTIVE DISCUSSION ADVANCE DIRECTIVE DISCUSSION [facility] Start: 06-02-2021 COVID-19 VACCINE (3 - Booster for Pfizer series) COVID-19 VACCINE (3 - Booster for Pfizer series) [facility] Start: 06-12-2020 SHINGRIX VACCINE (2 of 3) SHINGRIX VACCINE (2 of 3) [facility] Start: 09-06-2014 PNEUMOCOCCAL: 65+ (2 - PCV) PNEUMOCOCCAL: 65+ (2 - PCV) [facility] Start: 2008 BONE DENSITY BONE DENSITY [facility] Start: 1961 HEPATITIS C SCREENING HEPATITIS C [facility] Bacteria identified in Urine by Culture [facility] Bacterial cytolethal distending toxin cdt gene [Presence] in Unspecified specimen by PATTY with probe detection [facility] Work Phone: Patient Education Diarrhea, Adul t ED Nausea and Vomiting, Adult ED [facility] Work Phone: Patient referral [facility] Work Phone: [facility] Immunizations Immunization Date Immunization Notes Care Provider [facility] 07-23-2022 influenza, high dose seasonal, preservative-free Homero Enrique Other Phone: [facility] 07-23-2022 pneumococcal polysaccharide vaccine, 23 valent Homero Enrique Other Phone: [facility] 10-15-2021 COVID-19 Vaccine Moderna - Documentation Purposes Only Kaleigh Segovia Other [facility] [employer] Other 08-15-2021 Fluzone High-Dose Quadrivalent 0.7 ML Intramuscular Suspension Prefilled Syringe Homero Enrique Work Phone: [id number] Work Phone: 01-07-2021 influenza virus vaccine, unspecified formulation Referring Provider Unknown [facility] 250 DO Work Phone: 01-07-2021 pneumococcal polysaccharide vaccine, 23 valent Referring Provider Unknown [facility] 250 DO Work Phone: 01-03-2021 COVID-19 Vaccine Pfi zer - Documentation Purposes Only Kaleigh Segovia Other [facility] 12-31-2020 Pfizer-BioNTech COVID-19 Vacc 30 MCG/0.3ML Intramuscular Suspension Referring Provider Unknown [facility] 250 DO Work Phone: 12-13-2020 COVID-19 Vaccine Pfi zer - Documentation Purposes Only Temoandrea Juliette Other [facility] 04-17-2020 zoster vaccine recombinant Charan Acosta MD Work Phone: [facility] 04-17-2020 zoster vaccine, live Charan stockton MD Work Phone: [facility] 12-06-2019 zoster vaccine recombinant Charan Acosta MD Work Phone: [facility] 12-06-2019 zoster vaccine, live Charan stockton MD Work Phone: [facility] 08-30-2019 influenza, high dose seasonal, preservative-free Charan Acosta MD Work Phone: [facility] 10-09-2018 tetanus toxoid, redu shirley diphtheria toxoid, and acellular pertussis vaccine, adsorbed Charan Acosta MD Work Phone: [facility] 10-24-2015 influenza, seasonal, injectable Tondra Mapus Other [facility] 08-17-2014 influenza, injectabl e, quadrivalent, preservative free Charan Acosta MD Work Phone: [facility] 09-06-2013 influenza virus vaccine, unspecified formulation Charan Acosta MD Work Phone: [facility] 09-06-2013 pneumococcal polysaccharide vaccine, 23 valent Charan Acosta MD Work Phone: [facility] 12-18-2010 pneumococcal polysaccharide vaccine, 23 valent Tondra Mapus Other [facility] 04-11-2004 tetanus toxoid, adsorbed Charan Acosta MD Work Phone: [facility] Payers Date Payer Category Payer Unknown 2018 Self-pay [id number] 2010 Blue Cross Blue Shield [id number] 2009 Unknown [employer] BLUE CARD PPO OOS [id number] 2009-Present [phone] [address] [place] [address] PPO [id number] 2008 Medicare MEDICARE MEDICAR E A AND B [id number] 2008-Present [phone] [id number] [place] [id number] Medicare [id number] 2008 Medicare [id number] 1943 Unknown [id number] 2.16.840.1.574161.3.579.2. 356 1943 Unknown [id number] 2.16.840.1.576040.3.579.2. 356 1943 Unknown [id number] 2.16.840.1.117748.3.579.2. 356 1943 Unknown [id number] 2.16.840.1.758470.3.579.2. 356 1943 Unknown [id number] 2.16.840.1.767453.3.579.2. 356 1943 Unknown [id number] 2.16.840.1.369119.3.579.2. 356 1943 Unknown [id number] 2.16.840.1.524228.3.579.2. 356 1943 Unknown [id number] 2.16.840.1.436704.3.579.2. 718 1943 Unknown [id number] 2.16.840.1.632084.3.579.2. 718 1943 Unknown [id number] 2.16.840.1.515901.3.579.2. 718 1943 Unknown [id number] 2.16.840.1.796475.3.579.2. 718 1943 Unknown [id number] 2.16.840.1.744735.3.579.2. 718 1943 Unknown [id number] 2.16.840.1.563957.3.579.2. 71 1943 Unknown [id number] 2.16.840.1.592383.3.579.2. 718 Unknown [id number] 2.16.840.1.766128.3.579.2. 531 Unknown [id number] 2.16.840.1.089969.3.579.2. 531 Unknown [id number] 2.16.840.1.411273.3.579.2. 531 Unknown [id number] 2.16.840.1.416770.3.579.2. 531 Unknown [id number] 2.16.840.1.144270.3.579.2. 531 Social History Date Type Detail Facility Start: 09-23-2012 End: 07-19-2022 Tobacco smoking status NHIS Never smoked tobacco [facility] Start: 09-23-2012 Tobacco use and exposure Smokeless tobacco non-user [facility] Start: 04-29-2021 Alcohol intake Current drinke r of alcohol (finding) [facility] Start: 09-23-2012 History SDOH Alcohol Comment rarely [facility] Start: 1945 Sex Assigned At Not on file [facility] Sex Assigned At Sex Assigned At [facility] [employer] Other Caffeine use Caffeine use [facility] Work Phone: Comment on above: 1 Coke 1 bottle of t ea daily; Tobacco smoking consumption unknown [facility] Start: 1945 Sex Assigned At Female [facility] Medical Equipment Procedure Code Equipment Code Equipment Origin al Text Equipment Identifier Dates Start: 07-27-2017 Functional Status Date Assessment Result Facility Functional observable [facility] Mental Status Date Assessment Result Facility 07-23-2022 Cognitive functi ons [id number] [facility] 06-30-2022 Cognitive functi ons [id number] [facility] Clinical Notes 08-01-2021 to 07-28-2023 Note Date & Type Note Facility 07-28-2023 Evaluation note Encounter Date Diagnosis Assessment Notes Jul, Dietary counseling and surveillance (ICD-10 - Z71.3) Heart healthy diet material was printed Jul, Type 2 diabetes mellitus (ICD-10 - E11.9) Type 2 diabetes material was printed 1. Uncontrolled, a Type 2 diabetes with A1c of 7.7% 2. Blood glucose levels above target. Recommend pt increase levemir from 28 to 30 units qhs. Discussed with pt cgm, pt agreeable for order dexcom g7 sent to [facility]. Reviewed target glucose fasting am/meal to meal 100/150; bedtime 120/180. Reviewed with pt how to titrate basal insulin according to fasting am. Glucose. Reviewed with pt when she gets cgm, she will need to schedule apt with hospital educator for instructions on use/application. Pt verbalizes understanding. 3. Patient is alert, oriented and receptive to making changes or counseling. Notes: Seen for an assessment of current glucose pattern, changes in treatment plan, with this time spent in counseling and coordination of care related to diabetes, risks, and benefits of treatment, medications, and side effects. TOPICS REVIEWED: 1. Time was spent reviewing: a. Basic concepts of diabetes, progressive beta cell , concepts of basal/bolus/berna ective insulin requirements. Basal: The goal is fasting blood glucose of 90-130mg. IF fasting blood glucose starts to run under 100mg 3x's/ week, decrease dose by 10%. Bolus: The goal is to hold the blood glucose level steady meal to meal. If pt. is going to have increased physical activity after a meal, decrease the schedule meal dose prior to the activity by 30-50%. If pt. skips a meal do not take this dose. Correction: The goal is to correct an elevated glucose back into the 100-150mg range b. Nutrition: Concepts of healthy diet, encouraged to decrease saturated fat in diet and increase non-starchy vegetables and fruits in diet. BMI: Pt. needs to select one small change to decrease caloric intake or increase physical activity to help decrease weight. c. Correct treatment of hypoglycemia, carry a glucose source at all times on your person, in vehicles, and at bedside. Can use glucose tablets/4, four ounces of pop or juice equal to 15 G of carbohydrate. Blood glucose should be 100 mg/dl or higher when driving. d. ADA glucose goals for age and medical complexity reviewed e. Patient questions addressed 2. Activity/exercis e: Encouraged to start any form of physical activity. Start low level and increase slowly to a minimal goal of 150 minutes/week. Limit activity to what is allowed by other issues such as cardiac, pulmonary or orthopedic restrictions. 3. Standards of care: Reminded to have an annual dilated eye exam, A1C every 3 months, urine testing for microalbumin once/year, check feet daily and report any cuts or sores that do not appear to be healing. 4. Meter: Plan to check blood glucose: Please check blood glucose levels 3 times/day. Back to back meals reveal effectiveness of bolus dosing. 5. [facility]. Contact office if any issues or concerns with patterns of hypoglycemia, hyperglycemia, or diabetes medication issues. 6. Prescriptions: Dexcom g7 book or script editor/sensors sent to [facility]. 7. Prescriptions will not be filled unless you are compliant with follow up appointments or have a follow up appointment scheduled as ordered by your provider. Refills should be requested at the time of your visit. 8. Pt would greatly benefit from half-way personal use of CGM device such as a Dexcom g7 with ability for high/low alarm feature. Pt. currently using insulin injections 1 time/day. A CGM would improve ease of access to glucose results and reduce risk of hypoglcyemia/hyp erglycemia. Jul, Hyperlipidemia (ICD-10 - E78.5) High cholesterol material was printed 04/2023 LDL 65, trig 342 on statin Jul, HTN (hypertension) (ICD-10 - I10) About hypertension material was printed on julienne- uncontrolled- f/u with pcp for further recommendation Jul, senior care current use of insulin (ICD-10 - Z79.4) Jul, BMI 28.0-28.9,adult (ICD-10 - Z68.28) Deciphering the nutrition facts label material was printed 3 pound weight loss from last visit, continue with weight loss efforts [employer] Other 08-21-2023 NoteEntered by Arina Wade RN on June 29, 2023 08:45:50 EDT From: Arina Wade RN To: [id number] Sent: 06/29/2023 08:45:50 EDT Subject: Medication Management Submitted: Complete:amLODIPine (Norvasc 5 mg oral tablet) Signed by Arina Wade RN 06/29/2023 08:45:00 EDT Approved with modifications: amLODIPine (amLODIPine Besylate Oral Tablet 5 MG) TAKE 1 TABLET BY MOUTH EVERY DAY Qty: 30 tab(s) Days Supply: 30 Refills: 3 Substitutions [facility]owed [id number] Signed by Arina Wade RN From: [id number] To: Homero Enrique DO Sent: June 28, 2023 1:02:14 PM CDT Subject: Medication Management Due: June 29, 2023 12:11:08 AM CDT On Hold Pending Signature Drug: amLODIPine (Norvasc 5 mg oral tablet), TAKE 1 TABLET BY MOUTH EVERY DAY Quantity: 30 tab(s) Days Supply: 30 Refills: 0 Substitutions Allowed Notes from Pharmacy: Dispensed Drug: amLODIPine (amLODIPine 5 mg oral tablet), TAKE 1 TABLET BY MOUTH EVERY DAY Quantity: 30 tab(s) Days Supply: 30 Refills: 0 Substitutions [id number] note* Encounter Date Diagnosis Assessment Notes Treatment Notes Treatment Clinical Notes Apr, Type 2 diabetes mellitus (ICD-10 - E11.9) [employer] Other 03-07-2023 Evaluation note* Encounter Date Diagnosis Assessment Notes Treatment Notes Treatment Clinical Notes Jan, Dietary counseling and surveillance (ICD-10 - Z71.3) Heart healthy diet material was printed Jan, Type 2 diabetes mellitus (ICD-10 - E11.9) Type 2 diabetes material was printed Li Hyde 01/13/2023 10:11:08 AM >4oz apple juice given for bs of 92 Li Hyde 01/13/2023 10:57:07 AM >Repeat blood sugar is 121 1. Controlled, a Type 2 diabetes with A1c of 6.8% 2. Blood glucose levels stable, no changes. 3. Patient is alert, oriented and receptive to making changes or counseling. Notes: Seen for an assessment of current glucose pattern, changes in treatment plan, with this time spent in counseling and coordination of care related to diabetes, risks, and benefits of treatment, medications, and side effects. TOPICS REVIEWED: 1. Time was spent reviewing: a. Basic concepts of diabetes, progressive beta cell , concepts of basal/bolus/correct maggi insulin requirements. Basal: The goal is fasting blood glucose of 90-130mg. IF fasting blood glucose starts to run under 100mg 3x's/ week, decrease dose by 10%. Bolus: The goal is to hold the blood glucose level steady meal to meal. If pt. is going to have increased physical activity after a meal, decrease the schedule meal dose prior to the activity by 30-50%. If pt. skips a meal do not take this dose. Correction: The goal is to correct an elevated glucose back into the 100-150mg range b. Nutrition: Concepts of healthy diet, encouraged to decrease saturated fat in diet and increase non-starchy vegetables and fruits in diet. BMI: Pt. needs to select one small change to decrease caloric intake or increase physical activity to help decrease weight. c. Correct treatment of hypoglycemia, carry a glucose source at all times on your person, in vehicles, and at bedside. Can use glucose tablets/4, four ounces of pop or juice equal to 15 G of carbohydrate. Blood glucose should be 100 mg/dl or higher when driving. d. ADA glucose goals for age and medical complexity reviewed e. Patient questions addressed 2. Activity/exercise: Encouraged to start any form of physical activity. Start low level and increase slowly to a minimal goal of 150 minutes/week. Limit activity to what is allowed by other issues such as cardiac, pulmonary or orthopedic restrictions. 3. Standards of care: Reminded to have an annual dilated eye exam, A1C every 3 months, urine testing for microalbumin once/year, check feet daily and report any cuts or sores that do not appear to be healing. 4. Meter: Plan to check blood glucose: Please check blood glucose levels 3 times/day. Back to back meals reveal effectiveness of bolus dosing. 5. [facility]. Contact office if any issues or concerns with patterns of hypoglycemia, hyperglycemia, or diabetes medication issues. 6. Prescriptions: Will call when needed. 7. Prescriptions will not be filled unless you are compliant with follow up appointments or have a follow up appointment scheduled as ordered by your provider. Refills should be requested at the time of your visit. Jan, Hyperlipidemia (ICD-10 - E78.5) High cholesterol material was printed 02/2022 LDL 89, trig 208 on statin Jan, HTN (hypertension) (ICD-10 - I10) About hypertension material was printed on julienne- uncontrolled- f/u with pcp for further recommendation Jan, senior care current use of insulin (ICD-10 - Z79.4) Jan, BMI 27.0-27.9,adult (ICD-10 - Z68.27) Deciphering the nutrition facts label material was printed 6 pound weight loss from last visit continue with weight loss efforts Jan, CKD (chronic kidney disease) (ICD-10 - N18.9) [employer] Other 11-29-2022 Evaluation note* Encounter Date Diagnosis Assessment Notes Treatment Notes Treatment Clinical Notes Sep, Dietary counseling and surveillance (ICD-10 - Z71.3) Heart healthy diet material was printed Sep, Type 2 diabetes mellitus (ICD-10 - E11.9) Type 2 diabetes material was printed 1. Controlled, a Type 2 diabetes with A1c of 6.1% 2. Blood glucose levels improved. A1c of 06/26/22 7.7% and today 6.1%. Recommend reducing levemir from 30 to 28 units qhs. Pt verbalizes understanding. 3. Patient is alert, oriented and receptive to making changes or counseling. Notes: Seen for an assessment of current glucose pattern, changes in treatment plan, with this time spent in counseling and coordination of care related to diabetes, risks, and benefits of treatment, medications, and side effects. TOPICS REVIEWED: 1. Time was spent reviewing: a. Basic concepts of diabetes, progressive beta cell , concepts of basal/bolus/correc tive insulin requirements. Basal: The goal is fasting blood glucose of 90-130mg. IF fasting blood glucose starts to run under 100mg 3x's/ week, decrease dose by 10%. Bolus: The goal is to hold the blood glucose level steady meal to meal. If pt. is going to have increased physical activity after a meal, decrease the schedule meal dose prior to the activity by 30-50%. If pt. skips a meal do not take this dose. Correction: The goal is to correct an elevated glucose back into the 100-150mg range b. Nutrition: Concepts of healthy diet, encouraged to decrease saturated fat in diet and increase non-starchy vegetables and fruits in diet. BMI: Pt. needs to select one small change to decrease caloric intake or increase physical activity to help decrease weight. c. Correct treatment of hypoglycemia, carry a glucose source at all times on your person, in vehicles, and at bedside. Can use glucose tablets/4, four ounces of pop or juice equal to 15 G of carbohydrate. Blood glucose should be 100 mg/dl or higher when driving. d. ADA glucose goals for age and medical complexity reviewed e. Patient questions addressed 2. Activity/exercise: Encouraged to start any form of physical activity. Start low level and increase slowly to a minimal goal of 150 minutes/week. Limit activity to what is allowed by other issues such as cardiac, pulmonary or orthopedic restrictions. 3. Standards of care: Reminded to have an annual dilated eye exam, A1C every 3 months, urine testing for microalbumin once/year, check feet daily and report any cuts or sores that do not appear to be healing. 4. Meter: Plan to check blood glucose: Please check blood glucose levels 3 times/day. Back to back meals reveal effectiveness of bolus dosing. 5. [facility]. Contact office if any issues or concerns with patterns of hypoglycemia, hyperglycemia, or diabetes medication issues. 6. Prescriptions: Jim Lund: Trkasiity 1.5mg sent 7. Prescriptions will not be filled unless you are compliant with follow up appointments or have a follow up appointment scheduled as ordered by your provider. Refills should be requested at the time of your visit. 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) Sep, BMI 29.0-29.9,adult (ICD-10 - Z68.29) Deciphering the nutrition facts label material was printed 9 pound weight loss from last visit continue with weight loss efforts [employer] Other 09-27-2022 Evaluation note* Encounter Date Diagnosis Assessment Notes Treatment Notes Treatment Clinical Notes Jul, Large hiatal hernia (ICD-10 - K44.9) Jul, Mild persistent reactive airway disease without complication (ICD-10 - J45.30) Discontinue oxygen therapy, call us if worsening dyspnea or cough otherwise follow-up as needed [employer] Other 09-15-2022 NoteSend Summary: Discharge Summary Providers: Provider RoleProvider Name [facility]lamide Wiseman [facility] Homero Jiang Jeffrey Note Recipients: [facility], Homero Chan, - [phone] [] Olamide Lorenzo MD Discharge: Summary: Admission Date: .21-Jul-2022 19:51:00 Discharge Date: 24-Jul-2022 Attending Physician at Discharge: Sergei Murray Admission Reason: Esophageal anastomotic leak Final Discharge Diagnoses: Body mass index (BMI) of 35.0 to 35.9 in adult, Body mass index [BMI] 36.0-36.9, adult, Esophageal anastomotic leak Procedures: none Condition at Discharge: Satisfactory Disposition at Discharge: Home Health Care - Resumed Vital Signs: T PRBPMAPSpO2 Value36.18680898/7993% Date/Time07/24 11: 11: 11: 11: 11:37 Range(36.5C - 37.6C ) (66 - 96 ) (17 - 21 ) (144 - 198 )/ (79 - 94 ) (90% - 94% ) Highest temp of 37.6 C was recorded at 07/24 8:17 Date: Weight/Scale Type:Height: 22-Jul-2022 09:1865.3 kg / jkmbujii627.8 cm Physical Exam: Constitutional: NAD, AAO, lying comfortably in bed Eyes: EOMI ENMT: MMM Head/Neck: NC/AT Respiratory/Thorax: No conversational dyspnea, on RA Cardiovascular: RRR Gastrointestinal: soft, nondistended, nontender, incisions c/d/i Genitourinary: voiding freely Musculoskeletal: MACIEL Extremities: warm and well perfused, no edema Psychological: Appropriate mood and behavior Skin: warm, no cyanosis or jaundice Hospital Course: Ms. Hale is a 76 year-old female with a history of a paraesophageal hernia repair who presented with abdominal pain and nausea after advancing her diet to a soft diet. CT imaging showed some fluid around her repair site; however, esophagram was negative for a leak. The patient was subsequently advanced slowly to a full liquid diet, nausea was controlled with around the clock zofran, and patient's symptoms improved. The patient ambulated without assistance, abdominal pain was controlled. Once the patient was tolerating her nutritional requirements she was discharged home with resumption of home care on a full liquid diet with instructions for follow-up in the outpatient surgery clinic. Immunizations: Immunizations: 23-Jul-2022 .Influenza- Influenza Virus: Immunizations, 23-Jul-2022 Pneumonia- Pneumococcal polysaccharide vaccine: Immunizations, 23-Jul-2022 Discharge Information: and Continuing Care: Lab Results - Pending: None Radiology Results - Pending: None Discharge Instructions: Activity: activity as tolerated. May shower.. May return to school/work. May drive.. if not taking narcotic pain medicine Nutrition/Diet: Full liquid diet for now Home Care Certification: Home Care Agency: Other (with phone number) [facility] Skilled Disciplines Ordered: PT, OT Home Care Services: Home Care Skilled Service: Rehab (PT/OT/SP eval and treat) Follow Up Appointments: Follow-Up Appointment 01: Physician/Dept/Service: Dr. Murray / General Surgery Reason for Referral: Follow-up appointment post-discharge Call to Schedule in: 1 week Location: [facility] 2100 Discharge Medications: Home Medication azelastine 137 mcg/inh (0.1%) nasal spray - 1 spray(s) nasal 2 times a day citalopram 20 mg oral tablet - 1 tab(s) orally once a day ergocalciferol 1.25 mg (50,000 intl units) oral tablet - 1 tab(s) orally once a week (Thursday) empagliflozin 10 mg oral tablet - 1 tab(s) orally once a day (in the morning) insulin detemir 100 units/mL subcutaneous solution - 30 unit(s) subcutaneous once a day (at bedtime) lisinopril-hydrochlorothiazide 20 mg-25 mg oral tablet - 1 tab(s) orally once a day meloxicam 15 mg oral tablet - 1 tab(s) orally once a day oxybutynin 5 mg/24 hours oral tablet, extended release - 1 tab(s) orally once a day dulaglutide 0.75 mg/0.5 mL subcutaneous solution - 0.75 milligram(s) subcutaneous once a day (at bedtime) (Thursday) metoprolol tartrate 25 mg oral tablet - 0.5 tab(s) orally 2 times a day amLODIPine 5 mg oral tablet - 1 tab(s) orally once a day ascorbic acid 100 mg oral tablet - 1 tab(s) orally once a day cyanocobalamin 100 mcg oral tablet - 1 tab(s) orally once a day aspirin 81 mg oral tablet - 1 tab(s) orally once a day Front wheeled Walker - 1 unit(s) once to use as needed for ambulatory assistance omeprazole 40 mg oral delayed release capsule - 1 cap(s) orally once a day PRN Medication naproxen sodium 220 mg oral tablet - 1 tab(s) orally every 12 hours, As Needed for pain oxyCODONE 5 mg oral tablet - 1 tab(s) orally every 6 hours, As Needed -Pain - Mod (4-6) DNR Status: Code StatusCode Status order at time of discharge: Full Code Attestation: Note Completion: I am a: Resident/Fellow Attending AttestationI reviewed the resident/fellows documentation and discussed (more content not included)...[facility]09-13-2022 NoteClinical Note - Pharmacy v2: Education: Document TopicMedication Education MedicationMeds to Beds: Patient declines Meds to Beds service at discharge. Sources used to confirm home medication list: Patient confirms medications and has up to date medication list. Confirmed with Surescripts and OARRS. High alert medications: insulin detemir- hypoglycemia risk Additional comments: N/A Medication reconciliation complete Please reach out via [employer] for questions Guru Huang, PharmD, PGY1 [facility] pharmacy scheduler [facility] Ambulatory and Retail Services Is This Intervention Medication Reconciliation Relatedyes Time [id number] minutes Additional NotesHome Medications Review Status for Reconciliation: Complete Med Status: Patient Currently Takes Medications Drug Name: azelastine 137 mcg/inh (0.1%) nasal spray Instructions: 1 spray(s) nasal 2 times a day Drug Name: citalopram 20 mg oral tablet Instructions: 1 tab(s) orally once a day Drug Name: ergocalciferol 1.25 mg (50,000 intl units) oral tablet Instructions: 1 tab(s) orally once a week (Thursday) Drug Name: empagliflozin 10 mg oral tablet Instructions: 1 tab(s) orally once a day (in the morning) Drug Name: insulin detemir 100 units/mL subcutaneous solution Instructions: 30 unit(s) subcutaneous once a day (at bedtime) Drug Name: lisinopril-hydrochlorothiazide 20 mg-25 mg oral tablet Instructions: 1 tab(s) orally once a day Drug Name: meloxicam 15 mg oral tablet Instructions: 1 tab(s) orally once a day Drug Name: oxybutynin 5 mg/24 hours oral tablet, extended release Instructions: 1 tab(s) orally once a day Drug Name: dulaglutide 0.75 mg/0.5 mL subcutaneous solution Instructions: 0.75 milligram(s) subcutaneous once a day (at bedtime) (Thursday) Drug Name: metoprolol tartrate 25 mg oral tablet Instructions: 0.5 tab(s) orally 2 times a day Drug Name: amLODIPine 5 mg oral tablet Instructions: 1 tab(s) orally once a day Drug Name: ascorbic acid 100 mg oral tablet Instructions: 1 tab(s) orally once a day Drug Name: cyanocobalamin 100 mcg oral tablet Instructions: 1 tab(s) orally once a day Drug Name: aspirin 81 mg oral tablet Instructions: 1 tab(s) orally once a day Drug Name: Front wheeled Walker Instructions: 1 unit(s) once to use as needed for ambulatory assistance Drug Name: oxyCODONE 5 mg oral tablet Instructions: 1 tab(s) orally every 6 hours, As Needed -Pain - Mod (4-6) Drug Name: omeprazole 40 mg oral delayed release capsule Instructions: 1 cap(s) orally once a day Drug Name: naproxen sodium 220 mg oral tablet Instructions: 1 tab(s) orally every 12 hours, As Needed for pain Allergy: Allergies Summary Allergy Allergen: Zetia Type: Drug Reaction: Other Allergen: Zocor Type: Drug Reaction: Other Electronic Signatures: Guru Huang ([facility]) (Signed 22-Jul-2022 13:49) Authored: Education, Allergy Last Updated: 22-Jul-2022 13:49 by Guru Huang ([facility] 07-22-2022 NoteHistory of Present Illness: HPI: BROWN HALE is a 76 year old Female w/ history of HTN, DM, HLD, RA, GERD and large PEH s/p laparoscopic repair 06/27. Post-operative course was uncomplicated, POD 2 esophagram did not show leak and patient was discharged 07/01 tolerating a FLD w/ plan to advance to soft diet outpatient. She reports that 07/18 she began to experience worsening nausea w/ dry heaves and some small volume emesis with any PO intake. She went to [place] ED 07/[address] scan - she states the plan from that visit was to follow-up with Dr. Murray in clinic this week. Currently endorses L sided abd pain which she states has been present since the surgery. She denies fever/chills, SOB, dysuria. Her daughter reports that although patient has been consuming liquids since the surgery she never consumes more than 20oz per day. PMHx: DM, HTN, HLD, RA, GERD, anxiety PSHx: knee replacement, tonsillectomy, hysterectomy and tubal ligation, dental procedure FHx: non contributory SoHx: denies ETOH, smoking, drugs Social History: Social History: Smoking Statusnever smoker (1) Allergies: Zetia: Other Zocor: Other Medications Prior to Admission: Admission Medication Reconciliation has not been completed for this patient. Objective: Objective Information: T PRBPMAPSpO2 [id number]% Date/Time07/21 19:5607/22 4: 19: 4: 4:34 Range(36.9C - 36.9C ) (89 - 103 ) (16 - 16 ) (180 - 186 )/ (96 - 102 ) (93% - 96% ) Highest temp of 36.9 C was recorded at 07/21 19:56 Physical Exam by System: Constitutional: nad, aox3 Eyes: eomi Head/Neck: nc/at Respiratory/Thorax: unlabored on ra Cardiovascular: rr Gastrointestinal: soft, non-distended, mildly tender left abdomen/epigastrium, incisions well healed Extremities: maex4 Psychological: appropriate Skin: wwp Recent Lab Results: Results: CBC: 07/21/2022 20:45 \ Hgb / \ 16.6 H / WBC Plt 10.4 293 / Hct \ / 47.4 H \ RBC: 5.37 H MCV: 88 Neutrophil %: 71.1 CMP: 07/21/2022 20:45 NA+ Cl- BUN / 137 97 L 37 H / Glucose 151 H K+ HCO3- Creat \ 3.6 21 1.67 H \ \ T Bili / \ 0.9 / AST x ---- x ALT 17 x ---- x 10 / Alk P \ / 94 \ Calcium : 10.4 Anion Gap : 23 H Albumin : 4.5 T Protein : 7.9 Radiology Results: Results: Impression: 1. Postsurgical changes of a hiatal hernia repair with a large loculated rim enhancing fluid collections surrounding the distal esophagus lungs posterior and lateral aspects measuring up to 4.8 cm x 4.3 cm x 4.3 cm and demonstrates a nondependent fat-fluid level. Differential diagnosis includes esophageal leak, thoracic duct injury, infected postoperative collection. After exclusion of esophageal leak with esophagram, recommend further clinical investigation for the other possibilities. 2. Unchanged size of incompletely characterize hypodense lesion in the right kidney measuring 1.7 cm representing a proteinaceous hemorrhage cyst or solid mass. Nonemergent follow-up with renal mass protocol MRI is recommended. 3. Colonic diverticulosis. CT Abdomen and Pelvis with IV Contrast [Jul 22 2022 4:55AM] Assessment and Plan: Assessment: BROWN HALE is a 76 year old Female w/ history of HTN, DM, HLD, RA, GERD and large PEH s/p laparoscopic repair 06/27. Post-operative course was uncomplicated, POD 2 esophagram did not show leak and patient was discharged 07/01 tolerating a FLD w/ plan to advance to soft diet outpatient. Presents now with several days of nausea/emesis with PO intake. CT concerning for esophageal leak. Plan: - Admit to [facility] - NPO - esophagram to assess for leak - cricket denise for nausea - SQH - PPI Josue Cobos MD PGY-2, General Surgery Emergency Room Night Coverage [id number] [facility] [phone] Patient discussed with attending, Dr. Murray and Dr. Maura Jones MD PGY5 [facility] [id number] Attestation: Note Completion: I am a: Resident/Fellow Attending AttestationI saw and evaluated the patient. I personally obtained the kirk and critical portions of the history and physical exam or was physically present for kirk and critical portions performed by the resident/fellow. I reviewed the resident/fellows documentation and discussed the patient with the resident/fellow. I agree with the resident/fellows medical decision making as documented in the note. I personally evaluated the patient [id number] Electronic Signatures: Josue Cobos ( (Resident)) (Signed 22-Jul-2022 06:49) Authored: History of Present Illness, Comorbidities, Social History, Allergies, Medications Prior to Admission, Objective, Assessment and Plan, Note Completion Olamide Lorenzo) (Signed 23-Jul-2022 20:20) Authored: Note Complet (more content not included)...[facility] 07-01-2022 NoteSend Summary: Discharge Summary Providers: Provider RoleProvider Name Sergei Guerrero Steven P AttendingMarks, Jeffrey Note Recipients: Homero Enrique DO - [id number] [] Sergei Murray MD - [id number] [Preferred] Discharge: Summary: Admission Date: .27-Jun-2022 06:47:00 Discharge Date: 01-Jul-2022 Attending Physician at Discharge: Sergei Murray Admission Reason: Paraesophageal hiatal hernia Final Discharge Diagnoses: Paraesophageal hiatal hernia Procedures: Date: 27-Jun-2022 13:47:00 Procedure Name: Laparoscopic paraesophageal hernia repair EGD Condition at Discharge: Satisfactory Disposition at Discharge: Home Health Care - New Vital Signs: T PRBPMAPSpO2 [id number]/7391% Date/Time07/01 11: 11: 11: 11: 11:11 Range(36C - 36.6C ) (58 - 76 ) (15 - 18 ) (110 - 150 )/ (66 - 80 ) (89% - 93% ) Date: Weight/Scale Type:Height: 01-Jul-2022 14:1379.5 kg 149.8 cm Physical Exam: Constitutional: NAD, aox3 Head/Neck: nc/at, NC in place Respiratory/Thorax: on 2L NC, unlabored, symmetric chest rise Cardiovascular: rr Gastrointestinal: soft, appropriately tender, incisions c/d/i, mildly distended Extremities: maex4 Psychological: appropriate Skin: wwp Hospital Course: Patient presented for laparoscopic repair of paraesophageal hernia and intraoperative esophagogastroduodenoscopy on 06/27. Patient recovered in PACU and was transferred to [facility]. Knox was removed 06/29 in the morning and patient passed her void check. She had a post-op esophagram without leak and was advanced to a full liquid diet. She continued to tolerate her diet and was seen by PT. PT recommended home with home health care and a two wheeled walker. Patient continued to require oxygen by nasal canula and showed need for 2L NC on walking pulse oximetry test. Patient was stable and tolerated activity. Patient was discharged with home health care on 07/01. Discharge Information: and Continuing Care: Lab Results - Pending: None Radiology Results - Pending: Xray Upper GI with KUB at 28-Jun-2022 10:00:00 Discharge Instructions: Activity: activity as tolerated. May not shower until follow-up visit. May not drive until follow-up visit. Nutrition/Diet: full liquids Respiratory: Oxygen: Administer oxygen at 2 via to maintain SpO2% of 92 Home Care Certification: Home Care Agency: Other (with phone number) [facility] Skilled Disciplines Ordered: PT, OT Home Care Services: Home Care Skilled Service: Rehab (PT/OT/SP eval and treat) Follow Up Appointments: Follow-Up Appointment 01: Physician/Dept/Service: Dr. Sergei Murray department of Surgery Reason for Referral: Follow-up Call to Schedule in: 1 week Follow-Up Appointment 02: Physician/Dept/Service: PCP Reason for Referral: Please follow up with your primary care physician in regards to your oxygen status and management Call to Schedule in: 2-3 days Discharge Medications: Home Medication atorvastatin 10 mg oral tablet - 1 tab(s) orally once a day azelastine 137 mcg/inh (0.1%) nasal spray - 1 spray(s) nasal 2 times a day citalopram 20 mg oral tablet - 1 tab(s) orally once a day ergocalciferol 1.25 mg (50,000 intl units) oral tablet - 1 tab(s) orally once a week (Thursday) hydrOXYzine hydrochloride 25 mg oral tablet - 1 tab(s) orally once a day (at bedtime) empagliflozin 10 mg oral tablet - 1 tab(s) orally once a day (in the morning) insulin detemir 100 units/mL subcutaneous solution - 30 unit(s) subcutaneous once a day (at bedtime) lisinopril-hydrochlorothiazide 20 mg-25 mg oral tablet - 1 tab(s) orally once a day meloxicam 15 mg oral tablet - 1 tab(s) orally once a day oxybutynin 5 mg/24 hours oral tablet, extended release - 1 tab(s) orally once a day dulaglutide 0.75 mg/0.5 mL subcutaneous solution - 0.75 milligram(s) subcutaneous once a day (at bedtime) (Thursday) metoprolol tartrate 25 mg oral tablet - 0.5 tab(s) orally 2 times a day amLODIPine 5 mg oral tablet - 1 tab(s) orally once a day ascorbic acid 100 mg oral tablet - 1 tab(s) orally once a day cyanocobalamin 100 mcg oral tablet - 1 tab(s) orally once a day aspirin 81 mg oral tablet - 1 tab(s) orally once a day Front wheeled Walker - 1 unit(s) once to use as needed for ambulatory assistance omeprazole 20 mg oral delayed release tablet - 1 tab(s) orally once a day PRN Medication oxyCODONE 5 mg oral tablet - 1 tab(s) orally every 6 hours, As Needed -Pain - Mod (4-6) conjugated estrogens 0.625 mg/g vaginal cream with applicator - 1 application vaginal 2 times a week, As Needed acetaminophen 325 mg oral tablet - 2 tab(s) orally every 4 hours, As Needed DNR Status: Code StatusCode Status order at time of discharge: Full Code Attestation: Note Completion: I am a: Resident/Fellow Attending AttestationI peg (more content not included)...[facility]08-19-2022 NotePROCEDURE DETAILS Preoperative Diagnosis: Paraesophageal hernia Postoperative Diagnosis: Paraesophageal hernia Surgeon: Dr. Murray Resident/Fellow/Other Consultant Intern: Cass Gaytan Procedure: Laparoscopic paraesophageal hernia repair EGD Anesthesia: General Estimated Blood Loss: 20ml Blood Replaced: None Findings: Large hiatal hernia containing omentum and stomach was reduced Specimens(s) Collected: no, Complications: None IV Fluids: 1200ml crystalloid; 250ml 5% albumin Urine Output: 150ml Drains and/or Catheters: Knox Additional Details: Plan: - CLD - esophagram in AM - remove Knox tomorrow Patient Returned To/Condition: Extubated to PACU Attestation: Note Completion: Attending AttestationI was present for the entire procedure I am a:Resident/Fellow Electronic Signatures: Annika Meadows (Resident)) (Signed 27-Jun-2022 13:52) Authored: Post-Operative Note, Chart Review, Note Completion Sergei Murray) (Signed 27-Jun-2022 15:01) Authored: Note Completion Co-Signer: Post-Operative Note, Chart Review, Note Completion Last Updated: 27-Jun-2022 15:01 by Sergei Murray)[facility]08-19-2022 NoteClinical Note - Pharmacy v2: Education: Document TopicMedication Education MedicationMeds to Beds: Patient accepts Meds to Beds service at discharge, please send prescriptions to [facility]. Sources used to confirm home medication list: Patient interview/ Chart review High alert medications: Levemir hypoglycemia risk/ Citalopram- QT prolonging Additional comments: Patient states there are multiple medications she has not been taking recently due to forgetting to refill at her pharmacy ([facility]) Medication reconciliation complete Please reach out via [employer] for questions Gissell Araujo, LuluD, PGY1 [facility] [employer] [facility] Ambulatory and Retail Services Is This Intervention Medication Reconciliation Relatedyes Time Required5 - 10 minutes Additional NotesHome Medications Review Status for Reconciliation: Complete Med Status: Patient Currently Takes Medications Drug Name: atorvastatin 10 mg oral tablet Instructions: 1 tab(s) orally once a day Drug Name: azelastine 137 mcg/inh (0.1%) nasal spray Instructions: 1 spray(s) nasal 2 times a day Drug Name: citalopram 20 mg oral tablet Instructions: 1 tab(s) orally once a day Drug Name: tolterodine 4 mg oral capsule, extended release Instructions: 1 cap(s) orally once a day Drug Name: ergocalciferol 1.25 mg (50,000 intl units) oral tablet Instructions: 1 tab(s) orally once a week (Thursday) Drug Name: escitalopram 10 mg oral tablet Instructions: 1 tab(s) orally once a day Drug Name: hydrOXYzine hydrochloride 25 mg oral tablet Instructions: 1 tab(s) orally once a day (at bedtime) Drug Name: empagliflozin 10 mg oral tablet Instructions: 1 tab(s) orally once a day (in the morning) Drug Name: insulin detemir 100 units/mL subcutaneous solution Instructions: 30 unit(s) subcutaneous once a day (at bedtime) Drug Name: lisinopril-hydrochlorothiazide 20 mg-25 mg oral tablet Instructions: 1 tab(s) orally once a day Drug Name: meloxicam 15 mg oral tablet Instructions: 1 tab(s) orally once a day Drug Name: oxybutynin 5 mg/24 hours oral tablet, extended release Instructions: 1 tab(s) orally once a day Drug Name: dulaglutide 0.75 mg/0.5 mL subcutaneous solution Instructions: 0.75 milligram(s) subcutaneous once a day (at bedtime) (Thursday) Drug Name: metoprolol tartrate 25 mg oral tablet Instructions: 0.5 tab(s) orally 2 times a day Drug Name: amLODIPine 5 mg oral tablet Instructions: 1 tab(s) orally once a day Drug Name: ascorbic acid 100 mg oral tablet Instructions: 1 tab(s) orally once a day Drug Name: cyanocobalamin 100 mcg oral tablet Instructions: 1 tab(s) orally once a day Drug Name: acetaminophen 325 mg oral tablet Instructions: 2 tab(s) orally every 4 hours, As Needed Drug Name: aspirin 81 mg oral tablet Instructions: 1 tab(s) orally once a day Drug Name: conjugated estrogens 0.625 mg/g vaginal cream with applicator Instructions: 1 application vaginal 2 times a week, As Needed Allergy: Allergies Summary Allergy Allergen: Zetia Type: Drug Reaction: Other Allergen: Zocor Type: Drug Reaction: Other Electronic Signatures: Gissell Araujo ([facility]) (Signed 27-Jun-2022 11:28) Authored: Education, Allergy Marcus Keita ([facility]) (Signed 27-Jun-2022 14:04) Co-Signer: Education, Allergy Last Updated: 27-Jun-2022 14:04 by Marcus Keita ([facility]08-19-2022 NoteHistory of Present Illness: History Present Illness: Reason for surgery: paraesophageal hernia HPI: Patient is a 76 year old female with history of HTN, DM, HLD, RA, GERD and anxiety who was seen in clinic for large paraesophageal hernia. Patient reports that he had the diagnosis of paraesophageal hernia long time ago when she was diagnosed with EGD. She was relatively asymptomatic at that time and it was monitored without surgical intervention. However in the past 8 month, patient developed worsening shortness of breath especially with exertion. She now feels short of breath after walking a few blocks. It is worse after eating a large meal and she has to rest to let the food go down to breath better. She has to reduce her activities as a result of her symptoms. She had cardiopulmonary work up at outside hospital that has been largely negative per patient. She does have history of acid reflux for a long time, which is under control with medication. PMHx: DM, HTN, HLD, RA, GERD, anxiety PSHx: knee replacement, tonsillectomy, hysterectomy and tubal ligation, dental procedure FHx: non contributory SoHx: denies ETOH, smoking, drugs Allergies: Allergies: Zetia: Unknown Zocor: Unknown Home Medication Review: Home Medications Reviewed: yes Impression/Procedure: Impression and Planned Procedure: Paraesophageal hernia. Plan for laparoscopic paresophageal hernia repair ERAS (Enhanced Recovery After Surgery): ERAS Patient: no Review of Systems: Review of Systems: Constitutional: NEGATIVE: Fever, Chills, Anorexia, Weight Loss, Malaise Eyes: NEGATIVE: Blurry Vision, Drainage, Diploplia, Redness, Vision Loss/ Change Respiratory: POSITIVE: Shortness of Breath; NEGATIVE: Dry Cough, Productive Cough, Hemoptysis, Wheezing Cardiac: POSITIVE: Dyspnea on Exertion; NEGATIVE: Chest Pain, Orthopnea, Palpitations, Syncope Gastrointestinal: NEGATIVE: Nausea, Vomiting, Diarrhea, Constipation, Abdominal Pain Genitourinary: NEGATIVE: Discharge, Dysuria, Flank Pain, Frequency, Hematuria Musculoskeletal: NEGATIVE: Decreased ROM, Pain, Swelling, Stiffness, Weakness Neurological: NEGATIVE: Dizziness, Confusion, Headache, Seizures, Syncope Vital Signs: Temperature C: 36.6 degrees C Temperature F: 97.8 degrees F Heart Rate: 72 beats per minute Respiratory Rate: 18 breath per minute Blood Pressure Systolic: 141 mm/Hg Blood Pressure Diastolic: 67 mm/Hg Physical Exam by System: Constitutional: Well developed, awake/alert/oriented x3, no distress, alert and cooperative Respiratory/Thorax: Patent airways, CTAB, normal breath sounds with good chest expansion, thorax symmetric Cardiovascular: Regular, rate and rhythm, no murmurs, 2+ equal pulses of the extremities, normal S 1and S 2 Gastrointestinal: Nondistended, soft, non-tender, no rebound tenderness or guarding Consent: COVID-19 Consent: COVID-19 Risk ConsentSurgeon has reviewed kirk risks related to the risk of christelle COVID-19 and if they contract COVID-19 what the risks are. Attestation: Note Completion: I am a: Resident/Fellow Attending AttestationI saw and evaluated the patient. I personally obtained the kirk and critical portions of the history and physical exam or was physically present for kirk and critical portions performed by the resident/fellow. I reviewed the resident/fellows documentation and discussed the patient with the resident/fellow. I agree with the resident/fellows medical decision making as documented in the note. I personally evaluated the patient [id number] Electronic Signatures: Annika Meadows (Resident)) (Signed 27-Jun-2022 09:53) Authored: History of Present Illness, Allergies, Home Medication Review, Impression/Procedure, ERAS, Review of Systems, Physical Exam, Consent, Note Completion Sergei Murray) (Signed 27-Jun-2022 09:56) Authored: Note Completion Co-Signer: History of Present Illness, Allergies, Home Medication Review, Impression/Procedure, ERAS, Review of Systems, Physical Exam, Consent, Note Completion Last Updated: 27-Jun-2022 09:56 by Sergei Murray)[facility]08-18-2022 Evaluation note* Encounter Date Diagnosis Assessment Notes Treatment Notes Treatment Clinical Notes Jun, Dietary counseling and surveillance (ICD-10 - Z71.3) Heart healthy diet material was printed Jun, Type 2 diabetes mellitus (ICD-10 - E11.9) Type 2 diabetes material was printed 1. Uncontrolled, a Type 2 diabetes with A1c of 7.7% 2. Blood glucose levels above target. Discussed with pt increasing trulicity from 0.75mg to 1.5mg she is agreeable. Recommend she reduce her levemir down to 24 units tonight before surgery. Pt verbalizes understanding. 3. Patient is alert, oriented and receptive to making changes or counseling. Notes: Seen for an assessment of current glucose pattern, changes in treatment plan, with this time spent in counseling and coordination of care related to diabetes, risks, and benefits of treatment, medications, and side effects. TOPICS REVIEWED: 1. Time was spent reviewing: a. Basic concepts of diabetes, progressive beta cell , concepts of basal/bolus/correc tive insulin requirements. Basal: The goal is fasting blood glucose of 90-130mg. IF fasting blood glucose starts to run under 100mg 3x's/ week, decrease dose by 10%. Bolus: The goal is to hold the blood glucose level steady meal to meal. If pt. is going to have increased physical activity after a meal, decrease the schedule meal dose prior to the activity by 30-50%. If pt. skips a meal do not take this dose. Correction: The goal is to correct an elevated glucose back into the 100-150mg range b. Nutrition: Concepts of healthy diet, encouraged to decrease saturated fat in diet and increase non-starchy vegetables and fruits in diet. BMI: Pt. needs to select one small change to decrease caloric intake or increase physical activity to help decrease weight. c. Correct treatment of hypoglycemia, carry a glucose source at all times on your person, in vehicles, and at bedside. Can use glucose tablets/4, four ounces of pop or juice equal to 15 G of carbohydrate. Blood glucose should be 100 mg/dl or higher when driving. d. ADA glucose goals for age and medical complexity reviewed e. Patient questions addressed 2. Activity/exercise: Encouraged to start any form of physical activity. Start low level and increase slowly to a minimal goal of 150 minutes/week. Limit activity to what is allowed by other issues such as cardiac, pulmonary or orthopedic restrictions. 3. Standards of care: Reminded to have an annual dilated eye exam, A1C every 3 months, urine testing for microalbumin once/year, check feet daily and report any cuts or sores that do not appear to be healing. 4. Meter: Plan to check blood glucose: Please check blood glucose levels 3 times/day. Back to back meals reveal effectiveness of bolus dosing. 5. [facility] Contact office if any issues or concerns with patterns of hypoglycemia, hyperglycemia, or diabetes medication issues. 6. Prescriptions: none needed. Jun, Hyperlipidemia (ICD-10 - E78.5) High cholesterol material was printed 02/2022 LDL 89, trig 208 on statin Jun, HTN (hypertension) (ICD-10 - I10) About hypertension material was printed on julienne Jun, senior care current use of insulin (ICD-10 - Z79.4) Jun, BMI 30.0-30.9,adult (ICD-10 - Z68.30) Deciphering the nutrition facts label material was printed [employer] Other 08-01-2022 History of Present illness Narrative* This is a 77-year-old woman with history of paraesophageal hernia repair in June who represented with concern for fluid collection around the esophagus measuring 5 cm in greatest diameter by 4 x 4 cm. * She had an esophagram done at this time which demonstrated no leak. She was tolerating a full liquid diet and then has slowly been advancing her diet which she has done successfully and is doing wellnow tolerating full diet. * She will occasionally have some general abdominal discomfort and fluctuating bowel habits. She willsometimes be constipated, and then sometimes have some black diarrhea. She does not recall her lastcolonoscopy, but she will follow- up with her industrial engineer. [address] Work Phone: [phone] Miscellaneous Notes* Telephone Encounter - Sandi Cooney Su - 04/28/2022 3:47 PM EDT Patient did not show for follow-up today 04/28/22. [facility]* Encounter Date Diagnosis Assessment Notes Treatment Notes Treatment Clinical Notes Apr, Type 2 diabetes mellitus (ICD-10 - E11.9) [employer] Other 06-08-2022 Miscellaneous Notes* Telephone Encounter - Pao Brown MA - 04/16/2022 8:53 AM EDT Please sign CBC. Thanks. Pao Brown MA documented [facility] Evaluation note* Encounter Date Diagnosis Assessment Notes Treatment Notes Treatment Clinical Notes March, Dietary counseling and surveillance (ICD-10 - Z71.3) Heart healthy diet material was printed March, Type 2 diabetes mellitus (ICD-10 - E11.9) Type 2 diabetes material was printed Glucose 86 during apt pt given 4 oz orange juice 1. Controlled, a Type 2 diabetes with A1c of 7% 2. Blood glucose levels stable. No readings on glucometer today when downloaded. Recommend she check glucose fasting am daily. Reviewed if fasting am glucose <100 3/7 days recommend she reduce levemir from 30 to 27 units qhs. She verbalizes understanding. 3. Patient is alert, oriented and receptive to making changes or counseling. Notes: Seen for an assessment of current glucose pattern, changes in treatment plan, with this time spent in counseling and coordination of care related to diabetes, risks, and benefits of treatment, medications, and side effects. TOPICS REVIEWED: 1. Time was spent reviewing: a. Basic concepts of diabetes, progressive beta cell , concepts of basal/bolus/correc tive insulin requirements. Basal: The goal is fasting blood glucose of 90-130mg. IF fasting blood glucose starts to run under 100mg 3x's/ week, decrease dose by 10%. Bolus: The goal is to hold the blood glucose level steady meal to meal. If pt. is going to have increased physical activity after a meal, decrease the schedule meal dose prior to the activity by 30-50%. If pt. skips a meal do not take this dose. Correction: The goal is to correct an elevated glucose back into the 100-150mg range b. Nutrition: Concepts of healthy diet, encouraged to decrease saturated fat in diet and increase non-starchy vegetables and fruits in diet. BMI: Pt. needs to select one small change to decrease caloric intake or increase physical activity to help decrease weight. c. Correct treatment of hypoglycemia, carry a glucose source at all times on your person, in vehicles, and at bedside. Can use glucose tablets/4, four ounces of pop or juice equal to 15 G of carbohydrate. Blood glucose should be 100 mg/dl or higher when driving. d. ADA glucose goals for age and medical complexity reviewed e. Patient questions addressed 2. Activity/exercise: Encouraged to start any form of physical activity. Start low level and increase slowly to a minimal goal of 150 minutes/week. Limit activity to what is allowed by other issues such as cardiac, pulmonary or orthopedic restrictions. 3. Standards of care: Reminded to have an annual dilated eye exam, A1C every 3 months, urine testing for microalbumin once/year, check feet daily and report any cuts or sores that do not appear to be healing. 4. Meter: Plan to check blood glucose: Please check blood glucose levels 3 times/day. Back to back meals reveal effectiveness of bolus dosing. 5. [facility]. Contact office if any issues or concerns with patterns of hypoglycemia, hyperglycemia, or diabetes medication issues. 6. 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 1. Controlled, a Type 2 diabetes with A1c of 6.6% 2. Blood glucose levels stable. No changes to current diabetes medications today. 3. Patient is alert, oriented and receptive to making changes or counseling. Notes: Seen for an assessment of current glucose pattern, changes in treatment plan, with this time spent in counseling and coordination of care related to diabetes, risks, and benefits of treatment, medications, and side effects. TOPICS REVIEWED: 1. Time was spent reviewing: a. Basic concepts of diabetes, progressive beta cell , concepts of basal/bolus/correc tive insulin requirements. Basal: The goal is fasting blood glucose of 90-130mg. IF fasting blood glucose starts to run under 100mg 3x's/ week, decrease dose by 10%. Bolus: The goal is to hold the blood glucose level steady meal to meal. If pt. is going to have increased physical activity after a meal, decrease the schedule meal dose prior to the activity by 30-50%. If pt. skips a meal do not take this dose. Correction: The goal is to correct an elevated glucose back into the 100-150mg range b. Nutrition: Concepts of healthy diet, encouraged to decrease saturated fat in diet and increase non-starchy vegetables and fruits in diet. BMI: Pt. needs to select one small change to decrease caloric intake or increase physical activity to help decrease weight. c. Correct treatment of hypoglycemia, carry a glucose source at all times on your person, in vehicles, and at bedside. Can use glucose tablets/4, four ounces of pop or juice equal to 15 G of carbohydrate. Blood glucose should be 100 mg/dl or higher when driving. d. ADA glucose goals for age and medical complexity reviewed e. Patient questions addressed 2. Activity/exercise: Encouraged to start any form of physical activity. Start low level and increase slowly to a minimal goal of 150 minutes/week. Limit activity to what is allowed by other issues such as cardiac, pulmonary or orthopedic restrictions. 3. Standards of care: Reminded to have an annual dilated eye exam, A1C every 3 months, urine testing for microalbumin once/year, check feet daily and report any cuts or sores that do not appear to be healing. 4. Meter: Plan to check blood glucose: Please check blood glucose levels 3 times/day. Back to back meals reveal effectiveness of bolus dosing. 5. [facility]. Contact office if any issues or concerns with patterns of hypoglycemia, hyperglycemia, or diabetes medication issues. 6. Prescriptions: Pen needles sent to [facility]. Nov, Hyperlipidemia (ICD-10 - E78.5) High cholesterol material was printed 01/2021 LDL 90, trig 191 on statin Nov, HTN (hypertension) (ICD-10 - I10) About hypertension material was printed on julienne Nov, senior care current use of insulin (ICD-10 - Z79.4) Nov, BMI 30.0-30.9,adult (ICD-10 - Z68.30) Deciphering the nutrition facts label material was printed [employer] Other 12-06-2021 Evaluation note* Encounter Date Diagnosis Assessment Notes Treatment Notes Treatment Clinical Notes Oct, Large hiatal hernia (ICD-10 - K44.9) Oct, Dyspnea on exertion (ICD-10 - R06.00) Oct, Alveolar hypoventilation (ICD-10 - R06.89) Please arrange for oxygen therapy at night at 2 L [employer] Other 11-16-2021 History of Present illness Narrative* 76 year old female with history of HTN, DM, HLD, RA, GERD and anxiety who presented to clinic todayfor large paraesophageal hernia. * Patient reports that he had the diagnosis of paraesophageal hernia long time ago when she was diagnosed with EGD. She was relatively asymptomatic at that time and it was monitored without surgical intervention. However in the past 6 month, patient developed worsening shortness of breath especially with exertion. She now feels short of breath after walking a few blocks. It is worse after eating a large meal and she has to rest to let the food go down to breath better. She has to reduce her activities as a result of her symptoms. She had cardiopulmonary work up at outside hospital that has been largely negative per patient. Denies chest pain or abdominal pain. Denies nausea, vomiting or change in bowel movements. She does have history of acid reflux for a long time, which is under controlwith medication. * PMHx: DM, HTN, HLD, RA, GERD, anxiety * PSHx: knee replacement, tonsillectomy, hysterectomy and tubal ligation, dental procedure * FHx: non contributory * SoHx: denies ETOH, smoking, drugs [address] Work Phone: [phone] Evaluation note* Encounter Date Diagnosis Assessment Notes Treatment Notes Treatment Clinical Notes Sep, Dyspnea on exertion (ICD-10 - R06.00) Sep, Large hiatal hernia (ICD-10 - K44.9) Sep, Mild persistent reactive airway disease without complication (ICD-10 - J45.30) [employer] Other 10-12-2021 Evaluation note* Encounter Date Diagnosis Assessment Notes Treatment Notes Treatment Clinical Notes Aug, Hyperlipidemia (ICD-10 - E78.5) [employer] Other 09-23-2021 Evaluation note* Encounter Date Diagnosis Assessment Notes Treatment Notes Treatment Clinical Notes Jul, Dietary counseling and surveillance (ICD-10 - Z71.3) Heart healthy diet material was printed Jul, Type 2 diabetes mellitus (ICD-10 - E11.9) Type 2 diabetes material was printed 1. Controlled, a Type 2 diabetes with A1c of 6.4% 2. Blood glucose levels stable. No changes to current diabetes medications today. 3. Patient is alert, oriented and receptive to making changes or counseling. Notes: Seen for an assessment of current glucose pattern, changes in treatment plan, with this time spent in counseling and coordination of care related to diabetes, risks, and benefits of treatment, medications, and side effects. TOPICS REVIEWED: 1. Time was spent reviewing: a. Basic concepts of diabetes, progressive beta cell , concepts of basal/bolus/correc tive insulin requirements. Basal: The goal is fasting blood glucose of 90-130mg. IF fasting blood glucose starts to run under 100mg 3x's/ week, decrease dose by 10%. Bolus: The goal is to hold the blood glucose level steady meal to meal. If pt. is going to have increased physical activity after a meal, decrease the schedule meal dose prior to the activity by 30-50%. If pt. skips a meal do not take this dose. Correction: The goal is to correct an elevated glucose back into the 100-150mg range b. Nutrition: Concepts of healthy diet, encouraged to decrease saturated fat in diet and increase non-starchy vegetables and fruits in diet. BMI: Pt. needs to select one small change to decrease caloric intake or increase physical activity to help decrease weight. c. Correct treatment of hypoglycemia, carry a glucose source at all times on your person, in vehicles, and at bedside. Can use glucose tablets/4, four ounces of pop or juice equal to 15 G of carbohydrate. Blood glucose should be 100 mg/dl or higher when driving. d. ADA glucose goals for age and medical complexity reviewed e. Patient questions addressed 2. Activity/exercise: Encouraged to start any form of physical activity. Start low level and increase slowly to a minimal goal of 150 minutes/week. Limit activity to what is allowed by other issues such as cardiac, pulmonary or orthopedic restrictions. 3. Standards of care: Reminded to have an annual dilated eye exam, A1C every 3 months, urine testing for microalbumin once/year, check feet daily and report any cuts or sores that do not appear to be healing. 4. Meter: Plan to check blood glucose: Please check blood glucose levels 3 times/day. Back to back meals reveal effectiveness of bolus dosing. 5. [facility]. Contact office if any issues or concerns with patterns of hypoglycemia, hyperglycemia, or diabetes medication issues. 6. Prescriptions: Will call when needed. 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 B 12 1392 [employer] Other Evaluation note* Diagnosis Anemia, unspecified type- Primary documented in this encounter [facility] noteNo InformationNort [place] Other Evaluation note* Psychological: appropriateExtremities: [id number]: soft, appropriately tender, incisionsc/d/i, mildly distendedCardiovascular: rrRespiratory/Thorax: on 1.5L NC, unlabored, symmetric chestriseHead/Neck: nc/at, NC in placeSkin: wwpConstitutional: NAD, aox3 [facility] noteNo assessment information available [facility] Work Phone: Evaluation note* Extremities: warm and well perfused, no edemaCardiovascular: RRRGenitourinary: voiding freelyGastrointestinal: soft, nondistended, nontender, incisions c/d/iRespiratory/Thorax: No conversational dyspnea, on RAHead/Neck: NC/ATENMT: MMMEyes: EOMISkin: warm, no cyanosis or jaundiceConstitutional: NAD,AAO, lying comfortably in bedMusculoskeletal: MAEPsychological: Appropriate mood and behavior [facility] Narrative - Reported* Type Description Date Medical History DM2 Medical History VITAMIN D DEFICIENCY Medical History HYPERLIPIDEMIA Surgical History tonsils Surgical History total hystrectomy Surgical History tubiligation Surgical History RT knee total knee replacement Surgical History Heart cath 06/2021 Hospitalization History [facility] Hospitalization History ABOVE SURGERY Hospitalization History [facility] Hospitalization History [facility] Hospitalization History [facility] 07/2015 Hospitalization History tooth infection/ elevate BS 10/24 [employer] Other History general Narrative - Reported* Type Description Date Medical History DM2 Medical History VITAMIN D DEFICIENCY Medical History HYPERLIPIDEMIA Surgical History tonsils Surgical History total hystrectomy Surgical History tubiligation Surgical History RT knee total knee replacement Surgical History Heart cath 06/2021 Surgical History hiatal hernia repair Hospitalization History [facility] Hospitalization History ABOVE SURGERY Hospitalization History [facility]-BLOOD LOSS Hospitalization History [facility] Hospital[facility] History [facility] 07/2015 Hospitalization History tooth infection/ elevate BS 10/24 Hospitalization History [facility] Hiatal Hernia remova l 06/2022 [employer] Other History general Narrative - Reported* Type Description Date Medical History DM2 Medical History VITAMIN D DEFICIENCY Medical History HYPERLIPIDEMIA Surgical History tonsils Surgical History total hystrectomy Surgical History tubiligation Surgical History RT knee total knee replacement Surgical History Heart cath 06/2021 Surgical History hiatal hernia repair Surgical History BILATERAL CATARACT REMOVAL 02/ 023 Hospitalization History [facility] Hospitalization History ABOVE SURGERY Hospitalization History [facility]BLOOD LOSS [facility]ization History [facility] Hospitalization History [facility] 07/2015 Hospitalization History tooth infection/ elevate BS 10/24 Hospitalization History [facility] Hiatal Hernia remova l 06/2022 [employer] Other Hospital Discharge instructions* Activity:activity as tolerated. May not shower until follow-up visit. May not drive until follow-up visit. * Oxygen:Administer oxygen at 2 via to maintain SpO2 % of 92. * Call Provider If:Breathing faster than normal. Breathing harder than normal or having retractions. Fever of 100.4 F (38 C) or higher. Temperature is greater than 102 degrees. Chills. Drinking less than normal. Acting very sleepy and difficult to awaken. Vomiting (throwing up) and not able to eat ordrink for 12 hours. Any new concerning symptoms. * Home Care Face to Face Certification:Home Care Services Needed: yesHome Care Agency: Other (with phone number), [facility] Sk[facility] Disciplines Ordered: PT, OTFace to Face Encounter Completed: yesDate of Encounter: [id number] Necessity for Homecare (based on clinical findings): PT/OT is needed to further improve strength, endurance, and balance to increase safe mobility andindependence. Homebound Status: homeboundHomebound Due to: Patient is temporarily homebound due to S/P paraesophageal hernia repair and is currently walker dependent with weakness during ambulation. Face to Face Completed and Home Care Orders Reviewed: I certify that this patient is under my care. I have reviewed the information included in the face to face and certify that the home care servicesordered are medically necessary for this patient. * Home Care Skilled Service:Home Care Skilled Service: Rehab (PT/OT/SP eval and treat)Rehab: [facility] Visit: day after discharge * Follow Up Appointment 1:Physician/Dept/Service: Dr. Sergei Murray department of SurgeryReason for Referral: Follow-upCall to Schedule in: 1 weekPhone Number: [phone]: PLEASE CALL TO SCHEDULE A FOLLOW-UP APPOINTMENT WITH DR. MURRAY FOR 1-2 WEEKS FROM DISCHARGE. * Follow Up Appointment 2:Physician/Dept/Service: PCPEssie for Referral: Please follow up with your primary care physician in regards to your oxygen status and managementComments: Please call to schedule a follow up appointment within the next week with your PCP. [facility]* Activity:activity as tolerated. May shower. May return to school/work Instructions:. May drive. if not taking narcotic pain medicine. * Call Provider If:Breathing faster than normal. Breathing harder than normal or having retractions. Fever of 100.4 F (38 C) or higher. Chills. Drinking less than normal. Urinating less than normal, over 1 day. Acting very sleepy and difficult to awaken. Vomiting (throwing up) and not able to eat or drink for 12 hours. 3 or more loose, watery bowel movements in 24 hours (diarrhea). Any new concerning symptoms. * Home Care Face to Face Certification:Home Care Services Needed: yesHome Care Agency: Other (with phone number), [facility] Skilled Disciplines Ordered: PT, OTFace to Face Encounter Completed: yesDate of Encounter: [id number] Necessity for Homecare (based on clinical findings): PT/OT is needed to further improve strength, endurance, and balance to increase safe mobility andindependence. Homebound Status: homeboundHomebound Due to: Patient is temporarily homebound due to S/P paraesophageal hernia repair and is currently walker dependent with weakness during ambulation. Face to Face Completed and Home Care Orders Reviewed: I certify that this patient is under my care. I have reviewed the information included in the face to face and certify that the home care servicesordered are medically necessary for this patient. * Home Care Skilled Service:Home Care Skilled Service: Rehab (PT/OT/SP eval and treat)Rehab: [facility] Visit: day after discharge * Follow Up Appointment 1:Physician/Dept/Service: Dr. Murray / General SurgeryReason for Referral: Follow-up appointment post-dischargeCall to Schedule in: 1 weekLocation[facility] [address]Comments: Please call to schedule a follow-up appointment to be seen in clinic in 1-2 weeks after discharge [facility] for referral (narrative)* Reason for Referral: Paraesophageal hernia s/p repair [facility] Chief Complaint NPV paraesophageal hernia Family History Unknown Family Member Name Dates Details Family history of malignant neoplasm of breast: Mother(V16.3, Z80.3) Status:Active Heart problem: Father Status:Active Unknown Family Member Name Dates Details Family history of malignant neoplasm of breast: Mother(V16.3, Z80.3) Status:Active Heart problem: Father, Siste r Status:Active Family history of aortic ane urysm: Father(V17.49, Z82.49) Status:Active Unknown Family Member Name Dates Details Family history of malignant neoplasm of breast: Mother(V16.3, Z80.3) Status:Active Heart problem: Father, Siste r Status:Active Family history of aortic ane urysm: Father(V17.49, Z82.49) Status:Active Relationship Condition Age at Onset Recorded Date/T johnathan sister Congestive heart failure Unknown father Aneurysm Unknown Not Specified Malignant neoplasm of breast Unknown Unknown Family Member Name Dates Details Family history of malignant neoplasm of breast: Mother(V16.3, Z80.3) Status:Active Heart problem: Father, Siste r Status:Active Family history of aortic ane urysm: Father(V17.49, Z82.49) Status:Active Summary Purpose Advance Directives Advance Directive Response Recorded Date/ Time Advance Directives Yes July 12:12pm Chief Complaint and Reason for Visit Chief Complaint E11.39, E11.65 Vomitting/Diarrhea Chief Complaint E11.39, E11.65 incomplete colonoscopy Chief Complaint E11.39, E11.65 incomplete colonoscopy E11.9 E78.5 Chief Complaint E11.9 E78.5 E11.39, E11.65 r10.9 Chief Complaint E11.9 E78.5 E11.39, E11.65 r10.9 N28.89 Additional Source Comments Source Comments (unrecognize d section and content) In the event this informatio n is protected by the Federal Confidentiality of Alcohol and Drug Abuse Patient Records regulations: The Federal rules restrict any use of the information to criminally investigate or prosecute any alcohol or drug abuse patient.[facility], IncIn the event this information is protected by the Federal Confidentiality of Alcohol and Drug Abuse Patient Records regulations: The Federal rules restrict any use of the information to criminally investigate or prosecute any alcohol or drug abuse patient.[facility] Reason for Visit (unrecogniz ed section and content) TKM resend rx Reason Comments Lab Orders Reason Comments Appointment Care Teams (unrecognized sec tion and content) Team Status: Active Member Role Status Dates Homero Enrique DO Primary Care Provider Active Team Status: Active Member Role Status Dates Homero Enrique DO Primary Care Provider Active Kaleigh Segovia APRN Attending Provider Active Team Status: Inactive Member Role Status Dates Homero Enrique DO Primary Care Provider Active Kalin Andersen DO Attending Provider Active Test Automation Architect Relationship Specialty Start Date End Date Homero Enrique [address] [place] [address] PCP - General Family Practice 03/31/12 Kaleigh Segovia, PALEOLOGY PROFESSOR [address] [place] [address] [facility] 04/29/21 Test Automation Architect Relationship Specialty Start Date End Date Homero Enrique Félix [address] [place] [address] PCP - General Family Practice 03/31/12 Kaleigh Segovia, PALEOLOGY PROFESSOR [address] [place] [address] [facility] 04/29/21 Team Status: Inactive Member Role Status Dates Homero Enrique DO Primary Care Provider Active Porfirio Isaacs DO Emergency Provider Active Team Status: Inactive Member Role Status Dates Homero Enrique DO Primary Care Provider Active Kaleigh Segovia APRN Attending Provider Active Team Status: Inactive Member Role Status Dates Homero Enrique , Primary Care Provider, Attending Maxine pena Active INFORMATION SOURCE (unrecogn ized section and content) DATE CREATED AUTHOR 05/20/2022 [facility] DATE CREATED AUTHOR AUTHOR'S ORGANIZ ATION 09/15/2022 [facility] DATE CREATED AUTHOR AUTHOR'S ORGANIZ ATION 09/16/2022 [employer] DATE CREATED AUTHOR AUTHOR'S ORGANIZ ATION 07/29/2023 [facility] DATE CREATED AUTHOR AUTHOR'S ORGANIZ ATION 09/08/2023 [facility] l <item><item> Privacy Markings (unrecogniz ed section and content) Section Author: Mago Arias PROHIBITION ON REDISCLOSURE OF CONFIDENTIAL INFORMATION This notice accompanies a disclosure of information concerning a client made to you with the consent of such client. Section Author: Mago Arias PROHIBITION ON REDISCLOSURE OF CONFIDENTIAL INFORMATION This notice accompanies a disclosure of information concerning a client made to you with the consent of such client. Goals (unrecognized section and content) Goals may be documented in a n alternate section FOR RECORDS PERTAINING TO PATIENTS WHO ARE OR HAVE BEEN ENROLLED IN A CHEMICAL DEPENDENCY/SUBSTANCEABUSE PROGRAM, SOME INFORMATION MAY BE OMITTED. This clinical summary was aggregated from multiple sources. Caution should be exercised in using it in the provision of clinical care. This summary normalizes information from multiple sources, and as a consequence, information in this document may materially change the coding, format and clinical context of patient data. In addition, data may be omitted in some cases. CLINICAL DECISIONS SHOULD BE BASED ON THE PRIMARY CLINICAL RECORDS. [employer] provides no warranty or guarantee of the accuracy or completeness of information in this document.
== END 2023-09-25 09:03 | disposition home or self-care (01) ==
LOC: VC 09:02
PROVIDERS: PCP Radiology Diagnostic Radiology; Visit Provider Radiology Diagnostic Radiology
DX: I83.813 Varicose veins of bilateral lower extremities with pain (principal)
CPT/HCPCS: 36466

== ENCOUNTER 2023-09-28 09:28 | Outpatient (OUT) | payer MEDICARE, BC, SELFPAY ==
--- NOTE | 2023-09-28 09:29 | VEIN_ITS ---
Patient Name: BROWN LAI MR#: [id number] : 1945 Exam Date: 09/28/2023 Ordering Doctor: DR FIDELIA ALAN M.D. RADIOLOGY REPORT PROCEDURE: [facility] L[facility] VEIN CENTER - OFFICE VISIT FOLLOW UP COMPARISON: [facility], 09/11/2023. PROGRESS NOTES: The patient reports improvement in leg symptoms. There has been interval reduction in varicosities. The patient has followed our recommendations to walk 20-30 minutes once or twice per day since the procedure. Physical exam demonstrates decrease in varicosities of the leg. No remaining treatable varicosities. Review of the ultrasound performed the same day demonstrates occlusive thrombus extending throughout the treated vein(s), see separate report, consistent with a successful ablation. No thrombus extending into or beyond the saphenofemoral junction. The patient expressed a desire to proceed with treatment of spider veins of right and left legs. The patient was informed that treatment was a process and would require several procedures/sessions. [facility]: 1. Successful ablation of the left leg treated branch saphenous vein(s). 2. Persistent spider veins and mild lower extremity symptoms. PLAN: Sclerotherapy of bilateral lower extremity spider veins. Nurse notes, history and physical were reviewed and confirmed, see attached forms. The nurse was present throughout the physical exam and consultation Dictated by: Homero Mcgee M.D. on 09/28/2023 at 11:59 Approved by: Homero Mcgee M.D. on 09/28/2023 at 12:00
--- NOTE | 2023-09-28 09:29 | VEIN_ITS ---
Patient Name: BROWN LAI MR#: [id number] : 1945 Exam Date: 09/28/2023 Ordering Doctor: DR FIDELIA ALAN M.D. RADIOLOGY REPORT PROCEDURE: VC EXT VENOUS LT LIMITED COMPARISON: VC EXT VENOUS LT LIMITED, 09/11/2023. INDICATIONS: I80.02 Phlebitis of superficial veins of lt lower extremity TECHNIQUE: Lower extremity king scale and Duplex Doppler evaluation of the deep venous system from the inguinal ligament through the calf veins. FINDINGS: REGION: Left lower extremity. THROMBI: Negative for DVT. Varithena induced thrombus visualized at prox/post calf and dist/post thigh. COMPRESSIBILITY: Non-compressible segments corresponding to thrombus FLOW: Areas of no flow corresponding to thrombus OTHER: No patent varicose veins remain. CONCLUSION: 1. Successful post ablation occlusion of left leg treated branch saphenous varicosities. Dictated by: Homero Mcgee M.D. on 09/28/2023 at 11:16 Approved by: Homero Mcgee M.D. on 09/28/2023 at 11:58
== END 2023-09-28 09:29 | disposition home or self-care (01) ==
LOC: VC 09:28
PROVIDERS: PCP Radiology Diagnostic Radiology; Visit Provider Radiology Diagnostic Radiology
DX: I80.02 Phlebitis and thrombophlebitis of superficial vessels of left lower extremity (principal)
CPT/HCPCS: 93971; G0463

== ENCOUNTER 2023-10-08 13:58 | Outpatient (OUT) | payer MEDICARE, BC, SELFPAY ==
--- NOTE | 2023-10-08 14:07 | VEIN_ITS ---
[address] [address] Patient Name: BROWN LAI MRN: [id number] date: 1945 Sex: F Assigned Patient Location: Current Patient Location: Accession/Order Number: [id number] Exam Date: 10/08/2023 14:00 Report Date: 10/09/2023 07:04 At the request of: FIDELIA ALAN Procedure: VC INJ Sclerosing SOLMULT Vein EXAMINATION: VC INJ Sclerosing SOLMULT Vein HISTORY: Pain due to varicose veins of bilateral legs I83.813 The risks and benefits of the procedure were explained at length to the patient and informed written consent was obtained. The procedure was performed under sterile technique. The patient's leg was wrapped with Coban and postprocedural verbal and written instructions provided. Kobe Donahue RN was present and assisted. SCLEROSANT: 2mL 0.5% Polidocanol. VEIN(S) INJECTED: 22 veins in the left. VISUALIZATION: Ultrasound was not used to visualize the sclerosant. ANESTHESIA: Supercooled air. COMPLICATIONS: None. Electronically authenticated by: ROBIN CHARLES Date: 10/09/2023 07:04
== END 2023-10-08 13:59 | disposition home or self-care (01) ==
LOC: VC 13:58
PROVIDERS: PCP Radiology Diagnostic Radiology; Visit Provider Radiology Diagnostic Radiology
DX: I83.813 Varicose veins of bilateral lower extremities with pain (principal)
CPT/HCPCS: 36471